=== PATIENT | male | born 1955 | race Caucasian/White ===

== ENCOUNTER 2017-03-19 20:01 | Emergency (ER) | payer OTHER, MEDICARE ==
[2017-03-19] MEDS ORDERED: Phenergan 25 MG INJ IV ONE ×2 (20:09→21:11)
[2017-03-19] MEDS ORDERED: Sodium Chloride 0.9% 1000 ML 1,000 ML IV STA (20:09)
--- NOTE | 2017-03-19 20:09 | ERPHSYRPT ---
- History of Present Illness Time Seen by Provider: 03/19/17 20:11 Historian: patient, family () Exam Limitations: no limitations Physician History: FOR THE PAST 3 DAYS PT HAS HAD A DECREASED APPETITE; FOR THE PAST 12 HOURS VOMITING X10 WITHOUT BLOOD. LAST BM WAS YESTERDAY AND NOT DIARRHEAL. PT HAS A HX OF CHRONIC BACK PAIN AND HEADACHES. PT DENIES CHEST PAIN, FEVER, SHORTNESS OF AIR; ADMITS TO SORE THROAT SINCE HE STARTED VOMITING THIS AM. PT STATES HE IS THIRSTY. Allergies/Adverse Reactions: ketorolac tromethamine [From Toradol] Allergy (Mild, Verified 05/18/16 23:15) Swelling lorazepam [From Ativan] Allergy (Mild, Verified 05/18/16 23:15) nalbuphine HCl [From Nubain] Allergy (Mild, Verified 05/18/16 23:15) Swelling gabapentin Allergy (Verified 05/18/16 23:15) Home Medications: Albuterol Common Canister [Proventil Common Canister] 2 puff IH BID [History] Amlodipine Besylate 5 mg PO DAILY 03/16/16 [History] Aspirin 81 mg PO DAILY 03/16/16 [History] Cyclobenzaprine HCl 10 mg [Cyclobenzaprine 10 MG] 10 mg PO TID 03/16/16 [ History] Docusate Sodium [Stool Softener] 50 mg PO DAILY 03/16/16 [History] Hydrocodone Bit/Acetaminophen [Hydrocodon-Acetaminophn 10-325] 1 each PO Q4- 6HPRN PRN 03/16/16 [History] Levothyroxine Sodium [Synthroid] 25 mcg PO DAILY 03/16/16 [History] Lisinopril 10 mg [Zestril 10 MG] 10 mg PO DAILY 03/16/16 [History] Morphine Sulfate [Morphine Sulfate ER] 60 mg PO BID 03/16/16 [History] Omeprazole 20 MG [Prilosec 20 mg] 20 mg PO DAILY 03/16/16 [History] Venlafaxine HCl [Effexor] 0 mg PO DAILY 03/16/16 [History] Hx Tetanus, Diphtheria Vaccination/Date Given: Yes (UP TO DATE) Hx Influenza Vaccination/Date Given: Yes Hx Pneumococcal Vaccination/Date Given: Yes - Review of Systems Constitutional: No Fever Respiratory: No Dyspnea Cardiac: No Chest Pain Abdominal/Gastrointestinal: Vomiting, Appetite Changes (DECREASED X 3 DAYS), No Diarrhea Musculoskeletal: Back Pain Neurological: Headache Endocrine: Other (THIRST), No Excessive Sweating All Other Systems: Reviewed and Negative - Past Medical History Pertinent Past Medical History: Yes Neurological History: Migraines ENT History: No Pertinent History Cardiac History: Hypertension, Myocardial Infarction ([place]) Respiratory History: Asthma, COPD Endocrine Medical History: No Pertinent History Musculoskeletal History: Arthritis, Other GI Medical History: Other History: Other Psycho-Social History: No Pertinent History Male Reproductive Disorders: No Pertinent History Other Medical History: HEART BURN. ACUTE RENAL FAILURE - Past Surgical History Past Surgical History: Yes Neuro Surgical History: No Pertinent History Cardiac: Cardiac Catheterization Respiratory: No Pertinent History Gastrointestinal: No Pertinent History Genitourinary: No Pertinent History Musculoskeletal: Orthopedic Surgery Male Surgical History: No Pertinent History Other Surgical History: neck, back lucía shoulders, lower back - Social History Smoking Status: Current every day smoker How long have you smoked: 40 Exposure to second hand smoke: Yes Drug Use: none Patient Lives Alone: No - Nursing Vital Signs Nursing Vital Signs: Initial Vital Signs Temperature 99.8 F Temperature Source Rectal Pulse Rate 52 Respiratory Rate 22 Blood Pressure [Right Arm] 133/77 Pain Intensity 9 - Physical Exam General Appearance: alert Eye Exam: PERRL/EOMI Ears, Nose, Throat Exam: TMs normal, pharyngeal erythema (MILD) Neck Exam: normal inspection Respiratory Exam: lungs clear Cardiovascular Exam: normal heart sounds Gastrointestinal/Abdomen Exam: soft, other (B.S. MILDLY HYPERACTIVE AND NORMOTONIC), No tenderness Back Exam: normal inspection Extremity Exam: normal inspection, No pedal edema Neurologic Exam: alert, cooperative Skin Exam: warm, dry - Course Nursing assessment & vital signs reviewed: Yes Ordered Tests: Active Orders 24 hr Category Date Time Status Cath for Specimen-Straight STAT Care 03/19/17 20:42 Active IV Insertion STAT Care 03/19/17 20:09 Active AMYLASE Stat Lab 03/19/17 20:30 Completed BMP Stat Lab 03/19/17 23:45 Completed CBC W DIFF Stat Lab 03/19/17 20:30 Completed CMP Stat Lab 03/19/17 20:30 Completed CULTURE, THROAT Stat Lab 03/19/17 21:20 Received CULTURE,URINE Stat Lab 03/19/17 20:38 Received LIPASE Stat Lab 03/19/17 20:30 Completed MAG [MAGNESIUM] Stat Lab 03/19/17 20:30 Completed [place] Screen Stat Lab 03/19/17 20:30 Completed STREP SCREEN-BETA A Stat Lab 03/19/17 21:20 Completed UA W/ MICROSCOPIC Stat Lab 03/19/17 20:38 Completed Urine Triage Profile Stat Lab 03/19/17 20:38 Completed Medication Summary Generic Name Dose Route Start Last Admin Trade Name Freq PRN Reason Stop Dose Admin Potassium Chloride/Sodium Chloride 1,000 mls @ 500 mls/hr 03/19/17 21:15 06/27 21:24 Sodium Chloride 0.9% W/ 20 Meq Kcl/Liter IV 04/18/17 21:14 500 mls/hr .Q2H NII Administration Potassium Chloride 20 meq 03/20/17 00:41 Klor Con 10 Meq PO 03/20/17 00:42 STAT ONE Discontinued Medications Generic Name Dose Route Start Last Admin Trade Name Abdullahiq PRN Reason Stop Dose Admin Hydromorphone HCl 2 mg 03/19/17 20:18 03/19/17 20:25 Hydromorphone 1 Mg/Ml Ampule IV 03/19/17 20:19 2 mg STAT ONE Administration Hydromorphone HCl Confirm 03/19/17 20:21 Hydromorphone 1 Mg/Ml Ampule Administered 03/19/17 20:22 Dose 1 mg .ROUTE .STK-MED ONE Hydromorphone HCl Confirm 03/19/17 20:26 Hydromorphone 1 Mg/Ml Ampule Administered 03/19/17 20:27 Dose 1 mg .ROUTE .STK-MED ONE Hydromorphone HCl 1 mg 03/19/17 21:11 03/19/17 21:26 Hydromorphone 1 Mg/Ml Ampule IV 03/19/17 21:12 1 mg STAT ONE Administration Hydromorphone HCl Confirm 03/19/17 21:20 Hydromorphone 1 Mg/Ml Ampule Administered 03/19/17 21:21 Dose 1 mg .ROUTE .STK-MED ONE Sodium Chloride 1,000 mls @ 999 mls/hr 03/19/17 20:09 03/19/17 20:40 Sodium Chloride 0.9% 1000 Ml IV 03/19/17 21:09 999 mls/hr .Q1H1M STA Administration Sodium Chloride Confirm 03/19/17 20:20 Sodium Chloride 0.9% 1000 Ml Administered 03/19/17 20:21 Dose 1,000 mls @ ud .ROUTE .STK-MED ONE Promethazine HCl 12.5 mg 03/19/17 20:09 03/19/17 20:24 Phenergan 25 Mg Inj IV 03/19/17 20:10 12.5 mg STAT ONE Administration Promethazine HCl Confirm 03/19/17 20:20 Phenergan 25 Mg Inj Administered 03/19/17 20:21 Dose 25 mg .ROUTE .STK-MED ONE Promethazine HCl Confirm 03/19/17 20:33 Phenergan 25 Mg Inj Administered 03/19/17 20:34 Dose 25 mg .ROUTE .STK-MED ONE Promethazine HCl 12.5 mg 03/19/17 21:11 03/19/17 21:26 Phenergan 25 Mg Inj IV 03/19/17 21:12 12.5 mg STAT ONE Administration Promethazine HCl Confirm 03/19/17 21:13 Phenergan 25 Mg Supp Administered 03/19/17 21:14 Dose 25 mg .ROUTE .STK-MED ONE Promethazine HCl Confirm 03/19/17 21:20 Phenergan 25 Mg Inj Administered 03/19/17 21:21 Dose 25 mg .ROUTE .STK-MED ONE Lab/Rad Data: Laboratory Result Diagrams 03/19/17 20:30 03/19/17 23:45 Laboratory Results 03/19/17 03/19/17 03/19/17 Range/Units 23:45 21:20 20:38 WBC (4.0-10.5) K/mm3 RBC (4.1-5.6) M/mm3 Hgb (12.5-18.0) gm/dl Hct (42-50) % MCV (78-100) fl MCH (26-32) pg MCHC (32-36) g/dl RDW (11.5-14.0) % Plt Count (150-450) K/mm3 MPV (6-9.5) fl Gran % (36.0-66.0) % Lymphocytes % (24.0-44.0) % Monocytes % (0.0-12.0) % Eosinophils % (0.00-5.0) % Basophils % (0.0-0.4) % Basophils # (0-0.4) Sodium 141 (136-145) mEq/L Potassium 3.4 L (3.5-5.1) mEq/L Chloride 108 H (98-107) mEq/L Carbon Dioxide 28.4 (21-32) mEq/L Anion Gap 8.3 (5-15) MEQ/L BUN 9 (9-20) mg/dL Creatinine 0.89 (0.55-1.30) mg/dl Estimated GFR > 60 ML/MIN Glucose 96 (70-110) MG/DL Calcium 8.0 L (8.5-10.1) mg/dL Magnesium (1.8-2.4) mg/dL Total Bilirubin (0.2-1.0) mg/dL AST (15-37) U/L ALT (12-78) U/L Alkaline Phosphatase (46-116) U/L Serum Total Protein (6.4-8.2) gm/dL Albumin (3.4-5.0) g/dL Amylase (25-115) U/L Lipase (73-393) U/L Ur Collection Type Urine Color (YELLOW) Urine Appearance (CLEAR) Urine pH (5-6) Ur Specific [place] (1.005-1.025) Urine Protein (Negative) Urine Glucose (UA) (NEGATIVE) mg/dL Urine Ketones (NEGATIVE) Urine Nitrite (NEGATIVE) Urine Bilirubin (NEGATIVE) Urine Urobilinogen (0-1) mg/dL Urine WBC (Auto) (NEGATIVE) Urine RBC (Auto) (0-5) Jourdan/ul Urine Microscopic RBC (0-2) /HPF Ur Epithelial Cells (FEW) /HPF Urine Bacteria (NEGATIVE) /HPF Urine Mucus (NEGATIVE) /HPF Urine Opiates Level POS. (NEGATIVE) Ur Methadone NEG. (NEGATIVE) Urine Barbiturates NEG. (NEGATIVE) Ur Phencyclidine (PCP) NEG. (NEGATIVE) Urine Amphetamine NEG. (NEGATIVE) U Benzodiazepine Level NEG. (NEGATIVE) Urine Cocaine NEG. (NEGATIVE) Urine Marijuana (THC) NEG. (NEGATIVE) Monoscreen (Negative) Streptococcus Screen NEGATIVE (Negative) Specimen Received 03/19/17 03/19/17 03/19/17 Range/Units 20:38 20:30 20:30 WBC (4.0-10.5) K/mm3 RBC (4.1-5.6) M/mm3 Hgb (12.5-18.0) gm/dl Hct (42-50) % MCV (78-100) fl MCH (26-32) pg MCHC (32-36) g/dl RDW (11.5-14.0) % Plt Count (150-450) K/mm3 MPV (6-9.5) fl Gran % (36.0-66.0) % Lymphocytes % (24.0-44.0) % Monocytes % (0.0-12.0) % Eosinophils % (0.00-5.0) % Basophils % (0.0-0.4) % Basophils # (0-0.4) Sodium (136-145) mEq/L Potassium (3.5-5.1) mEq/L Chloride (98-107) mEq/L Carbon Dioxide (21-32) mEq/L Anion Gap (5-15) MEQ/L BUN (9-20) mg/dL Creatinine (0.55-1.30) mg/dl Estimated GFR ML/MIN Glucose (70-110) MG/DL Calcium (8.5-10.1) mg/dL Magnesium 1.9 (1.8-2.4) mg/dL Total Bilirubin (0.2-1.0) mg/dL AST (15-37) U/L ALT (12-78) U/L Alkaline Phosphatase (46-116) U/L Serum Total Protein (6.4-8.2) gm/dL Albumin (3.4-5.0) g/dL Amylase (25-115) U/L Lipase (73-393) U/L Ur Collection Type CATH Urine Color ONUR (YELLOW) Urine Appearance SLIGHTLY CLOUDY (CLEAR) Urine pH 6.0 (5-6) Ur Specific [place] >=1.030 (1.005-1.025) Urine Protein 100 (Negative) Urine Glucose (UA) NEGATIVE (NEGATIVE) mg/dL Urine Ketones SMALL-15 (NEGATIVE) Urine Nitrite NEGATIVE (NEGATIVE) Urine Bilirubin SMALL (NEGATIVE) Urine Urobilinogen >=8.0 (0-1) mg/dL Urine WBC (Auto) NEGATIVE (NEGATIVE) Urine RBC (Auto) TRACE HEMOLYZED (0-5) Jourdan/ul Urine Microscopic RBC 0-2 (0-2) /HPF Ur Epithelial Cells RARE (FEW) /HPF Urine Bacteria FEW (NEGATIVE) /HPF Urine Mucus SLIGHT (NEGATIVE) /HPF Urine Opiates Level (NEGATIVE) Ur Methadone (NEGATIVE) Urine Barbiturates (NEGATIVE) Ur Phencyclidine (PCP) (NEGATIVE) Urine Amphetamine (NEGATIVE) U Benzodiazepine Level (NEGATIVE) Urine Cocaine (NEGATIVE) Urine Marijuana (THC) (NEGATIVE) Monoscreen POSITIVE (Negative) Streptococcus Screen (Negative) Specimen Received 03/19/17:203703/19/17 03/19/17 Range/Units 20:30 20:30 WBC 10.2 (4.0-10.5) K/mm3 RBC 5.33 (4.1-5.6) M/mm3 Hgb 15.7 (12.5-18.0) gm/dl Hct 45.3 (42-50) % MCV 85.0 (78-100) fl MCH 29.5 (26-32) pg MCHC 34.7 (32-36) g/dl RDW 13.9 (11.5-14.0) % Plt Count 313 (150-450) K/mm3 MPV 11.2 H (6-9.5) fl Gran % 71.1 H (36.0-66.0) % Lymphocytes % 21.6 L (24.0-44.0) % Monocytes % 6.2 (0.0-12.0) % Eosinophils % 0.7 (0.00-5.0) % Basophils % 0.4 (0.0-0.4) % Basophils # 0.04 (0-0.4) Sodium 140 (136-145) mEq/L Potassium 3.4 L (3.5-5.1) mEq/L Chloride 102 (98-107) mEq/L Carbon Dioxide 29.5 (21-32) mEq/L Anion Gap 12.2 (5-15) MEQ/L BUN 9 (9-20) mg/dL Creatinine 1.19 (0.55-1.30) mg/dl Estimated GFR > 60 ML/MIN Glucose 141 H (70-110) MG/DL Calcium 9.8 (8.5-10.1) mg/dL Magnesium (1.8-2.4) mg/dL Total Bilirubin 0.60 (0.2-1.0) mg/dL AST 42 H (15-37) U/L ALT 23 (12-78) U/L Alkaline Phosphatase 106 (46-116) U/L Serum Total Protein 8.5 H (6.4-8.2) gm/dL Albumin 3.8 (3.4-5.0) g/dL Amylase 67 (25-115) U/L Lipase 73 (73-393) U/L Ur Collection Type Urine Color (YELLOW) Urine Appearance (CLEAR) Urine pH (5-6) Ur Specific [place] (1.005-1.025) Urine Protein (Negative) Urine Glucose (UA) (NEGATIVE) mg/dL Urine Ketones (NEGATIVE) Urine Nitrite (NEGATIVE) Urine Bilirubin (NEGATIVE) Urine Urobilinogen (0-1) mg/dL Urine WBC (Auto) (NEGATIVE) Urine RBC (Auto) (0-5) Jourdan/ul Urine Microscopic RBC (0-2) /HPF Ur Epithelial Cells (FEW) /HPF Urine Bacteria (NEGATIVE) /HPF Urine Mucus (NEGATIVE) /HPF Urine Opiates Level (NEGATIVE) Ur Methadone (NEGATIVE) Urine Barbiturates (NEGATIVE) Ur Phencyclidine (PCP) (NEGATIVE) Urine Amphetamine (NEGATIVE) U Benzodiazepine Level (NEGATIVE) Urine Cocaine (NEGATIVE) Urine Marijuana (THC) (NEGATIVE) Monoscreen (Negative) Streptococcus Screen (Negative) Specimen Received - Departure Time of Disposition: 00:42 Departure Disposition: Home Clinical Impression: INFECTIOUS MONONUCLEOSIS, VOMITING, HYPOKALEMIA Condition: Stable Critical Care Time: No Referrals: MYNOR SCHULTE [Primary Care Provider] - Instructions: Vomiting -- Adult, Mononucleosis Additional Instructions: FOLLOW UP WITH PRIVATE DOCTOR TOMORROW. Prescriptions: Promethazine HCl 25 mg [Phenergan 25 mg] 25 mg PO Q4H PRN PRN #14 tablet PRN Reason: Nausea/Vomiting
[2017-03-19] MEDS ORDERED: Hydromorphone 1 mg/ml Ampule IV ONE ×2 (20:18→21:11)
[2017-03-19] MEDS ORDERED: Sodium Chloride 0.9% 1000 ML 1,000 ML ONE (20:20)
[2017-03-19] MEDS ORDERED: Phenergan 25 MG INJ ONE ×3 (20:20→21:20)
[2017-03-19] MEDS ORDERED: Hydromorphone 1 mg/ml Ampule ONE ×3 (20:21→21:20)
[2017-03-19 20:40] LABS: BASOPHIL % 0.4 % (0.0-0.4); Eosinophil % 0.7 % (0.00-5.0); Granulocytes % 71.1 % (36.0-66.0); Lymphocytes % 21.6 % (24.0-44.0); Mean Corpuscular Hemoglobin 29.5 pg (26-32); Mean Platelet Volume 11.2 fl (6-9.5); Monocytes % 6.2 % (0.0-12.0); Platelet Count 313 K/mm3 (150-450); Red Blood Count 5.33 M/mm3 (4.1-5.6); Red Cell Distribution Width 13.9 % (11.5-14.0); White Blood Count 10.2 K/mm3 (4.0-10.5)
[2017-03-19 20:51] LABS: ADD URINE CULTURE? YES (NO); Bacteria FEW /HPF (NEGATIVE); COMPLETE URINE MICROSCOPIC? YES; Collection Type CATH; Epithelial Cells RARE /HPF (FEW); Mucus SLIGHT /HPF (NEGATIVE)
[2017-03-19 21:00] LABS: ALBUMIN 3.8 g/dL (3.4-5.0); ALKALINE PHOSPHATASE 106 U/L (46-116); ANION GAP 12.2 MEQ/L (5-15); BLOOD UREA NITROGEN 9 mg/dL (9-20); CHLORIDE 102 mEq/L (98-107); Carbon Dioxide 29.5 mEq/L (21-32); Glucose 141 MG/DL (70-110); LIPASE 73 U/L (73-393); Potassium 3.4 mEq/L (3.5-5.1); SGOT/AST 42 U/L (15-37); SGPT/ALT 23 U/L (12-78); SODIUM 140 mEq/L (136-145); Total Protein 8.5 gm/dL (6.4-8.2)
[2017-03-19] MEDS ORDERED: PHENERGAN 25 MG ONE (21:13)
[2017-03-19] MEDS ORDERED: Sodium Chloride 0.9% W/ 20 mEq KCl/LITER 1,000 ML IV ONE (21:14)
[2017-03-19] MEDS ORDERED: Sodium Chloride 0.9% W/ 20 mEq KCl/LITER 1,000 ML IV SCH (21:15)
[2017-03-20 00:17] LABS: ANION GAP 8.3 MEQ/L (5-15); BLOOD UREA NITROGEN 9 mg/dL (9-20); CHLORIDE 108 mEq/L (98-107); Carbon Dioxide 28.4 mEq/L (21-32); Glucose 96 MG/DL (70-110); Potassium 3.4 mEq/L (3.5-5.1); SODIUM 141 mEq/L (136-145)
[2017-03-20] MEDS ORDERED: Klor Con 10 MEQ PO ONE ×2 (00:41→00:44)
[2017-03-20 00:53] VITALS: BP 136/78; PULSE 62; O2SAT 97
== END 2017-03-20 00:53 | disposition home or self-care (01) ==
LOC: ED 20:01
DX: B27.90 Infectious mononucleosis, unspecified without complication (principal); R11.10 Vomiting, unspecified; E87.6 Hypokalemia; R63.1 Polydipsia; I10 Essential (primary) hypertension; I25.2 Old myocardial infarction; J44.9 Chronic obstructive pulmonary disease, unspecified; Z79.899 Other long term (current) drug therapy
CPT/HCPCS: 36000; 36415; 80048; 80053; 80307; 81000; 82150; 83690; 83735; 85025; 86308; 87070; 87086; 87430; 96360; 96361; 96374; 96375; 96376; 99284; J1170; J2550; P9612; A9270-GY

== ENCOUNTER 2017-06-12 23:02 | Emergency (ER) | payer OTHER, MEDICARE ==
[2017-06-12] MEDS ORDERED: Zofran 4 MG/2 ML VIAL IV ONE (23:34)
[2017-06-12] MEDS ORDERED: Sodium Chloride 0.9% 1000 ML 1,000 ML IV STA (23:34)
[2017-06-12] MEDS ORDERED: BENADRYL 50 MG/ML IV ONE (23:34)
[2017-06-12] MEDS ORDERED: Hydromorphone 1 mg/ml Ampule IV ONE (23:34)
--- NOTE | 2017-06-12 23:34 | ERPHSYRPT ---
- History of Present Illness Time Seen by Provider: 06/12/17 23:31 Historian: patient, family Exam Limitations: no limitations Patient Subjective Stated Complaint: pt is co lower back pain all day no relief with his morphine and vicodin -he has a history of back apin and [facility] states the pain goes down both legs and he is having to walk with a pain denies new injury Triage Nursing Assessment: pt is awake and alert and able to answer questions - moaning with pain Physician History: pt states that this is not his usual back pain, no trauma , no new neuro symptoms, tender abd , no n/V; no neuro deficits; Timing/Duration: today Activities at Onset: none Quality: sharpness, stabbing, throbbing Abdominal Pain Onset Location: generalized abdomen Pain Radiation: flank, back Severity of Pain-Max: moderate Severity of Pain-Current: moderate Modifying Factors: Improves With: nothing Associated Symptoms: back Previous symptoms: different symptoms, recently seen, recently treated Allergies/Adverse Reactions: ketorolac tromethamine [From Toradol] Allergy (Mild, Verified 06/12/17 23:28) Swelling lorazepam [From Ativan] Allergy (Mild, Verified 06/12/17 23:28) nalbuphine HCl [From Nubain] Allergy (Mild, Verified 06/12/17 23:28) Swelling gabapentin Allergy (Verified 06/12/17 23:28) Home Medications: Albuterol Common Canister [Proventil Common Canister] 2 puff IH BID [History] Amlodipine Besylate 5 mg PO DAILY 03/16/16 [History] Aspirin 81 mg PO DAILY 03/16/16 [History] Cyclobenzaprine HCl 10 mg [Cyclobenzaprine 10 MG] 10 mg PO TID 03/16/16 [ History] Docusate Sodium [Stool Softener] 50 mg PO DAILY 03/16/16 [History] Hydrocodone Bit/Acetaminophen [Hydrocodon-Acetaminophn 10-325] 1 each PO Q4- 6HPRN PRN 03/16/16 [History] Levothyroxine Sodium [Synthroid] 25 mcg PO DAILY 03/16/16 [History] Lisinopril 10 mg [Zestril 10 MG] 10 mg PO DAILY 03/16/16 [History] Morphine Sulfate [Morphine Sulfate ER] 60 mg PO BID 03/16/16 [History] Omeprazole 20 MG [Prilosec 20 mg] 20 mg PO DAILY 03/16/16 [History] Venlafaxine HCl [Effexor] 0 mg PO DAILY 03/16/16 [History] Hx Tetanus, Diphtheria Vaccination/Date Given: Yes (UP TO DATE) Hx Influenza Vaccination/Date Given: Yes Hx Pneumococcal Vaccination/Date Given: Yes - Review of Systems Constitutional: No Fever, No Chills Eyes: No Symptoms Ears, Nose, & Throat: No Symptoms Respiratory: No Cough, No Dyspnea Cardiac: No Chest Pain, No Edema, No Syncope Abdominal/Gastrointestinal: Abdominal Pain, No Nausea, No Vomiting, No Diarrhea Genitourinary Symptoms: No Dysuria Musculoskeletal: Back Pain, No Neck Pain Skin: No Rash Neurological: No Dizziness, No Focal Weakness, No Sensory Changes Psychological: No Symptoms Endocrine: No Symptoms Hematologic/Lymphatic: No Symptoms Immunological/Allergic: No Symptoms All Other Systems: Reviewed and Negative - Past Medical History Pertinent Past Medical History: Yes Neurological History: Migraines ENT History: No Pertinent History Cardiac History: Hypertension, Myocardial Infarction ([place]) Respiratory History: Asthma, COPD Endocrine Medical History: No Pertinent History Musculoskeletal History: Arthritis, Other GI Medical History: Other History: Other Psycho-Social History: No Pertinent History Male Reproductive Disorders: No Pertinent History Other Medical History: HEART BURN. ACUTE RENAL FAILURE - Past Surgical History Past Surgical History: Yes Neuro Surgical History: No Pertinent History Cardiac: Cardiac Catheterization Respiratory: No Pertinent History Gastrointestinal: No Pertinent History Genitourinary: No Pertinent History Musculoskeletal: Orthopedic Surgery Male Surgical History: No Pertinent History Other Surgical History: neck, back lucía shoulders, lower back - Social History Smoking Status: Current every day smoker How long have you smoked: 40 Exposure to second hand smoke: Yes Drug Use: none Patient Lives Alone: No - Nursing Vital Signs Nursing Vital Signs: Initial Vital Signs Temperature 98 F 06/12/17 23:20 Pulse Rate 68 06/12/17 23:20 Respiratory Rate 16 06/12/17 23:20 Blood Pressure 96/50 06/12/17 23:20 O2 Sat by Pulse Oximetry 96 06/12/17 23:20 Pain Scale Pain Intensity [Back] 10 Pain Intensity 8 - Physical Exam General Appearance: mild distress, alert Eye Exam: PERRL/EOMI, eyes nml inspection Ears, Nose, Throat Exam: normal ENT inspection, pharynx normal, moist mucous membranes Neck Exam: normal inspection, non-tender, supple, full range of motion Respiratory Exam: normal breath sounds, lungs clear, No respiratory distress Cardiovascular Exam: regular rate/rhythm, normal heart sounds Gastrointestinal/Abdomen Exam: soft, tenderness, No mass, No pulsatile mass, No rebound Rectal Exam: deferred Back Exam: normal inspection, normal range of motion, No CVA tenderness, No vertebral tenderness Extremity Exam: normal inspection, normal range of motion, pelvis stable Neurologic Exam: alert, oriented x 3, cooperative, normal mood/affect, nml cerebellar function, sensation nml, No motor deficits Skin Exam: normal color, warm, dry SpO2: 96 Oxygen Delivery: Room Air - Course Nursing assessment & vital signs reviewed: Yes EKG Interpreted by Me: Sinus Rhythm, NORMAL AXIS, Non-specific ST Changes - CT Exams Abdomen/Pelvis CT Interpretation: Tele-radiologist Report, Normal Appendix, Other ( diverticulosis, pleural calc) Ordered Tests: Active Orders 24 hr Category Date Time Status Clean Catch Urine Specimen STAT Care 06/12/17 23:34 Active EKG-ER Only STAT Care 06/12/17 23:34 Active IV Insertion STAT Care 06/12/17 23:34 Active NPO (ED) STAT Care 06/12/17 23:34 Active ABDOMEN AND PELVIS W/0 CONTRAS [CT] Stat Exams 06/12/17 23:34 Taken AMYLASE Stat Lab 06/12/17 23:34 Completed CBC W DIFF Stat Lab 06/12/17 23:34 Completed CMP Stat Lab 06/12/17 23:34 Completed LIPASE Stat Lab 06/12/17 23:34 Completed Occult Blood,Stool Other Stat Lab 06/12/17 23:34 Uncollected TROPONIN Q3H Lab 06/12/17 23:45 Completed TROPONIN Q3H Lab 06/13/17 02:45 Ordered TROPONIN Q3H Lab 06/13/17 05:45 Ordered TROPONIN Q3H Lab 06/13/17 08:45 Ordered TROPONIN Q3H Lab 06/13/17 11:45 Ordered UA W/ MICROSCOPIC Stat Lab 06/13/17 00:30 Completed Medication Summary Discontinued Medications Generic Name Dose Route Start Last Admin Trade Name Freq PRN Reason Stop Dose Admin Diphenhydramine HCl 25 mg 06/12/17 23:34 06/13/17 00:46 Benadryl 50 Mg/Ml IV 06/12/17 23:35 25 mg STAT ONE Administration Diphenhydramine HCl Confirm 06/13/17 00:44 Benadryl 50 Mg/Ml Administered 06/13/17 00:45 Dose 50 mg .ROUTE .STK-MED ONE Hydromorphone HCl 1 mg 06/12/17 23:34 06/13/17 00:47 Hydromorphone 1 Mg/Ml Ampule IV 06/12/17 23:35 1 mg STAT ONE Administration Hydromorphone HCl Confirm 06/13/17 00:44 Hydromorphone 1 Mg/Ml Ampule Administered 06/13/17 00:45 Dose 1 mg .ROUTE .STK-MED ONE Sodium Chloride 1,000 mls @ 999 mls/hr 06/12/17 23:34 06/13/17 00:47 Sodium Chloride 0.9% 1000 Ml IV 06/13/17 00:34 999 mls/hr .Q1H1M STA Administration Sodium Chloride Confirm 06/13/17 00:45 Sodium Chloride 0.9% 1000 Ml Administered 06/13/17 00:46 Dose 1,000 mls @ ud .ROUTE .STK-MED ONE Ondansetron HCl 4 mg 06/12/17 23:34 06/13/17 00:47 Zofran 4 Mg/2 Ml Vial IV 06/12/17 23:35 4 mg STAT ONE Administration Ondansetron HCl Confirm 06/13/17 00:45 Zofran 4 Mg/2 Ml Vial Administered 06/13/17 00:46 Dose 4 mg .ROUTE .STK-MED ONE Lab/Rad Data: Laboratory Result Diagrams 06/13/17 00:35 06/13/17 00:35 Laboratory Results 06/13/17 06/13/17 06/13/17 Range/Units 00:45 00:35 00:35 WBC (4.0-10.5) K/mm3 RBC (4.1-5.6) M/mm3 Hgb (12.5-18.0) gm/dl Hct (42-50) % MCV (78-100) fl MCH (26-32) pg MCHC (32-36) g/dl RDW (11.5-14.0) % Plt Count (150-450) K/mm3 MPV (6-9.5) fl Gran % (36.0-66.0) % Lymphocytes % (24.0-44.0) % Monocytes % (0.0-12.0) % Eosinophils % (0.00-5.0) % Basophils % (0.0-0.4) % Basophils # (0-0.4) Sodium 138 (136-145) mEq/L Potassium 3.3 L (3.5-5.1) mEq/L Chloride 101 (98-107) mEq/L Carbon Dioxide 26.9 (21-32) mEq/L Anion Gap 13.6 (5-15) MEQ/L BUN 7 L (9-20) mg/dL Creatinine 1.02 (0.55-1.30) mg/dl Estimated GFR > 60 ML/MIN Glucose 114 H (70-110) MG/DL Lactic Acid 1.5 (0.4-2.0) Calcium 9.1 (8.5-10.1) mg/dL Total Bilirubin 0.10 L (0.2-1.0) mg/dL AST 18 (15-37) U/L ALT 16 (12-78) U/L Alkaline Phosphatase 92 (46-116) U/L Troponin I < 0.017 (0.000-0.056) ng/ml Serum Total Protein 6.8 (6.4-8.2) gm/dL Albumin 3.4 (3.4-5.0) g/dL Amylase 77 (25-115) U/L Lipase 88 (73-393) U/L Ur Collection Type Urine Color (YELLOW) Urine Appearance (CLEAR) Urine pH (5-6) Ur Specific [place] (1.005-1.025) Urine Protein (Negative) Urine Ketones (NEGATIVE) Urine Blood (0-5) Jourdan/ul Urine Nitrite (NEGATIVE) Urine Bilirubin (NEGATIVE) Urine Urobilinogen (0-1) mg/dL Ur Leukocyte Esterase (NEGATIVE) Urine Microscopic RBC (0-2) /HPF Ur Epithelial Cells (FEW) /HPF Urine Glucose (NEGATIVE) mg/dL Specimen Received 06/13/17 06/13/17 Range/Units 00:35 00:30 WBC 6.8 (4.0-10.5) K/mm3 RBC 4.66 (4.1-5.6) M/mm3 Hgb 13.9 (12.5-18.0) gm/dl Hct 40.5 L (42-50) % MCV 86.9 (78-100) fl MCH 29.8 (26-32) pg MCHC 34.3 (32-36) g/dl RDW 13.3 (11.5-14.0) % Plt Count 301 (150-450) K/mm3 MPV 10.6 H (6-9.5) fl Gran % 44.1 (36.0-66.0) % Lymphocytes % 43.2 (24.0-44.0) % Monocytes % 8.4 (0.0-12.0) % Eosinophils % 3.4 (0.00-5.0) % Basophils % 0.9 (0.0-0.4) % Basophils # 0.06 (0-0.4) Sodium (136-145) mEq/L Potassium (3.5-5.1) mEq/L Chloride (98-107) mEq/L Carbon Dioxide (21-32) mEq/L Anion Gap (5-15) MEQ/L BUN (9-20) mg/dL Creatinine (0.55-1.30) mg/dl Estimated GFR ML/MIN Glucose (70-110) MG/DL Lactic Acid (0.4-2.0) Calcium (8.5-10.1) mg/dL Total Bilirubin (0.2-1.0) mg/dL AST (15-37) U/L ALT (12-78) U/L Alkaline Phosphatase (46-116) U/L Troponin I (0.000-0.056) ng/ml Serum Total Protein (6.4-8.2) gm/dL Albumin (3.4-5.0) g/dL Amylase (25-115) U/L Lipase (73-393) U/L Ur Collection Type CLEAN CATCH Urine Color YELLOW (YELLOW) Urine Appearance CLEAR (CLEAR) Urine pH 5.5 (5-6) Ur Specific [place] 1.005 (1.005-1.025) Urine Protein NEGATIVE (Negative) Urine Ketones NEGATIVE (NEGATIVE) Urine Blood 250 (0-5) Jourdan/ul Urine Nitrite NEGATIVE (NEGATIVE) Urine Bilirubin NEGATIVE (NEGATIVE) Urine Urobilinogen NORMAL (0-1) mg/dL Ur Leukocyte Esterase NEGATIVE (NEGATIVE) Urine Microscopic RBC 5-10 (0-2) /HPF Ur Epithelial Cells FEW (FEW) /HPF Urine Glucose NEGATIVE (NEGATIVE) mg/dL Specimen Received 06/13/17:0035 - Progress Progress: improved, re-examined Progress Note: 06/13/17 02:25 explained to pt that we di dnot find the cause for his pain and that undetected pathology could be evolving , and needs further w/u bita for hematuria ; and for calc lung lesions; Counseled pt/family regarding: lab results, diagnosis, need for follow-up, rad results - Departure Time of Disposition: 02:26 Departure Disposition: Home Clinical Impression: Abdominal pain of unknown cause, Diverticulosis, Hematuria Condition: Good Critical Care Time: No Referrals: MYNOR SCHULTE [Primary Care Provider] - Instructions: Back Pain With Sciatica, Abdominal Pain-Adult, Hematuria Additional Instructions: although we found diverticulosis, and blood in urine , these are not likely the cause of your pain, and further workup is advised with your Drs. as additional conditions may be developing undetected. also calcified nodes in the lungs indicate an old unrelated infection of lung condition - return meantime if not improving or any concenrs.
[2017-06-13] MEDS ORDERED: BENADRYL 50 MG/ML ONE (00:44)
[2017-06-13] MEDS ORDERED: Hydromorphone 1 mg/ml Ampule ONE ×2 (00:44→02:34)
[2017-06-13] MEDS ORDERED: Sodium Chloride 0.9% 1000 ML 1,000 ML ONE (00:45)
[2017-06-13] MEDS ORDERED: Zofran 4 MG/2 ML VIAL ONE (00:45)
[2017-06-13 00:55] LABS: BASOPHIL % 0.9 % (0.0-0.4); Eosinophil % 3.4 % (0.00-5.0); Granulocytes % 44.1 % (36.0-66.0); Lymphocytes % 43.2 % (24.0-44.0); Mean Cell Volume 86.9 fl (78-100); Mean Corpuscular Hemoglobin 29.8 pg (26-32); Mean Platelet Volume 10.6 fl (6-9.5); Monocytes % 8.4 % (0.0-12.0); Platelet Count 301 K/mm3 (150-450); Red Blood Count 4.66 M/mm3 (4.1-5.6); Red Cell Distribution Width 13.3 % (11.5-14.0); White Blood Count 6.8 K/mm3 (4.0-10.5)
[2017-06-13 01:08] LABS: ALBUMIN 3.4 g/dL (3.4-5.0); ALKALINE PHOSPHATASE 92 U/L (46-116); ANION GAP 13.6 MEQ/L (5-15); BLOOD UREA NITROGEN 7 mg/dL (9-20); CHLORIDE 101 mEq/L (98-107); Carbon Dioxide 26.9 mEq/L (21-32); Glucose 114 MG/DL (70-110); LIPASE 88 U/L (73-393); Potassium 3.3 mEq/L (3.5-5.1); SGOT/AST 18 U/L (15-37); SGPT/ALT 16 U/L (12-78); SODIUM 138 mEq/L (136-145); Total Protein 6.8 gm/dL (6.4-8.2)
[2017-06-13 01:14] LABS: ADD URINE CULTURE? NO (NO); Bilirubin NEGATIVE (NEGATIVE); Blood 250 Ery/ul (0-5); COMPLETE URINE MICROSCOPIC? YES; Collection Type CLEAN CATCH; Epithelial Cells FEW /HPF (FEW); Glucose NEGATIVE (NEGATIVE); Leukocyte Esterase NEGATIVE (NEGATIVE)
[2017-06-13 01:51] VITALS: PULSE 79
[2017-06-13] MEDS ORDERED: Hydromorphone 1 mg/ml Ampule IV ONE (02:31)
[2017-06-13 02:53] VITALS: BP 137/70; O2SAT 100
--- NOTE | 2017-06-13 08:01 | XRAY ---
Indication: Abdomen and low back pain. Multiple contiguous axial images obtained through the abdomen and pelvis without contrast as ordered. Comparison: October 28, 2014. Lung bases demonstrates stable left lung base calcified plaquing. No infiltrate or effusion. Heart is not enlarged. Noncontrasted stomach and bowel loops appear nonobstructed. Moderate fecal debris in the ascending and transverse colon. Normal appendix. No free fluid/air. Remaining liver, gallbladder, pancreas, spleen, adrenal glands, kidneys, ureters, and bladder appear unremarkable for noncontrast exam. There remains minimal aortoiliac calcifications without AAA. Osseous structures intact again with lower lumbar spine degenerative changes and right L5 laminectomy. Impression: 1. Fecal stasis without obstruction. 2. No new or acute intra-abdominal/pelvic abnormalities on this noncontrast exam. 3. Stable left lung base calcified pleural plaquing. Comment: Preliminary interpretation was made by C. No discrepancy. CTDI 17.52
== END 2017-06-13 02:53 | disposition home or self-care (01) ==
LOC: ED 23:02
DX: R10.9 Unspecified abdominal pain (principal); K57.90 Diverticulosis of intestine, part unspecified, without perforation or abscess without bleeding; R31.9 Hematuria, unspecified; M54.9 Dorsalgia, unspecified
CPT/HCPCS: 36000; 36415; 74176; 80053; 81000; 82150; 83605; 83690; 84484; 85025; 93005; 96360; 96361; 96372; 96374; 96375; 99284; J1170; J1200; J2405

== ENCOUNTER 2017-08-10 01:12 | Observation (INO) | payer MEDICARE, OTHER ==
[2017-08-10] MEDS ORDERED: MORPHINE SULFATE 4 MG INJ IV ONE (01:17)
[2017-08-10] MEDS ORDERED: Vistaril 50 MG/ML IM ONE ×2 (01:18→01:26)
[2017-08-10] MEDS ORDERED: MORPHINE SULFATE 4 MG INJ ONE (01:26)
[2017-08-10] MEDS ORDERED: Sodium Chloride 0.9% 1000 ML 1,000 ML ONE (01:26)
[2017-08-10] MEDS ORDERED: Sodium Chloride 0.9% 1000 ML 1,000 ML IV SCH (01:30)
[2017-08-10 01:35] LABS: BASOPHIL % 0.4 % (0.0-0.4); Eosinophil % 0.6 % (0.00-5.0); Granulocytes % 81.1 % (36.0-66.0); Lymphocytes % 13.5 % (24.0-44.0); Mean Cell Volume 86.7 fl (78-100); Mean Corpuscular Hemoglobin 29.4 pg (26-32); Mean Platelet Volume 10.5 fl (6-9.5); Monocytes % 4.4 % (0.0-12.0); Platelet Count 272 K/mm3 (150-450); Red Blood Count 4.66 M/mm3 (4.1-5.6); Red Cell Distribution Width 13.6 % (11.5-14.0); White Blood Count 12.3 K/mm3 (4.0-10.5)
--- NOTE | 2017-08-10 01:44 | ERPHSYRPT ---
- History of Present Illness Time Seen by Provider: 08/10/17 01:17 Source: patient, family (), EMS Physician History: CC: chest pain HX: 61 y/o patient of Dr Bloom and PARMINDER. He has chronic pain syndrome. Slight [place] in past without intervention. [facility] 60mg BID to 15 BID and then he ran out and was out for a few days. He then got morphine and norco again. Tonite went to bed and he was eating in bed. She awoke and he had vomiting and diarrhea and severe chest pain. Anxious. EMS was called. EMS noted vomiting. Gave ASA. Gave zofran. He had ventricular trigeminy. On arrival he was improving. Timing/Duration: today Severity: severe Allergies/Adverse Reactions: ketorolac tromethamine [From Toradol] Allergy (Mild, Verified 08/10/17 01:47) Swelling lorazepam [From Ativan] Allergy (Mild, Verified 08/10/17 01:47) nalbuphine HCl [From Nubain] Allergy (Mild, Verified 08/10/17 01:47) Swelling gabapentin Allergy (Verified 08/10/17 01:47) Home Medications: Amlodipine Besylate 5 mg PO DAILY 03/16/16 [History] Aspirin 81 mg PO DAILY 03/16/16 [History] Cyclobenzaprine HCl 10 mg [Cyclobenzaprine 10 MG] 10 mg PO TID 03/16/16 [ History] Hydrocodone Bit/Acetaminophen [Hydrocodon-Acetaminophn 10-325] 1 each PO DAILY PRN PRN 03/16/16 [History] Levothyroxine Sodium [Synthroid] 25 mcg PO DAILY 03/16/16 [History] Lisinopril 10 mg [Zestril 10 MG] 10 mg PO DAILY 03/16/16 [History] Morphine Sulfate [Morphine Sulfate ER] 15 mg PO BID 03/16/16 [History] Omeprazole 20 MG [Prilosec 20 mg] 20 mg PO DAILY 03/16/16 [History] Venlafaxine HCl [Effexor] 0 mg PO DAILY 03/16/16 [History] Metoprolol Tartrate 25 mg [Lopressor 25MG Tab] 50 mg PO BID 08/10/17 [ History] Hx Tetanus, Diphtheria Vaccination/Date Given: Yes (UP TO DATE) Hx Influenza Vaccination/Date Given: Yes Hx Pneumococcal Vaccination/Date Given: Yes - Review of Systems Constitutional: Malaise, No Fever, No Chills Eyes: No Symptoms Ears, Nose, & Throat: No Symptoms Respiratory: No Cough, No Dyspnea Cardiac: Chest Pain, No Edema, No Palpitations, No Syncope Abdominal/Gastrointestinal: Nausea, Vomiting, Diarrhea, No Abdominal Pain Genitourinary Symptoms: No Dysuria Musculoskeletal: No Back Pain, No Neck Pain Skin: No Rash Neurological: No Headache All Other Systems: Reviewed and Negative - Past Medical History Pertinent Past Medical History: Yes Neurological History: Migraines ENT History: No Pertinent History Cardiac History: Hypertension, Myocardial Infarction ([place]) Respiratory History: Asthma, COPD Endocrine Medical History: No Pertinent History Musculoskeletal History: Arthritis, Other GI Medical History: Other History: Other Psycho-Social History: No Pertinent History Male Reproductive Disorders: No Pertinent History Other Medical History: HEART BURN. Hx: ACUTE RENAL FAILURE. Chronic pain syndrome- back disks - Past Surgical History Past Surgical History: Yes Neuro Surgical History: No Pertinent History Cardiac: Cardiac Catheterization Respiratory: No Pertinent History Gastrointestinal: No Pertinent History Genitourinary: No Pertinent History Musculoskeletal: Orthopedic Surgery Male Surgical History: No Pertinent History Other Surgical History: neck, back lucía shoulders, lower back - Social History Smoking Status: Current every day smoker How long have you smoked: 40 Exposure to second hand smoke: Yes Drug Use: none Patient Lives Alone: No (lives with and 2 daughters who are nurses) - Nursing Vital Signs Nursing Vital Signs: Initial Vital Signs Temperature 98.2 F 08/10/17 01:36 Pulse Rate 56 L 08/10/17 01:36 Respiratory Rate 18 08/10/17 01:36 Blood Pressure 127/82 08/10/17 01:36 O2 Sat by Pulse Oximetry 96 08/10/17 01:36 Pain Scale Pain Intensity 3 - Physical Exam General Appearance: alert Eye Exam: PERRL/EOMI, pale conjunctivae Ears, Nose, Throat Exam: moist mucous membranes Neck Exam: normal inspection, non-tender, supple Respiratory Exam: normal breath sounds Cardiovascular Exam: regular rate/rhythm Gastrointestinal/Abdomen Exam: soft, No tenderness, No distention, No mass, No guarding Male Genitalia Exam: normal genitalia Back Exam: normal inspection Extremity Exam: normal inspection, normal range of motion, pedal edema (trace bilateral) Neurologic Exam: alert, oriented x 3, cooperative, group underwriter II-XII nml as tested, sensation nml, No motor deficits Skin Exam: dry, pale, other (gooseflesh on torso), No rash - Course Nursing assessment & vital signs reviewed: Yes EKG Interpreted by Me: RATE (60), Sinus Rhythm, NORMAL AXIS, NORMAL INTERVALS ( QTc 444), Non-specific ST Changes (anterior) - Radiology Exams cxr X-ray Interpretation: Reviewed by me, Negative Ordered Tests: Active Orders 24 hr Category Date Time Status Clean Catch Urine Specimen STAT Care 08/10/17 01:17 Active EKG-ER Only STAT Care 08/10/17 01:17 Active IV Insertion STAT Care 08/10/17 01:17 Active NPO (ED) STAT Care 08/10/17 01:17 Active CHEST 1 VIEW (PORTABLE) Stat Exams 08/10/17 01:17 Taken CBC W DIFF Stat Lab 08/10/17 01:31 Completed CMP Stat Lab 08/10/17 01:31 Completed LIPASE Stat Lab 08/10/17 01:31 Completed Lactic Acid Stat Lab 08/10/17 01:27 Results MAGNESIUM Stat Lab 08/10/17 01:31 Completed PROTIME WITH INR Stat Lab 08/10/17 01:31 Completed PTT Stat Lab 08/10/17 01:31 Completed TROPONIN Q3H Lab 08/10/17 01:31 Completed TROPONIN Q3H Lab 08/10/17 04:30 Ordered TROPONIN Q3H Lab 08/10/17 07:30 Ordered TROPONIN Q3H Lab 08/10/17 10:30 Ordered TROPONIN Q3H Lab 08/10/17 13:30 Ordered UA W/RFX UR CULTURE Stat Lab 08/10/17 02:04 Received Urine Triage Profile Stat Lab 08/10/17 02:04 Received Medication Summary Generic Name Dose Route Start Last Admin Trade Name Freq PRN Reason Stop Dose Admin Sodium Chloride 1,000 mls @ 100 mls/hr 08/10/17 01:30 08/10/17 01:33 Sodium Chloride 0.9% 1000 Ml IV 09/09/17 01:29 100 mls/hr .Q10H NII Administration Discontinued Medications Generic Name Dose Route Start Last Admin Trade Name Freq PRN Reason Stop Dose Admin Hydroxyzine HCl 50 mg 08/10/17 01:18 08/10/17 01:32 Vistaril 50 Mg/Ml IM 08/10/17 01:19 50 mg STAT ONE Administration Hydroxyzine HCl Confirm 08/10/17 01:26 Vistaril 50 Mg/Ml Administered 08/10/17 01:27 Dose 50 mg IM .STK-MED ONE Morphine Sulfate 4 mg 08/10/17 01:17 08/10/17 01:32 Morphine Sulfate 4 Mg Inj IV 08/10/17 01:18 4 mg STAT ONE Administration Morphine Sulfate Confirm 08/10/17 01:26 Morphine Sulfate 4 Mg Inj Administered 08/10/17 01:27 Dose 4 mg .ROUTE .STK-MED ONE Lab/Rad Data: Laboratory Result Diagrams 08/10/17 01:31 08/10/17 01:31 Laboratory Results 08/10/17 08/10/17 08/10/17 Range/Units 01:31 01:31 01:31 WBC (4.0-10.5) K/mm3 RBC (4.1-5.6) M/mm3 Hgb (12.5-18.0) gm/dl Hct (42-50) % MCV (78-100) fl MCH (26-32) pg MCHC (32-36) g/dl RDW (11.5-14.0) % Plt Count (150-450) K/mm3 MPV (6-9.5) fl Gran % (36.0-66.0) % Lymphocytes % (24.0-44.0) % Monocytes % (0.0-12.0) % Eosinophils % (0.00-5.0) % Basophils % (0.0-0.4) % Basophils # (0-0.4) INR 0.99 (0.8-3.0) APTT 24.6 (24.1-36.1) SECONDS Sodium (136-145) mEq/L Potassium (3.5-5.1) mEq/L Chloride (98-107) mEq/L Carbon Dioxide (21-32) mEq/L Anion Gap (5-15) MEQ/L BUN (9-20) mg/dL Creatinine (0.55-1.30) mg/dl Estimated GFR ML/MIN Glucose (70-110) MG/DL Lactic Acid (0.4-2.0) Calcium (8.5-10.1) mg/dL Magnesium (1.8-2.4) mg/dL Total Bilirubin (0.2-1.0) mg/dL AST (15-37) U/L ALT (12-78) U/L Alkaline Phosphatase (46-116) U/L Troponin I < 0.017 (0.000-0.056) ng/ml Serum Total Protein (6.4-8.2) gm/dL Albumin (3.4-5.0) g/dL Lipase (73-393) U/L 08/10/17 08/10/17 08/10/17 Range/Units 01:31 :31 01:31 WBC 12.3 H (4.0-10.5) K/mm3 RBC 4.66 (4.1-5.6) M/mm3 Hgb 13.7 (12.5-18.0) gm/dl Hct 40.4 L (42-50) % MCV 86.7 (78-100) fl MCH 29.4 (26-32) pg MCHC 33.9 (32-36) g/dl RDW 13.6 (11.5-14.0) % Plt Count 272 (150-450) K/mm3 MPV 10.5 H (6-9.5) fl Gran % 81.1 H (36.0-66.0) % Lymphocytes % 13.5 L (24.0-44.0) % Monocytes % 4.4 (0.0-12.0) % Eosinophils % 0.6 (0.00-5.0) % Basophils % 0.4 (0.0-0.4) % Basophils # 0.05 (0-0.4) INR (0.8-3.0) APTT (24.1-36.1) SECONDS Sodium 137 (136-145) mEq/L Potassium 3.8 (3.5-5.1) mEq/L Chloride 101 (98-107) mEq/L Carbon Dioxide 23.8 (21-32) mEq/L Anion Gap 16.2 H (5-15) MEQ/L BUN 12 (9-20) mg/dL Creatinine 1.22 (0.55-1.30) mg/dl Estimated GFR > 60 ML/MIN Glucose 144 H (70-110) MG/DL Lactic Acid (0.4-2.0) Calcium 8.6 (8.5-10.1) mg/dL Magnesium 1.8 (1.8-2.4) mg/dL Total Bilirubin 0.30 (0.2-1.0) mg/dL AST 23 (15-37) U/L ALT 22 (12-78) U/L Alkaline Phosphatase 86 (46-116) U/L Troponin I (0.000-0.056) ng/ml Serum Total Protein 7.0 (6.4-8.2) gm/dL Albumin 3.7 (3.4-5.0) g/dL Lipase 64 L (73-393) U/L 08/10/17 Range/Units 01:27 WBC (4.0-10.5) K/mm3 RBC (4.1-5.6) M/mm3 Hgb (12.5-18.0) gm/dl Hct (42-50) % MCV (78-100) fl MCH (26-32) pg MCHC (32-36) g/dl RDW (11.5-14.0) % Plt Count (150-450) K/mm3 MPV (6-9.5) fl Gran % (36.0-66.0) % Lymphocytes % (24.0-44.0) % Monocytes % (0.0-12.0) % Eosinophils % (0.00-5.0) % Basophils % (0.0-0.4) % Basophils # (0-0.4) INR (0.8-3.0) APTT (24.1-36.1) SECONDS Sodium (136-145) mEq/L Potassium (3.5-5.1) mEq/L Chloride (98-107) mEq/L Carbon Dioxide (21-32) mEq/L Anion Gap (5-15) MEQ/L BUN (9-20) mg/dL Creatinine (0.55-1.30) mg/dl Estimated GFR ML/MIN Glucose (70-110) MG/DL Lactic Acid 2.0 (0.4-2.0) Calcium (8.5-10.1) mg/dL Magnesium (1.8-2.4) mg/dL Total Bilirubin (0.2-1.0) mg/dL AST (15-37) U/L ALT (12-78) U/L Alkaline Phosphatase (46-116) U/L Troponin I (0.000-0.056) ng/ml Serum Total Protein (6.4-8.2) gm/dL Albumin (3.4-5.0) g/dL Lipase (73-393) U/L - Progress Progress Note: 08/10/17 01:44 IV morphine and IM vistaril given on arrival. He has settled down, no vomiting, no pain at present. at bedside. She feels he has some degree of withdrawal. 08/10/17 02:10 Ptient now pain free and feels better. Vitals stable. Labs reassuring. He [facility] not want [facility] and prefers observation here. CAlled Dr Bloom who will place in tele obs for serial troponins. Discussed with : Wolf Will see patient in: hospital (observation) Counseled pt/family regarding: lab results, diagnosis, need for follow-up, rad results - Departure Time of Disposition: 02:11 Departure Disposition: Observation (Tele) Clinical Impression: Chest pain, rule out acute myocardial infarction, Vomiting and diarrhea, Opioid withdrawal Condition: Fair Critical Care Time: No Referrals: MYNOR BLOOM [Primary Care Provider] -
[2017-08-10 01:45] LABS: INR 0.99 (0.8-3.0)
[2017-08-10 01:54] LABS: ALBUMIN 3.7 g/dL (3.4-5.0); ALKALINE PHOSPHATASE 86 U/L (46-116); ANION GAP 16.2 MEQ/L (5-15); BLOOD UREA NITROGEN 12 mg/dL (9-20); CHLORIDE 101 mEq/L (98-107); Carbon Dioxide 23.8 mEq/L (21-32); Glucose 144 MG/DL (70-110); LIPASE 64 U/L (73-393); Potassium 3.8 mEq/L (3.5-5.1); SGOT/AST 23 U/L (15-37); SGPT/ALT 22 U/L (12-78); SODIUM 137 mEq/L (136-145)
[2017-08-10 02:18] LABS: Collection Type CLEAN CATCH; Glucose NEGATIVE (NEGATIVE); Leukocyte Esterase NEGATIVE (NEGATIVE)
[2017-08-10 02:19] LABS: Bacteria RARE /HPF (NEGATIVE); Bilirubin NEGATIVE (NEGATIVE); Blood 50 Ery/ul (0-5); COMPLETE URINE MICROSCOPIC? YES; Epithelial Cells RARE /HPF (FEW); Mucus SLIGHT /HPF (NEGATIVE)
[2017-08-10 02:20] LABS: ADD URINE CULTURE? NO (NO)
[2017-08-10] MEDS ORDERED: MAALOX ES 30 ML UNIT DOSE PO PRN (03:54)
[2017-08-10] MEDS ORDERED: ATARAX 25 MG PO SCH ×2 (03:54→12:00)
[2017-08-10] MEDS ORDERED: TYLENOL 325 MG PO PRN (03:54)
[2017-08-10] MEDS ORDERED: Sodium Chloride 0.9% 500 ML 500 ML IV SCH (03:54)
[2017-08-10] MEDS ORDERED: MORPHINE SULFATE 4 MG INJ IV PRN (03:54)
[2017-08-10] MEDS ORDERED: MILK OF MAGNESIA 30 ML PO PRN (03:54)
[2017-08-10] MEDS ORDERED: Senokot-S Tablet PO PRN (03:54)
[2017-08-10 06:46] VITALS: BP 134/65; PULSE 58; O2SAT 98
--- NOTE | 2017-08-10 08:10 | PCM.DCORD ---
- Discharge Discharge Date: 08/10/17 Condition: Stable Prescriptions: Continue Venlafaxine HCl [Effexor] 75 mg PO DAILY Levothyroxine Sodium [Synthroid] 25 mcg PO DAILY Omeprazole 20 MG [Prilosec 20 mg] 20 mg PO DAILY Hydrocodone Bit/Acetaminophen [Hydrocodon-Acetaminophn 10-325] 1 each PO DAILY PRN PRN PRN Reason: Moderate Pain Morphine Sulfate [Morphine Sulfate ER] 15 mg PO BID Cyclobenzaprine HCl 10 mg [Cyclobenzaprine 10 MG] 10 mg PO TID Lisinopril 10 mg [Zestril 10 MG] 10 mg PO DAILY Aspirin 81 mg PO DAILY Amlodipine Besylate 5 mg PO DAILY Metoprolol Tartrate 25 mg [Lopressor 25MG Tab] 50 mg PO BID Diphenhydramine HCl 25 mg [Benadryl 25 mg Capsule] 100 mg PO HS PRN PRN PRN Reason: insomnia/itching Additional Instructions: [facility] Follow up with: MYNOR SCHULTE [Primary Care Provider] -
[2017-08-10] MEDS ORDERED: Norco 10/325 MG Tablet PO PRN (08:30)
[2017-08-10] MEDS ORDERED: BENADRYL 25 MG CAPSULE PO PRN (08:30)
--- NOTE | 2017-08-10 09:02 | XRAY ---
Indication: Chest pain. Comparison: May 18, 2016. Portable chest remains clear. Heart is not enlarged. Bony thorax intact. No new/acute findings.
[2017-08-10] MEDS ORDERED: NON-FORMULARY ITEM (Aspirin [Aspirin] 81 MG) PO SCH (10:00)
[2017-08-10] MEDS ORDERED: Cyclobenzaprine 10 MG PO SCH (10:00)
[2017-08-10] MEDS ORDERED: Ecotrin 325 MG PO SCH (10:00)
[2017-08-10] MEDS ORDERED: Protonix 40MG Tablet PO SCH (10:00)
[2017-08-10] MEDS ORDERED: ECOTRIN 81 MG PO SCH (10:00)
[2017-08-10] MEDS ORDERED: Zestril 10 MG PO SCH (10:00)
[2017-08-10] MEDS ORDERED: Ms Contin 15 MG PO SCH (10:00)
[2017-08-10] MEDS ORDERED: NON-FORMULARY ITEM (Omeprazole 20 Mg [Prilosec 20 Mg] 20 MG) PO SCH (10:00)
[2017-08-10] MEDS ORDERED: NORVASC 5 MG PO SCH (10:00)
[2017-08-10] MEDS ORDERED: EFFEXOR 37.5 MG PO SCH (10:00)
[2017-08-10] MEDS ORDERED: NON-FORMULARY ITEM (Venlafaxine Hcl [Effexor] 75 MG) PO SCH (10:00)
[2017-08-10] MEDS ORDERED: SYNTHROID 25 MCG PO SCH (10:00)
[2017-08-10] MEDS ORDERED: MORPHINE SULFATE 15 MG PO SCH (10:00)
[2017-08-10] MEDS ORDERED: Lopressor 25MG Tab PO SCH ×2 (10:00)
--- NOTE | 2017-08-10 14:06 | SSS ---
DISCHARGE DIAGNOSES: 1) CHEST PAIN. 2) VOMITING. 3) NARCOTICS WITHDRAWAL. HISTORY: The patient is a 61 year-old white male patient with a long history of back pain. He has been treated with morphine for quite some time and has been stable on this medication. However, he has been seen recently at the [facility] in [place] and they have decided they are going to wean him down off of his medication. He has been at 60 mg twice a day. They took him down to 15 mg twice a day and also decreased his Vicodin. The patient began having withdrawal symptoms with nausea and vomiting. He began also having chest pain and that is what brought him to the emergency room. The patient was subsequently admitted to the hospital to rule out myocardial infarction. PAST MEDICAL HISTORY: Again significant for the chronic back derangement. He also has history of myocardial infarction. He previously had acute renal failure. He has hypertension, gastroesophageal reflux disease. HOME MEDICATIONS: Currently include amlodipine 5 mg a day, aspirin 81 mg a day, cyclobenzaprine 10 mg t.i.d., Vicodin 10/325 mg every four hours PRN, Synthroid 25 mcg daily, lisinopril 10 mg daily, morphine currently at 15 mg b.i.d. but had been 60. Prilosec 20 mg a day, Effexor 75 mg a day, metoprolol 25 mg b.i.d. ALLERGIES: TORADOL, ATIVAN, NUBAIN, GABAPENTIN. PHYSICAL EXAMINATION: Revealed a well-nourished, well-developed 61 year-old white male patient who reports he feels much better. He is sitting up in bed eating his breakfast. His vital signs most recently showed a temperature of 98.0F, pulse 48 at rest, respiratory rate 12, blood pressure 127/66. Saturation 94% on room air. HEENT: Normocephalic, atraumatic. Pupils equal round reactive to light. Extraocular movements intact. Oropharynx is pink and moist. NECK: Supple without lymphadenopathy, thyromegaly or JVD. CHEST: Clear to auscultation with good air movement bilaterally. HEART: Regular rate and rhythm without murmurs, rubs or gallops. Somewhat bradycardic. ABDOMEN: Soft, nontender, nondistended without hepatosplenomegaly or masses. EXTREMITIES: Without clubbing, cyanosis or edema. NEUROLOGIC: The patient is alert and oriented x3. LAB DATA AND TESTS: Revealed troponins all less than 0.017. Lipid panel showed a total cholesterol of 192 and LDL 125 and HDL 33. Lactic acid 1.4. Urine drug screen was positive for opiates but otherwise negative. UA was essentially normal. His white blood cell count 12,300, hemoglobin 13.7, PLT 272,000. Nonfasting sugar 144, BUN 12, creatinine 1.22. Electrolytes and liver enzymes were normal. Lipase 64, magnesium 1.8. International normalized ratio 0.99. EKG showed essentially nonspecific ST-T wave changes in the lateral lead. No acute changes otherwise were noted. ASSESSMENT: A patient with nausea, vomiting and diarrhea due to withdrawal from narcotic medication. He reports that he does have medicine at home presently. He is feeling much better. He did also have chest pain. He did also have chest pain with history of previous myocardial infarction. He has now ruled out for myocardial infarction and is feeling much better and essentially felt to be ready for discharge home at this time. He will follow up at the [facility] for his usual care.
== END 2017-08-10 10:50 | disposition home or self-care (01) ==
LOC: ED 01:12 → MED SURG 03:21
PROVIDERS: ADMIT Family Medicine; ATTEND Family Medicine
DX: R07.9 Chest pain, unspecified (principal); F15.93 Other stimulant use, unspecified with withdrawal; I10 Essential (primary) hypertension; I25.2 Old myocardial infarction; K21.9 Gastro-esophageal reflux disease without esophagitis; Z79.899 Other long term (current) drug therapy
CPT/HCPCS: 36000; 36415; 71010; 80053; 80061; 80307; 81000; 83605; 83690; 83721; 83735; 84484; 85025; 85610; 85730; 93005; 93268; 99285; G0378; J2270; J3410; A9270-GY

== ENCOUNTER 2017-09-30 19:19 | Emergency (ER) | payer MEDICARE ==
[2017-09-30] MEDS ORDERED: DUONEB 0.5-3 MG/3 ml Neb IH ONE ×2 (19:52→20:12)
[2017-09-30] MEDS ORDERED: Sodium Chloride 0.9% 1000 ML 1,000 ML IV STA (19:52)
--- NOTE | 2017-09-30 19:52 | ERPHSYRPT ---
- History of Present Illness Time Seen by Provider: 09/30/17 19:40 Source: patient Exam Limitations: no limitations Patient Subjective Stated Complaint: pt c/o cough and headache off and on for 3 weeks, reports relative living with him has tested positive for influenza A Triage Nursing Assessment: pt is aox3, pupils perrl, pt is afebrile, resps easy and non labored slight inspiratory and expiratory wheezes heard to the left posterior lung, pain with inspiration, dry productive cough, radial pulses strong and equal, skin is pink warm dry Physician History: 61 y/o male with history of COPD comes to the ER with complaints of fever, shortness of breath, productive cough, wheezing and weakness for the past week. His grandchild just tested positive for Influenza A on Wednesday. has been giving him neb treatments with minimal relief. Pt has also been using nyquil with no relief. Pt denies any chest pain, dizziness or palpitations. Timing/Duration: day(s) Cough Quality/Degree: moderate Possible Cause: occasional episodes Modifying Factors: Improves With: nothing Associated Symptoms: fever, cough, headache Allergies/Adverse Reactions: ketorolac tromethamine [From Toradol] Allergy (Mild, Verified 09/30/17 19:35) Swelling lorazepam [From Ativan] Allergy (Mild, Verified 09/30/17 19:35) nalbuphine HCl [From Nubain] Allergy (Mild, Verified 09/30/17 19:35) Swelling gabapentin Allergy (Verified 09/30/17 19:35) Home Medications: Amlodipine Besylate 5 mg PO DAILY 03/16/16 [History] Aspirin 81 mg PO DAILY 03/16/16 [History] Cyclobenzaprine HCl 10 mg [Cyclobenzaprine 10 MG] 10 mg PO TID 03/16/16 [ History] Levothyroxine Sodium [Synthroid] 25 mcg PO DAILY 03/16/16 [History] Lisinopril 10 mg [Zestril 10 MG] 10 mg PO DAILY 03/16/16 [History] Omeprazole 20 MG [Prilosec 20 mg] 20 mg PO DAILY 03/16/16 [History] Venlafaxine HCl [Effexor] 75 mg PO DAILY 03/16/16 [History] Diphenhydramine HCl 25 mg [Benadryl 25 mg Capsule] 100 mg PO HS PRN PRN [History] Metoprolol Tartrate 25 mg [Lopressor 25MG Tab] 50 mg PO BID 08/10/17 [ History] Hx Tetanus, Diphtheria Vaccination/Date Given: Yes Hx Influenza Vaccination/Date Given: Yes Hx Pneumococcal Vaccination/Date Given: No Immunizations Up to Date: Yes - Review of Systems Constitutional: Fever, Chills, Weakness Eyes: No Symptoms Ears, Nose, & Throat: No Symptoms Respiratory: Cough, Dyspnea on Exertion (RANGEL), No Dyspnea Cardiac: No Chest Pain, No Edema, No Syncope Abdominal/Gastrointestinal: No Abdominal Pain, No Nausea, No Vomiting, No Diarrhea Genitourinary Symptoms: No Dysuria Musculoskeletal: Myalgias, No Back Pain, No Neck Pain Skin: No Rash Neurological: No Dizziness, No Focal Weakness, No Sensory Changes Psychological: No Symptoms Endocrine: No Symptoms All Other Systems: Reviewed and Negative - Past Medical History Pertinent Past Medical History: Yes Neurological History: Migraines ENT History: No Pertinent History Cardiac History: Hypertension, Myocardial Infarction ([place]) Respiratory History: Asthma, COPD Endocrine Medical History: No Pertinent History Musculoskeletal History: Arthritis, Other GI Medical History: GERD, Other History: Other Psycho-Social History: No Pertinent History Male Reproductive Disorders: No Pertinent History Other Medical History: HEART BURN. Hx: ACUTE RENAL FAILURE. Chronic pain syndrome- back disks. Skin cancer on nose - Past Surgical History Past Surgical History: Yes Neuro Surgical History: No Pertinent History Cardiac: Cardiac Catheterization Respiratory: No Pertinent History Gastrointestinal: No Pertinent History Genitourinary: No Pertinent History Musculoskeletal: Orthopedic Surgery Male Surgical History: No Pertinent History Other Surgical History: neck, back lucía shoulders, lower back - Social History Smoking Status: Current every day smoker How long have you smoked: 40 Exposure to second hand smoke: Yes Drug Use: none Patient Lives Alone: No - Nursing Vital Signs Nursing Vital Signs: Initial Vital Signs Temperature 97.6 F 09/30/17 19:27 Pulse Rate 65 09/30/17 19:27 Respiratory Rate 20 09/30/17 19:27 Blood Pressure 144/82 09/30/17 19:27 O2 Sat by Pulse Oximetry 92 L 09/30/17 19:27 Pain Scale Pain Intensity 4 - Physical Exam General Appearance: mild distress, alert Eye Exam: PERRL/EOMI, eyes nml inspection Ears, Nose, Throat Exam: normal ENT inspection, TMs normal, pharynx normal, moist mucous membranes Neck Exam: normal inspection, non-tender, supple, full range of motion Respiratory Exam: wheezing, No respiratory distress Cardiovascular Exam: regular rate/rhythm, normal heart sounds Gastrointestinal/Abdomen Exam: soft, No tenderness Back Exam: normal inspection, No CVA tenderness, No vertebral tenderness Extremity Exam: normal inspection, normal range of motion Neurologic Exam: alert, oriented x 3, cooperative, normal mood/affect, sensation nml, No motor deficits Skin Exam: normal color, warm, dry, No rash Lymphatic Exam: No adenopathy SpO2: 92 Oxygen Delivery: Room Air - Course Nursing assessment & vital signs reviewed: Yes Ordered Tests: Active Orders 24 hr Category Date Time Status Windows Laptop Technician STAT Care 09/30/17 19:53 Active IV Insertion STAT Care 09/30/17 19:38 Active CHEST 2 VIEWS (PA AND LAT) Stat Exams 09/30/17 19:53 Taken BLOOD CULTURE Stat Lab 09/30/17 20:25 Received CBC W DIFF Stat Lab 09/30/17 20:15 Completed CMP Stat Lab 09/30/17 20:15 Completed Respiratory Nebulizer STAT RT 09/30/17 19:53 Completed Medication Summary Discontinued Medications Generic Name Dose Route Start Last Admin Trade Name Freq PRN Reason Stop Dose Admin Albuterol/Ipratropium 3 ml 09/30/17 19:52 09/30/17 20:17 Duoneb 0.5-3 Mg/3 Ml Neb IH 09/30/17 19:53 3 ml STAT ONE Administration Albuterol/Ipratropium Confirm 09/30/17 20:12 Duoneb 0.5-3 Mg/3 Ml Neb Administered 09/30/17 20:13 Dose 3 ml IH .STK-MED ONE Sodium Chloride 1,000 mls @ 999 mls/hr 09/30/17 19:52 09/30/17 20:10 Sodium Chloride 0.9% 1000 Ml IV 09/30/17 20:52 999 mls/hr .Q1H1M STA Administration Sodium Chloride Confirm 09/30/17 20:04 Sodium Chloride 0.9% 1000 Ml Administered 09/30/17 20:05 Dose 1,000 mls @ ud .ROUTE .STK-MED ONE Morphine Sulfate 4 mg 09/30/17 20:40 09/30/17 20:46 Morphine Sulfate 4 Mg Inj IV 09/30/17 20:41 4 mg STAT ONE Administration Morphine Sulfate Confirm 09/30/17 20:45 Morphine Sulfate 4 Mg Inj Administered 09/30/17 20:46 Dose 4 mg .ROUTE .STK-MED ONE Oseltamivir Phosphate 75 mg 09/30/17 22:19 09/30/17 22:28 Tamiflu 75mg Capsule PO 09/30/17 22:20 75 mg STAT ONE Administration Oseltamivir Phosphate Confirm 09/30/17 22:26 Tamiflu 75mg Capsule Administered 09/30/17 22:27 Dose 75 mg PO .STK-MED ONE Lab/Rad Data: Laboratory Result Diagrams 09/30/17 20:15 09/30/17 20:15 Laboratory Results 09/30/17 09/30/17 09/30/17 Range/Units 20:55 20:15 20:15 WBC 13.9 H (4.0-10.5) K/mm3 RBC 5.40 (4.1-5.6) M/mm3 Hgb 16.0 (12.5-18.0) gm/dl Hct 48.2 (42-50) % MCV 89.3 (78-100) fl MCH 29.6 (26-32) pg MCHC 33.2 (32-36) g/dl RDW 14.7 H (11.5-14.0) % Plt Count 292 (150-450) K/mm3 MPV 10.8 H (6-9.5) fl Gran % 75.1 H (36.0-66.0) % Lymphocytes % 15.2 L (24.0-44.0) % Monocytes % 9.3 (0.0-12.0) % Eosinophils % 0.1 (0.00-5.0) % Basophils % 0.3 (0.0-0.4) % Basophils # 0.04 (0-0.4) Sodium 133 L (136-145) mEq/L Potassium 4.4 (3.5-5.1) mEq/L Chloride 97 L (98-107) mEq/L Carbon Dioxide 26.4 (21-32) mEq/L Anion Gap 13.7 (5-15) MEQ/L BUN 13 (9-20) mg/dL Creatinine 1.35 H (0.55-1.30) mg/dl Estimated GFR 57 ML/MIN Glucose 110 (70-110) MG/DL Calcium 9.5 (8.5-10.1) mg/dL Total Bilirubin 0.40 (0.2-1.0) mg/dL AST 32 (15-37) U/L ALT 26 (12-78) U/L Alkaline Phosphatase 109 (46-116) U/L Serum Total Protein 8.3 H (6.4-8.2) gm/dL Albumin 3.7 (3.4-5.0) g/dL Influenza Type A Ag POSITIVE (NEGATIVE) Influenza Type B Ag NEGATIVE (NEGATIVE) RSV (PCR) NEGATIVE (Negative) - Progress Progress: improved Progress Note: 09/30/17 22:35 Pt feels better after receiving NS fluids and a dose of morphine 4mg IV X 1 dose. Pt has a white count of 13,000. The CXR does not show an infiltrate but the Influenza A is positive. Pt will be treated with 5 days of tamiflu. - Departure Time of Disposition: 22:36 Departure Disposition: Home Clinical Impression: Influenza A Condition: Stable Critical Care Time: No Referrals: MYNOR SCHULTE [Primary Care Provider] - Instructions: Influenza -- Adult Additional Instructions: Follow up with your primary care doctor in the next few days. Prescriptions: Oseltamivir 75 mg [Tamiflu 75MG Capsule] 75 mg PO BID #9 cap
[2017-09-30] MEDS ORDERED: Sodium Chloride 0.9% 1000 ML 1,000 ML ONE (20:04)
[2017-09-30] MEDS ORDERED: MORPHINE SULFATE 4 MG INJ IV ONE (20:40)
[2017-09-30] MEDS ORDERED: MORPHINE SULFATE 4 MG INJ ONE (20:45)
[2017-09-30 20:57] LABS: BASOPHIL % 0.3 % (0.0-0.4); Eosinophil % 0.1 % (0.00-5.0); Granulocytes % 75.1 % (36.0-66.0); Lymphocytes % 15.2 % (24.0-44.0); Mean Cell Volume 89.3 fl (78-100); Mean Corpuscular Hemoglobin 29.6 pg (26-32); Mean Platelet Volume 10.8 fl (6-9.5); Monocytes % 9.3 % (0.0-12.0); Platelet Count 292 K/mm3 (150-450); Red Cell Distribution Width 14.7 % (11.5-14.0); White Blood Count 13.9 K/mm3 (4.0-10.5)
[2017-09-30 21:26] LABS: ALBUMIN 3.7 g/dL (3.4-5.0); ANION GAP 13.7 MEQ/L (5-15); BILIRUBIN,TOTAL 0.4 mg/dL (0.2-1.0); Carbon Dioxide 26.4 mEq/L (21-32); Potassium 4.4 mEq/L (3.5-5.1); Total Protein 8.3 gm/dL (6.4-8.2)
[2017-09-30] MEDS ORDERED: Tamiflu 75MG Capsule PO ONE ×2 (22:19→22:26)
[2017-09-30 22:42] VITALS: BP 141/75; PULSE 62; O2SAT 95
--- NOTE | 2017-10-01 08:41 | XRAY ---
Indication: Cough. Comparison: August 10, 2017. PA/lateral chest hyperinflated and clear. Heart is not enlarged. Bony thorax intact with minimal degenerative changes and lower cervical fusion surgery. Impression: Nonacute hyperinflated chest with chronic features.
== END 2017-09-30 22:45 | disposition home or self-care (01) ==
LOC: ED 19:19
DX: J11.1 Influenza due to unidentified influenza virus with other respiratory manifestations (principal); R05 Cough; R51 Headache; J44.9 Chronic obstructive pulmonary disease, unspecified; R50.9 Fever, unspecified; Z79.899 Other long term (current) drug therapy; I10 Essential (primary) hypertension; I25.2 Old myocardial infarction
CPT/HCPCS: 36000; 36415; 71020; 80053; 85025; 87040; 87631; 93041; 94640; 96360; 96374; 99284; J2270; A9270-GY

== ENCOUNTER 2018-03-10 14:15 | Emergency (ER) | payer MEDICARE, SELFPAY ==
[2018-03-10] MEDS ORDERED: Zofran 4 MG/2 ML VIAL IV ONE (14:41)
[2018-03-10] MEDS ORDERED: MORPHINE SULFATE 10 MG/ML IV ONE (14:41)
[2018-03-10] MEDS ORDERED: BENADRYL 50 MG/ML IV ONE (14:41)
[2018-03-10] MEDS ORDERED: Sodium Chloride 0.9% 1000 ML 1,000 ML IV SCH (14:45)
--- NOTE | 2018-03-10 14:48 | ERPHSYRPT ---
- History of Present Illness Time Seen by Provider: 03/10/18 14:30 Historian: patient Exam Limitations: clinical condition Patient Subjective Stated Complaint: pt here for flank and lower abd pain for 3 days with nausea Triage Nursing Assessment: pt alert, resp easy, skin w/d/p. walked in [facility] back and moaning.denies any difficulty voiding, Physician History: PATIENT WITH A HISTORY OF CHRONIC LOW BACK PAIN, COMPLAINS OF ACUTE ONSET OF RIGHT FLANK PAIN FOR 3 DAYS, PROGRESSIVELY WORSE, RADIATES INTO LOWER ABDOMEN. DENIES URINARY SYMPTOMS, FEVER, NAUSEA, EMESIS OR URINARY SYMPTOMS. Timing/Duration: day(s) Activities at Onset: none Quality: stabbing, throbbing Abdominal Pain Onset Location: flank Pain Radiation: RLQ Severity of Pain-Max: severe Severity of Pain-Current: severe Modifying Factors: Improves With: movement Associated Symptoms: denies symptoms Previous symptoms: same symptoms as today Allergies/Adverse Reactions: ketorolac tromethamine [From Toradol] Allergy (Mild, Verified 03/10/18 14:26) Swelling lorazepam [From Ativan] Allergy (Mild, Verified 03/10/18 14:26) nalbuphine HCl [From Nubain] Allergy (Mild, Verified 03/10/18 14:26) Swelling Home Medications: Amlodipine Besylate 5 mg PO DAILY 03/16/16 [History] Aspirin 81 mg PO DAILY 03/16/16 [History] Cyclobenzaprine HCl 10 mg [Cyclobenzaprine 10 MG] 10 mg PO TID 03/16/16 [ History] Levothyroxine Sodium [Synthroid] 25 mcg PO DAILY 03/16/16 [History] Lisinopril 10 mg [Zestril 10 MG] 20 mg PO DAILY 03/16/16 [History] Omeprazole 20 MG [Prilosec 20 mg] 20 mg PO DAILY 03/16/16 [History] Metoprolol Tartrate 25 mg [Lopressor 25MG Tab] 50 mg PO BID 08/10/17 [ History] Morphine Sulfate Ir 15 mg [Msir 15 mg] 15 mg DAILY 03/10/18 [History] Hx Tetanus, Diphtheria Vaccination/Date Given: Yes Hx Influenza Vaccination/Date Given: Yes Hx Pneumococcal Vaccination/Date Given: No Immunizations Up to Date: Yes - Review of Systems Constitutional: No Fever, No Chills Eyes: No Symptoms Ears, Nose, & Throat: No Symptoms Respiratory: No Cough, No Dyspnea Cardiac: No Chest Pain, No Edema, No Syncope Abdominal/Gastrointestinal: Abdominal Pain, No Nausea, No Vomiting, No Diarrhea Genitourinary Symptoms: Flank Pain, No Dysuria Musculoskeletal: No Symptoms, No Back Pain, No Neck Pain Skin: No Rash Neurological: No Dizziness, No Focal Weakness, No Sensory Changes Psychological: No Symptoms Endocrine: No Symptoms All Other Systems: Reviewed and Negative - Past Medical History Pertinent Past Medical History: Yes Neurological History: Migraines ENT History: No Pertinent History Cardiac History: Hypertension, Myocardial Infarction ([place]) Respiratory History: Asthma, COPD Endocrine Medical History: No Pertinent History Musculoskeletal History: Arthritis, Other GI Medical History: GERD, Other History: Other Psycho-Social History: No Pertinent History Male Reproductive Disorders: No Pertinent History Other Medical History: HEART BURN. Hx: ACUTE RENAL FAILURE. Chronic pain syndrome- back disks. Skin cancer on nose - Past Surgical History Past Surgical History: Yes Neuro Surgical History: No Pertinent History Cardiac: Cardiac Catheterization Respiratory: No Pertinent History Gastrointestinal: No Pertinent History Genitourinary: No Pertinent History Musculoskeletal: Orthopedic Surgery Male Surgical History: No Pertinent History Other Surgical History: neck, back lucía shoulders, lower back - Social History Smoking Status: Current every day smoker How long have you smoked: 40 Exposure to second hand smoke: Yes Drug Use: none Patient Lives Alone: No - Nursing Vital Signs Nursing Vital Signs: Initial Vital Signs O2 Sat by Pulse Oximetry 98 03/10/18 15:32 Pain Scale Pain Intensity 9 - Physical Exam General Appearance: no apparent distress, alert Eye Exam: PERRL/EOMI, eyes nml inspection Ears, Nose, Throat Exam: normal ENT inspection, pharynx normal, moist mucous membranes Neck Exam: normal inspection, non-tender, supple, full range of motion Respiratory Exam: normal breath sounds, lungs clear, No respiratory distress Cardiovascular Exam: regular rate/rhythm, normal heart sounds Gastrointestinal/Abdomen Exam: soft, No tenderness, No mass Back Exam: normal inspection, normal range of motion, CVA tenderness, No vertebral tenderness Extremity Exam: normal inspection, normal range of motion, pelvis stable Neurologic Exam: alert, oriented x 3, cooperative, normal mood/affect, nml cerebellar function, sensation nml, No motor deficits Skin Exam: normal color, warm, dry SpO2 Interpretation: normal SpO2: 98 Oxygen Delivery: Room Air - CT Exams Abdomen/Pelvis CT Interpretation: Discussed w/radiologist (APPENDIX APEARS NORMAL, THERE IS NO EVIDENCE OF RENAL/URETERAL CALCULI, HYDRONEPHROSIS OR OTHER EVIDENCE OF OBSTRUCTIVE UROPATHY) Ordered Tests: Active Orders 24 hr Category Date Time Status Clean Catch Urine Specimen STAT Care 03/10/18 14:41 Active IV Insertion STAT Care 03/10/18 14:41 Active ABDOMEN AND PELVIS W/0 CONTRAS [CT] Stat Exams 03/10/18 14:42 Completed BMP Stat Lab 03/10/18 15:00 Completed CBC W DIFF Stat Lab 03/10/18 15:00 Completed UA W/RFX UR CULTURE Stat Lab 03/10/18 14:42 Uncollected Urine Triage Profile Stat Lab 03/10/18 14:42 Uncollected Medication Summary Generic Name Dose Route Start Last Admin Trade Name Freq PRN Reason Stop Dose Admin Sodium Chloride 1,000 mls @ 500 mls/hr 03/10/18 14:45 03/10/18 14:55 Sodium Chloride 0.9% 1000 Ml IV 04/09/18 14:44 500 mls/hr .Q2H NII Administration Discontinued Medications Generic Name Dose Route Start Last Admin Trade Name Freq PRN Reason Stop Dose Admin Diphenhydramine HCl 25 mg 03/10/18 14:41 03/10/18 14:54 Benadryl 50 Mg/Ml IV 03/10/18 14:42 25 mg STAT ONE Administration Diphenhydramine HCl Confirm 03/10/18 14:52 Benadryl 50 Mg/Ml Administered 03/10/18 14:53 Dose 50 mg .ROUTE .STK-MED ONE Morphine Sulfate 8 mg 03/10/18 14:41 03/10/18 14:55 Morphine Sulfate 10 Mg/Ml IV 03/10/18 14:42 8 mg STAT ONE Administration Morphine Sulfate Confirm 03/10/18 14:53 Morphine Sulfate 10 Mg/Ml Administered 03/10/18 14:54 Dose 10 mg .ROUTE .STK-MED ONE Ondansetron HCl 4 mg 03/10/18 14:41 03/10/18 14:54 Zofran 4 Mg/2 Ml Vial IV 03/10/18 14:42 4 mg STAT ONE Administration Ondansetron HCl Confirm 03/10/18 14:52 Zofran 4 Mg/2 Ml Vial Administered 03/10/18 14:53 Dose 4 mg .ROUTE .STK-MED ONE Lab/Rad Data: Laboratory Result Diagrams 03/10/18 15:00 03/10/18 15:00 Laboratory Results 03/10/18 03/10/18 Range/Units 15:00 15:00 WBC 10.6 H (4.0-10.5) K/mm3 RBC 4.42 (4.1-5.6) M/mm3 Hgb 13.6 (12.5-18.0) gm/dl Hct 39.6 L (42-50) % MCV 89.6 (78-100) fl MCH 30.8 (26-32) pg MCHC 34.3 (32-36) g/dl RDW 13.1 (11.5-14.0) % Plt Count 264 (150-450) K/mm3 MPV 10.5 H (6-9.5) fl Gran % 69.5 H (36.0-66.0) % Eos # (Auto) 0.22 (0-0.5) Absolute Lymphs (auto) 2.05 (1.0-4.6) Absolute Monos (auto) 0.91 (0.0-1.3) Lymphocytes % 19.3 L (24.0-44.0) % Monocytes % 8.6 (0.0-12.0) % Eosinophils % 2.1 (0.00-5.0) % Basophils % 0.5 (0.0-0.4) % Absolute Granulocytes 7.41 H (1.4-6.9) Basophils # 0.05 (0-0.4) Sodium 137 (137-145) mmol/L Potassium 3.7 (3.5-5.1) mmol/L Chloride 102 (98-107) mmol/L Carbon Dioxide 23 (22-30) mmol/L Anion Gap 16.7 H (5-15) MEQ/L BUN 11 (9-20) mg/dL Creatinine 1.99 H (0.66-1.25) mg/dL Estimated GFR 36.4 ML/MIN Glucose 120 H (74-106) mg/dL Calcium 9.6 (8.4-10.2) mg/dL - Progress Progress Note: 03/10/18 14:47 IV NORMAL SALINE 500ML/HR, ZOFRAN 4MG, BENADRYL 25MG, MORPHINE 8MG IV Counseled pt/family regarding: lab results, diagnosis, need for follow-up, rad results - Departure Time of Disposition: 17:10 Departure Disposition: Home Clinical Impression: CHRONIC BACK PAIN Condition: Stable Critical Care Time: No Referrals: MYNOR SCHULTE [Primary Care Provider] - Instructions: Acute Abdomen (Belly Pain), Adult (DC) Additional Instructions: CONTINUE ALL CURRENT MEDICATIONS DIRECTED. FLOMAX 0.4MG AT BEDTIME FOR 7 DAYS. FOLLOWUP WITH YOUR PRIMARY CARE PROVIDER FOR EVALUATION AND TREATMENT. Prescriptions: Tamsulosin HCl 0.4 mg [Flomax 0.4 MG] 0.4 mg PO QHS #7 cap
[2018-03-10] MEDS ORDERED: Zofran 4 MG/2 ML VIAL ONE (14:52)
[2018-03-10] MEDS ORDERED: BENADRYL 50 MG/ML ONE (14:52)
[2018-03-10] MEDS ORDERED: Sodium Chloride 0.9% 1000 ML 1,000 ML ONE (14:53)
[2018-03-10] MEDS ORDERED: MORPHINE SULFATE 10 MG/ML ONE (14:53)
[2018-03-10 15:30] LABS: ANION GAP 16.7 MEQ/L (5-15); Calcium 9.6 mg/dL (8.4-10.2); Creatinine 1 1.99 mg/dL (0.66-1.25); Potassium 3.7 mmol/L (3.5-5.1)
[2018-03-10 15:47] LABS: BASOPHIL % 0.5 % (0.0-0.4); Basophil (Absolute #) 0.05 (0-0.4); Eosinophil % 2.1 % (0.00-5.0); Eosinophil (Absolute #) 0.22 (0-0.5); Granulocyte Absolute (ANC) 7.41 (1.4-6.9); Granulocytes % 69.5 % (36.0-66.0); Hematocrit 39.6 % (42-50); Hemoglobin 13.6 gm/dl (12.5-18.0); Lymphocyte (Absolute #) 2.05 (1.0-4.6); Lymphocytes % 19.3 % (24.0-44.0); Mean Cell Volume 89.6 fl (78-100); Mean Corpuscular Hemoglobin 30.8 pg (26-32); Mean Corpuscular Hgb Concent. 34.3 g/dl (32-36); Mean Platelet Volume 10.5 fl (6-9.5); Monocyte (Absolute #) 0.91 (0.0-1.3); Monocytes % 8.6 % (0.0-12.0); Platelet Count 264 K/mm3 (150-450); Red Blood Count 4.42 M/mm3 (4.1-5.6); Red Cell Distribution Width 13.1 % (11.5-14.0); White Blood Count 10.6 K/mm3 (4.0-10.5)
--- NOTE | 2018-03-10 16:20 | XRAY ---
Exam: CT of the abdomen and pelvis without IV contrast. CTDI: 22.31 Comparison: CT of the abdomen and pelvis without IV contrast from 06/13/2017. Indication: History of chronic back pain/bilateral flank pain, right lower quadrant abdominal pain, history of kidney failure. Technique: Non-IV contrast axial images were obtained through the abdomen and pelvis. Reconstructed coronal and sagittal images were created and reviewed. Findings: The lung bases reveal small granulomatous calcifications within the left infrahilar projection. A calcified pleural plaque is again noted at the posterior medial aspect of the left hemidiaphragm representing no change. Minimal compression atelectatic changes are seen adjacent to the posterior right pleural surface. Otherwise, the visualized lung bases appear essentially clear. There appears to be some fluid within the distal thoracic esophagus. Consider gird. Assessment of the solid organs is limited without the use of IV contrast. The liver appears unremarkable. No biliary duct distention is seen. The gallbladder is distended and reveals no dense calcifications within it. The spleen appears small and is remarkable for a punctate calcified granuloma. Abundant fluid/secretions are seen within the stomach lumen. The pancreas and adrenal glands appear unremarkable. There is abundant intraperitoneal fat. The kidneys appear of unremarkable shape, but are somewhat small. The right kidney measures 8.9 cm in length and the left kidney measures 9.0 cm in length on coronal image #83. No renal calculi, definite renal mass, or hydronephrosis is seen. The ureters are of normal diameter bilaterally and reveal no ureterolith. Mild atherosclerotic vascular calcification is seen within the abdominal aorta and iliac arteries. No abdominal aortic aneurysm or abnormal retroperitoneal lymphadenopathy is seen. There is no free intraperitoneal air. Minimal protrusion of intra-abdominal fat into the umbilicus is seen on axial image #107. Otherwise, the anterior abdominal wall appears intact. The appendix appears unremarkable within the right lower quadrant. Some stool is seen within the ascending colon and cecum. No bowel obstruction or definite bowel wall thickening is seen. Abundant intraperitoneal fat is seen. The pelvis reveals no enlarged lymph nodes. There is no free intraperitoneal fluid. The urinary bladder appears unremarkable. Some calcified phleboliths are seen within the lower pelvis bilaterally. The seminal vesicles appear small. The prostate gland appears unremarkable. Small bilateral fat-containing inguinal hernias are seen, a bit larger on the left than right. This is unchanged. The skeleton reveals no acute fracture or aggressive bone lesion. I again see evidence of right L5 hemilaminectomy. Mild degenerative disc disease is seen at L5-S1, and to a lesser extent,, at L4-L5. Impression: 1. The appendix appears normal within the right lower quadrant representing no change. 2. The kidneys appear borderline decreased in size with the right kidney measuring 8.9 cm in length and the left kidney measured 9.0 cm in length. No renal/ureteral calculi, hydronephrosis, or other evidence of obstructive uropathy is seen. 3. Abundant fluid/secretions are seen within the stomach lumen. I also note fluid within the distal thoracic esophageal lumen. Consider gird. 4. No other acute process is seen within the abdomen or pelvis. Some other incidental findings are seen, as discussed above.
[2018-03-10 17:16] VITALS: BP 122/74; PULSE 74; O2SAT 96
== END 2018-03-10 17:17 | disposition home or self-care (01) ==
LOC: ED 14:15
DX: M54.9 Dorsalgia, unspecified (principal); G89.4 Chronic pain syndrome; J44.9 Chronic obstructive pulmonary disease, unspecified; J45.909 Unspecified asthma, uncomplicated; M19.90 Unspecified osteoarthritis, unspecified site; K21.9 Gastro-esophageal reflux disease without esophagitis; I10 Essential (primary) hypertension; Z79.899 Other long term (current) drug therapy
CPT/HCPCS: 36000; 36415; 74176; 80048; 85025; 96360; 96374; 96375; 99284; J1200; J2270; J2405

== ENCOUNTER 2018-03-12 07:47 | Emergency (ER) | payer MEDICARE ==
[2018-03-12] MEDS ORDERED: Sodium Chloride 0.9% 1000 ML 1,000 ML ONE ×3 (08:01→10:59)
[2018-03-12] MEDS ORDERED: BABY ASPIRIN 81 MG CHEW PO ONE (08:10)
--- NOTE | 2018-03-12 08:20 | ERPHSYRPT ---
- History of Present Illness Time Seen by Provider: 03/12/18 08:02 Historian: patient Exam Limitations: clinical condition Patient Subjective Stated Complaint: Pt states "My chest has been hurting for the past 2 to 3 days. This morning it really got to hurting bad." Triage Nursing Assessment: Pt alert and oriented X 3, skin pwd Pt ambulates with an upright steady gait, able to speak in clear full sentences. PT grunting and groaning. unable to sit still. pt will occasionlly grab his chest. Physician History: PATIENT WITH A HISTORY OF COPD, RENAL INSUFFICIENCY, HYPERTENSION, CORONARY ARTERY DISEASE, HISTORY OF MYOCARDIAL INFARCTION COMPLAINS OF SUBSTERNAL CHEST PAINS X 2 DAYS. TOOK NITROGLYCERIN SUBLINGUAL X 2 WITH MODERATE RELIEF. DENIES RADIATION OF PAIN, DYSPNEA, DIAPHORESIS OR PALPITATIONS. PATIENT ALSO COMPLAINS OF SEVERE RIGHT UPPER ABDOMINAL PAIN WITH ABDOMINAL DISTENTION, PAIN RADIATES TO BACK. Timing/Duration: day(s) Activities at Onset: none Quality: pressure, tightness Location: substernal Chest Pain Radiation: no radiation Severity of Pain-Max: moderate Severity of Pain-Current: moderate Modifying Factors: Improves With: nitroglycerin Associated Symptoms: denies symptoms Prior Chest Pain/Cardiac Workup: cardiac cath Nitro Today/Relief: 0.4 mg x 2, provided at home Aspirin Treatment Today: 81 mg x 4, provided by ED Allergies/Adverse Reactions: ketorolac tromethamine [From Toradol] Allergy (Mild, Verified 03/10/18 14:26) Swelling lorazepam [From Ativan] Allergy (Mild, Verified 03/10/18 14:26) nalbuphine HCl [From Nubain] Allergy (Mild, Verified 03/10/18 14:26) Swelling Home Medications: Amlodipine Besylate 5 mg PO DAILY 03/16/16 [History] Aspirin 81 mg PO DAILY 03/16/16 [History] Cyclobenzaprine HCl 10 mg [Cyclobenzaprine 10 MG] 10 mg PO TID 03/16/16 [ History] Levothyroxine Sodium [Synthroid] 25 mcg PO DAILY 03/16/16 [History] Lisinopril 10 mg [Zestril 10 MG] 20 mg PO DAILY 03/16/16 [History] Omeprazole 20 MG [Prilosec 20 mg] 20 mg PO DAILY 03/16/16 [History] Metoprolol Tartrate 25 mg [Lopressor 25MG Tab] 50 mg PO BID 08/10/17 [ History] Morphine Sulfate Ir 15 mg [Msir 15 mg] 15 mg DAILY 03/10/18 [History] Hx Tetanus, Diphtheria Vaccination/Date Given: No Hx Influenza Vaccination/Date Given: Yes Hx Pneumococcal Vaccination/Date Given: Yes Immunizations Up to Date: Yes - Review of Systems Constitutional: No Fever, No Chills Eyes: No Symptoms Ears, Nose, & Throat: No Symptoms Respiratory: No Symptoms, No Cough, No Dyspnea Cardiac: Chest Pain, No Edema, No Syncope Abdominal/Gastrointestinal: Abdominal Pain, Other (DISTENTION), No Nausea, No Vomiting, No Diarrhea Genitourinary Symptoms: No Symptoms, No Dysuria Musculoskeletal: No Symptoms, No Back Pain, No Neck Pain Skin: No Rash Neurological: No Dizziness, No Focal Weakness, No Sensory Changes Psychological: No Symptoms Endocrine: No Symptoms All Other Systems: Reviewed and Negative - Past Medical History Pertinent Past Medical History: Yes Neurological History: Migraines ENT History: No Pertinent History Cardiac History: Hypertension, Myocardial Infarction ([place]) Respiratory History: Asthma, COPD Endocrine Medical History: No Pertinent History Musculoskeletal History: Arthritis, Other GI Medical History: GERD, Other History: Other Psycho-Social History: No Pertinent History Male Reproductive Disorders: No Pertinent History Other Medical History: HEART BURN. Hx: ACUTE RENAL FAILURE. Chronic pain syndrome- back disks. Skin cancer on nose - Past Surgical History Past Surgical History: Yes Neuro Surgical History: No Pertinent History Cardiac: Cardiac Catheterization Respiratory: No Pertinent History Gastrointestinal: No Pertinent History Genitourinary: No Pertinent History Musculoskeletal: Orthopedic Surgery Male Surgical History: No Pertinent History Other Surgical History: neck, back lucía shoulders, lower back - Social History Smoking Status: Current every day smoker How long have you smoked: years Exposure to second hand smoke: Yes Drug Use: none Patient Lives Alone: No - Nursing Vital Signs Nursing Vital Signs: Initial Vital Signs Temperature 99.3 F 03/12/18 07:53 Pulse Rate 100 H 03/12/18 07:53 Respiratory Rate 20 03/12/18 07:53 Blood Pressure 84/57 03/12/18 07:53 O2 Sat by Pulse Oximetry 92 L 03/12/18 07:53 Pain Scale Pain Intensity 0 - Physical Exam General Appearance: no apparent distress, alert Eye Exam: PERRL/EOMI, eyes nml inspection Ears, Nose, Throat Exam: normal ENT inspection, moist mucous membranes Neck Exam: normal inspection, non-tender, supple, full range of motion Respiratory Exam: normal breath sounds, lungs clear, No respiratory distress Cardiovascular Exam: regular rate/rhythm, normal heart sounds, tachycardia Gastrointestinal/Abdomen Exam: normal bowel sounds, tenderness (MARKED RIGHT UPPER QUAD, EPIASTRIC TENDERNESS WITH GUARDING, REBOUND TENDERNESS), rebound ( FIRM UPON PALPATION), other (MODERATE SUPRAPUBIC DISTENTION), No mass Back Exam: normal inspection, No CVA tenderness, No vertebral tenderness Extremity Exam: normal inspection, normal range of motion Neurologic Exam: alert, oriented x 3, cooperative, normal mood/affect, sensation nml, No motor deficits Skin Exam: normal color, warm, dry SpO2 Interpretation: borderline oxygenation SpO2: 92 Oxygen Delivery: Room Air - Course EKG Interpreted by Me: RATE, Sinus Rhythm, NORMAL AXIS - Radiology Exams Chest X-ray Interpretation: Interpreted by me, Negative, No Infiltrates (ELEVATION OF RIGHT HEMIDIAPHRAM) Ordered Tests: Active Orders 24 hr Category Date Time Status Engineering Aid STAT Care 03/12/18 08:11 Active Catheter-Cheshire Heller STAT Care 03/12/18 08:40 Active EKG-ER Only STAT Care 03/12/18 08:10 Active IV Insertion STAT Care 03/12/18 08:10 Active Oxygen-ED Only NASAL CANNULA 2 lpm Care 03/12/18 08:10 Active ABDOMEN AND PELVIS W/0 CONTRAS [CT] Stat Exams 03/12/18 08:50 Completed CHEST 1 VIEW (PORTABLE) Stat Exams 03/12/18 08:11 Completed AMYLASE Stat Lab 03/12/18 08:40 Completed BMP Stat Lab 03/12/18 13:30 Completed CBC W DIFF Stat Lab 03/12/18 08:10 Completed CMP Stat Lab 03/12/18 08:10 Completed CULTURE,URINE Stat Lab 03/12/18 08:55 Received D-DIMER QUANTITATION Stat Lab 03/12/18 08:10 Completed LIPASE Stat Lab 03/12/18 08:40 Completed NT PRO BNP Stat Lab 03/12/18 08:10 Completed PROTIME WITH INR Stat Lab 03/12/18 08:10 Completed TROPONIN Q3H Lab 03/12/18 08:10 Completed TROPONIN Q3H Lab 03/12/18 11:15 Completed TROPONIN Q3H Lab 03/12/18 13:30 Completed UA W/ MICROSCOPIC Stat Lab 03/12/18 08:55 Completed Respiratory Nebulizer STAT RT 03/12/18 10:55 Completed Medication Summary Discontinued Medications Generic Name Dose Route Start Last Admin Trade Name Abdullahiq PRN Reason Stop Dose Admin Albuterol/Ipratropium 3 ml 03/12/18 10:55 03/12/18 11:02 Duoneb 0.5-3 Mg/3 Ml Neb IH 03/12/18 10:56 3 ml STAT ONE Administration Albuterol/Ipratropium Confirm 03/12/18 11:00 Duoneb 0.5-3 Mg/3 Ml Neb Administered 03/12/18 11:01 Dose 3 ml IH .STK-MED ONE Aspirin 324 mg 03/12/18 08:10 03/12/18 08:32 Baby Aspirin 81 Mg Chew PO 03/12/18 08:11 Not Given STAT ONE Aspirin 243 mg 03/12/18 08:26 03/12/18 08:28 Ecotrin 81 Mg PO 03/12/18 08:27 243 mg STAT ONE Administration Diphenhydramine HCl 25 mg 03/12/18 08:39 03/12/18 08:44 Benadryl 50 Mg/Ml IV 03/12/18 08:40 25 mg STAT ONE Administration Diphenhydramine HCl Confirm 03/12/18 08:42 Benadryl 50 Mg/Ml Administered 03/12/18 08:43 Dose 50 mg .ROUTE .STK-MED ONE Enoxaparin Sodium 80 mg 03/12/18 11:31 03/12/18 12:00 Enoxaparin Sodium SQ 03/12/18 11:32 80 mg STAT ONE Administration Enoxaparin Sodium Confirm 03/12/18 12:00 Enoxaparin Sodium Administered 03/12/18 12:01 Dose 80 mg SQ .STK-MED ONE Sodium Chloride Confirm 03/12/18 08:01 Sodium Chloride 0.9% 1000 Ml Administered 03/12/18 08:02 Dose 1,000 mls @ ud .ROUTE .STK-MED ONE Sodium Chloride 1,000 mls @ 500 mls/hr 03/12/18 08:15 03/12/18 11:02 Sodium Chloride 0.9% 1000 Ml IV 04/11/18 08:14 999 mls/hr .Q2H NII Administration Sodium Chloride 1,000 mls @ 999 mls/hr 03/12/18 09:27 03/12/18 09:32 Sodium Chloride 0.9% 1000 Ml IV 03/12/18 10:27 999 mls/hr .Q1H1M STA Administration Sodium Chloride Confirm 03/12/18 09:27 Sodium Chloride 0.9% 1000 Ml Administered 03/12/18 09:28 Dose 1,000 mls @ ud .ROUTE .STK-MED ONE Sodium Chloride Confirm 03/12/18 10:59 Sodium Chloride 0.9% 1000 Ml Administered 03/12/18 11:00 Dose 1,000 mls @ ud .ROUTE .STK-MED ONE Morphine Sulfate 10 mg 03/12/18 08:39 03/12/18 08:45 Morphine Sulfate 10 Mg/Ml IV 03/12/18 08:40 10 mg STAT ONE Administration Morphine Sulfate Confirm 03/12/18 08:42 Morphine Sulfate 10 Mg/Ml Administered 03/12/18 08:43 Dose 10 mg .ROUTE .STK-MED ONE Naloxone HCl 0.4 mg 03/12/18 10:31 03/12/18 10:32 Narcan 0.4 Mg/Ml IV 03/12/18 10:32 0.4 mg STAT ONE Administration Naloxone HCl Confirm 03/12/18 10:31 Narcan 0.4 Mg/Ml Administered 03/12/18 10:32 Dose 0.4 mg .ROUTE .STK-MED ONE Ondansetron HCl 4 mg 03/12/18 08:39 03/12/18 08:45 Zofran 4 Mg/2 Ml Vial IV 03/12/18 08:40 4 mg STAT ONE Administration Ondansetron HCl Confirm 03/12/18 08:42 Zofran 4 Mg/2 Ml Vial Administered 03/12/18 08:43 Dose 4 mg .ROUTE .STK-MED ONE Lab/Rad Data: Laboratory Result Diagrams 03/12/18 08:10 03/12/18 13:30 Laboratory Results 06/02/18 06/02/18 06/02/18 Range/Units 13:30 13:30 11:15 WBC (4.0-10.5) K/mm3 RBC (4.1-5.6) M/mm3 Hgb (12.5-18.0) gm/dl Hct (42-50) % MCV (78-100) fl MCH (26-32) pg MCHC (32-36) g/dl RDW (11.5-14.0) % Plt Count (150-450) K/mm3 MPV (6-9.5) fl Gran % (36.0-66.0) % Eos # (Auto) (0-0.5) Absolute Lymphs (auto) (1.0-4.6) Absolute Monos (auto) (0.0-1.3) Lymphocytes % (24.0-44.0) % Monocytes % (0.0-12.0) % Eosinophils % (0.00-5.0) % Basophils % (0.0-0.4) % Absolute Granulocytes (1.4-6.9) Basophils # (0-0.4) PT (8.83-12.87) SECONDS INR (0.8-3.0) D-Dimer (215-500) ng/mL Sodium 134 L (137-145) mmol/L Potassium 4.4 (3.5-5.1) mmol/L Chloride 107 (98-107) mmol/L Carbon Dioxide 22 (22-30) mmol/L Anion Gap 9.8 (5-15) MEQ/L BUN 16 (9-20) mg/dL Creatinine 2.02 H (0.66-1.25) mg/dL Estimated GFR 35.8 ML/MIN Glucose 110 H (74-106) mg/dL Calcium 7.9 L (8.4-10.2) mg/dL Total Bilirubin (0.2-1.3) mg/dL AST (17-59) U/L ALT (0-50) U/L Alkaline Phosphatase (38-126) U/L Troponin I < 0.012 < 0.012 (0.000-0.034) ng/mL NT-Pro-B Natriuret Pep (0-900) pg/mL Serum Total Protein (6.3-8.2) g/dL Albumin (3.5-5.0) g/dL Amylase (30-110) U/L Lipase (23-300) U/L Ur Collection Type Urine Color (YELLOW) Urine Appearance (CLEAR) Urine pH (5-6) Ur Specific Stoddard (1.005-1.025) Urine Protein (Negative) Urine Ketones (NEGATIVE) Urine Blood (0-5) Jourdan/ul Urine Nitrite (NEGATIVE) Urine Bilirubin (NEGATIVE) Urine Urobilinogen (0-1) mg/dL Ur Leukocyte Esterase (NEGATIVE) Urine Microscopic RBC (0-2) /HPF Urine Microscopic WBC (0-5) /HPF Ur Epithelial Cells (FEW) /HPF Urine Bacteria (NEGATIVE) /HPF Hyaline Casts (0-2) /LPF Urine Culture Reflexed (NO) Urine Glucose (NEGATIVE) mg/dL Specimen Received 03/12/18 03/12/18 03/12/18 Range/Units 08:55 08:40 08:10 WBC (4.0-10.5) K/mm3 RBC (4.1-5.6) M/mm3 Hgb (12.5-18.0) gm/dl Hct (42-50) % MCV (78-100) fl MCH (26-32) pg MCHC (32-36) g/dl RDW (11.5-14.0) % Plt Count (150-450) K/mm3 MPV (6-9.5) fl Gran % (36.0-66.0) % Eos # (Auto) (0-0.5) Absolute Lymphs (auto) (1.0-4.6) Absolute Monos (auto) (0.0-1.3) Lymphocytes % (24.0-44.0) % Monocytes % (0.0-12.0) % Eosinophils % (0.00-5.0) % Basophils % (0.0-0.4) % Absolute Granulocytes (1.4-6.9) Basophils # (0-0.4) PT (8.83-12.87) SECONDS INR (0.8-3.0) D-Dimer (215-500) ng/mL Sodium (137-145) mmol/L Potassium (3.5-5.1) mmol/L Chloride (98-107) mmol/L Carbon Dioxide (22-30) mmol/L Anion Gap (5-15) MEQ/L BUN (9-20) mg/dL Creatinine (0.66-1.25) mg/dL Estimated GFR ML/MIN Glucose (74-106) mg/dL Calcium (8.4-10.2) mg/dL Total Bilirubin (0.2-1.3) mg/dL AST (17-59) U/L ALT (0-50) U/L Alkaline Phosphatase (38-126) U/L Troponin I < 0.012 (0.000-0.034) ng/mL NT-Pro-B Natriuret Pep (0-900) pg/mL Serum Total Protein (6.3-8.2) g/dL Albumin (3.5-5.0) g/dL Amylase 72 (30-110) U/L Lipase 25 (23-300) U/L Ur Collection Type CCMS Urine Color YELLOW (YELLOW) Urine Appearance CLEAR (CLEAR) Urine pH 5.0 (5-6) Ur Specific Stoddard 1.020 (1.005-1.025) Urine Protein NEGATIVE (Negative) Urine Ketones NEGATIVE (NEGATIVE) Urine Blood 5-10 (0-5) Jourdan/ul Urine Nitrite NEGATIVE (NEGATIVE) Urine Bilirubin NEGATIVE (NEGATIVE) Urine Urobilinogen NORMAL (0-1) mg/dL Ur Leukocyte Esterase NEGATIVE (NEGATIVE) Urine Microscopic RBC 2-5 (0-2) /HPF Urine Microscopic WBC 0-2 (0-5) /HPF Ur Epithelial Cells FEW (FEW) /HPF Urine Bacteria RARE (NEGATIVE) /HPF Hyaline Casts 10-25 (0-2) /LPF Urine Culture Reflexed YES (NO) Urine Glucose NEGATIVE (NEGATIVE) mg/dL Specimen Received 0855 03/12/18 03/12/18 03/12/18 03/12/18 Range/Units 08:10 08:10 08:10 WBC 9.7 (4.0-10.5) K/mm3 RBC 4.10 (4.1-5.6) M/mm3 Hgb 12.6 (12.5-18.0) gm/dl Hct 36.6 L (42-50) % MCV 89.3 (78-100) fl MCH 30.7 (26-32) pg MCHC 34.4 (32-36) g/dl RDW 13.2 (11.5-14.0) % Plt Count 258 (150-450) K/mm3 MPV 11.1 H (6-9.5) fl Gran % 56.6 (36.0-66.0) % Eos # (Auto) 0.30 (0-0.5) Absolute Lymphs (auto) 2.95 (1.0-4.6) Absolute Monos (auto) 0.94 (0.0-1.3) Lymphocytes % 30.3 (24.0-44.0) % Monocytes % 9.7 (0.0-12.0) % Eosinophils % 3.1 (0.00-5.0) % Basophils % 0.3 (0.0-0.4) % Absolute Granulocytes 5.50 (1.4-6.9) Basophils # 0.03 (0-0.4) PT 11.8 (8.83-12.87) SECONDS INR 1.01 (0.8-3.0) D-Dimer 804 H* (215-500) ng/mL Sodium 132 L (137-145) mmol/L Potassium 3.4 L (3.5-5.1) mmol/L Chloride 103 (98-107) mmol/L Carbon Dioxide 23 (22-30) mmol/L Anion Gap 10.2 (5-15) MEQ/L BUN 17 (9-20) mg/dL Creatinine 2.40 H (0.66-1.25) mg/dL Estimated GFR 29.3 ML/MIN Glucose 137 H (74-106) mg/dL Calcium 8.7 (8.4-10.2) mg/dL Total Bilirubin 0.50 (0.2-1.3) mg/dL AST 26 (17-59) U/L ALT 16 (0-50) U/L Alkaline Phosphatase 73 (38-126) U/L Troponin I (0.000-0.034) ng/mL NT-Pro-B Natriuret Pep 122 (0-900) pg/mL Serum Total Protein 6.7 (6.3-8.2) g/dL Albumin 3.7 (3.5-5.0) g/dL Amylase (30-110) U/L Lipase (23-300) U/L Ur Collection Type Urine Color (YELLOW) Urine Appearance (CLEAR) Urine pH (5-6) Ur Specific Stoddard (1.005-1.025) Urine Protein (Negative) Urine Ketones (NEGATIVE) Urine Blood (0-5) Jourdan/ul Urine Nitrite (NEGATIVE) Urine Bilirubin (NEGATIVE) Urine Urobilinogen (0-1) mg/dL Ur Leukocyte Esterase (NEGATIVE) Urine Microscopic RBC (0-2) /HPF Urine Microscopic WBC (0-5) /HPF Ur Epithelial Cells (FEW) /HPF Urine Bacteria (NEGATIVE) /HPF Hyaline Casts (0-2) /LPF Urine Culture Reflexed (NO) Urine Glucose (NEGATIVE) mg/dL Specimen Received - Progress Progress: improved Progress Note: 03/12/18 08:28 ADMINISTERED IV NORMAL SALINE BOLUS 500ML FOR BP 84/57 03/12/18 08:28, HELLER CATHETER 800ML URINE OUTPUT, BP 109/74, MORPHINE 10MG, BENADRYL 25MG, 03/12/18 09:01 03/12/18 10:49, NARCAN 0.2MG IV Discussed with .: Other (DISCUSSED WITH [facility] AT 1300 ACCEPTS TRANSFER VIA [facility]) - Departure Time of Disposition: 15:26 Departure Disposition: Transfer Clinical Impression: ACUTE CHEST PAIN, ACUTE URINARY RETENTION Condition: Stable Critical Care Time: No Referrals: MYNOR SCHULTE [Primary Care Provider] -
[2018-03-12 08:24] LABS: BASOPHIL % 0.3 % (0.0-0.4); Basophil (Absolute #) 0.03 (0-0.4); Eosinophil % 3.1 % (0.00-5.0); Granulocytes % 56.6 % (36.0-66.0); Hematocrit 36.6 % (42-50); Hemoglobin 12.6 gm/dl (12.5-18.0); Lymphocyte (Absolute #) 2.95 (1.0-4.6); Lymphocytes % 30.3 % (24.0-44.0); Mean Cell Volume 89.3 fl (78-100); Mean Corpuscular Hemoglobin 30.7 pg (26-32); Mean Corpuscular Hgb Concent. 34.4 g/dl (32-36); Mean Platelet Volume 11.1 fl (6-9.5); Monocyte (Absolute #) 0.94 (0.0-1.3); Monocytes % 9.7 % (0.0-12.0); Platelet Count 258 K/mm3 (150-450); Red Cell Distribution Width 13.2 % (11.5-14.0); White Blood Count 9.7 K/mm3 (4.0-10.5)
[2018-03-12] MEDS ORDERED: ECOTRIN 81 MG PO ONE (08:26)
[2018-03-12] MEDS: Sodium Chloride 0.9% 1000 ML 1,000 ML IV SCH ×2 (08:28→11:02)
[2018-03-12] MEDS ORDERED: Zofran 4 MG/2 ML VIAL IV ONE (08:39)
[2018-03-12] MEDS ORDERED: MORPHINE SULFATE 10 MG/ML IV ONE (08:39)
[2018-03-12] MEDS ORDERED: BENADRYL 50 MG/ML IV ONE (08:39)
[2018-03-12 08:41] LABS: INR 1.01 (0.8-3.0)
[2018-03-12] MEDS ORDERED: MORPHINE SULFATE 10 MG/ML ONE (08:42)
[2018-03-12] MEDS ORDERED: BENADRYL 50 MG/ML ONE (08:42)
[2018-03-12] MEDS ORDERED: Zofran 4 MG/2 ML VIAL ONE (08:42)
[2018-03-12 08:44] LABS: ALBUMIN 3.7 g/dL (3.5-5.0); ANION GAP 10.2 MEQ/L (5-15); BILIRUBIN,TOTAL 0.5 mg/dL (0.2-1.3); Calcium 8.7 mg/dL (8.4-10.2); Creatinine 1 2.4 mg/dL (0.66-1.25); Potassium 3.4 mmol/L (3.5-5.1); Total Protein 6.7 g/dL (6.3-8.2)
[2018-03-12 09:20] LABS: AMYLASE 72 U/L (30-110); LIPASE 25 U/L (23-300)
[2018-03-12] MEDS ORDERED: Sodium Chloride 0.9% 1000 ML 1,000 ML IV STA (09:27)
[2018-03-12 09:33] LABS: Appearance CLEAR (CLEAR); Bilirubin NEGATIVE (NEGATIVE); Glucose NEGATIVE (NEGATIVE); Ketones NEGATIVE (NEGATIVE); Leukocyte Esterase NEGATIVE (NEGATIVE); Nitrite NEGATIVE (NEGATIVE); Protein,Urine Dip NEGATIVE (Negative); Urobilinogen NORMAL mg/dL (0-1)
--- NOTE | 2018-03-12 09:51 | XRAY ---
Indication: Abdomen pain and distention. Multiple contiguous axial images obtained through the abdomen and pelvis without contrast as ordered. Comparison: March 10, 2018. Lung bases again demonstrates bibasilar dependent atelectasis and left base calcified pleural plaquing. No infiltrate or effusion. Heart is not enlarged. Noncontrasted stomach and bowel loops appear again nonobstructed. Normal appendix. No free fluid/air. New Jett catheter empties the bladder. Remaining liver, gallbladder, pancreas, spleen, adrenal glands, kidneys, and ureters appear unremarkable for noncontrast exam. Stable mild aortoiliac calcifications without AAA. Osseous structures intact again with mild degenerative changes throughout the spine and right L5 hemilaminectomy. Stable small fatty left intimal hernia. Impression: 1. New Jett catheter in situ and stable small fatty left inguinal hernia. 2. Again no new or acute intra-abdominal/pelvic abnormalities on this noncontrasted exam compared to CT 2 days ago. CTDI 22.61
--- NOTE | 2018-03-12 09:53 | XRAY ---
Indication: Chest pain. Comparison: September 30, 2017. Portable apical lordotic chest remains clear. Heart and mediastinal structures within normal limits. Bony thorax intact again with minimal degenerative changes and lower cervical fusion. No new/acute findings. Impression: Stable nonacute chest.
[2018-03-12 09:59] LABS: Bacteria RARE /HPF (NEGATIVE); Epithelial Cells FEW /HPF (FEW); WBC 0-2 /HPF (0-5)
[2018-03-12] MEDS ORDERED: Narcan 0.4 MG/ML ONE (10:31)
[2018-03-12] MEDS ORDERED: Narcan 0.4 MG/ML IV ONE (10:31)
[2018-03-12] MEDS ORDERED: DUONEB 0.5-3 MG/3 ml Neb IH ONE ×2 (10:55→11:00)
[2018-03-12] MEDS ORDERED: ENOXAPARIN SODIUM SQ ONE ×2 (11:31→12:00)
[2018-03-12 13:46] LABS: ANION GAP 9.8 MEQ/L (5-15); Calcium 7.9 mg/dL (8.4-10.2); Creatinine 1 2.02 mg/dL (0.66-1.25); Potassium 4.4 mmol/L (3.5-5.1)
[2018-03-12 15:21] VITALS: BP 88/70; PULSE 60
[2018-03-12 15:34] VITALS: O2SAT 92
== END 2018-03-12 15:21 | disposition short-term general hospital (02) ==
LOC: ED 07:47
DX: R07.9 Chest pain, unspecified (principal); R33.9 Retention of urine, unspecified; I25.2 Old myocardial infarction; Z79.82 Long term (current) use of aspirin; Z79.899 Other long term (current) drug therapy
CPT/HCPCS: 36000; 36415; 51702; 71045; 74176; 80048; 80053; 81000; 82150; 83690; 83880; 84484; 85025; 85379; 85610; 87086; 93005; 93041; 94150; 94640; 96360; 96374; 96375; 99285; J1200; J1650; J2270; J2310; J2405; A9270-GY

== ENCOUNTER 2018-04-09 10:25 | Emergency (ER) | payer MEDICARE ==
--- NOTE | 2018-04-09 11:10 | ERPHSYRPT ---
- History of Present Illness Time Seen by Provider: 04/09/18 10:57 Source: patient Exam Limitations: no limitations Patient Subjective Stated Complaint: states increasing swelling in abd and urinary retention for two days. hx urinary retention one month ago. Triage Nursing Assessment: ambulated to room per self. skin w/d, color normal, resp easy. abd very distended, firm. tender mid abd. states pain radiates into lower back. hx chronic lower back pain. Physician History: 62-year-old white male with history of COPD, renal insufficiency, high blood pressure, coronary artery disease, asthma, GERD, chronic pain syndrome. He arrives with complaint of inability to urinate since 2:00 this morning he states he's been having increasing abdominal distention. Patient has had suprapubic pain which is markedly improved after having a catheter placed on arrival. Patient was seen on him March 12 2018, for urinary retention he was transferred to the [facility] at that time he states that he had gone home with a Jett from there and is due to see a urologist later this month., Patient is not vomiting he states he is taking medications for constipation and had a good bowel movement several days ago (a large amount) Past medical history includes COPD, renal insufficiency, high blood pressure, coronary artery disease, myocardial infarction, asthma, GERD, migraines, renal failure, chronic pain syndrome, degenerative disc disease, skin cancer of his nose Past surgical history includes surgery on his neck active and bilateral shoulders. Patient takes morphine sulfate IR on a chronic basis Timing/Duration: other (abdominal distention for several days, unable to urinate since 2:00 this morning) Severity: moderate Modifying Factors: Improves With: nothing Associated Symptoms: abdominal pain, other (Unable to urinate since 2:00 this morning), No nausea, No vomiting, No shortness of breath, No heartburn, No diaphoresis, No cough, No chills, No chest pain, No fever, No headaches, No loss of appetite, No malaise, No rash, No syncope, No seizure, No weakness Allergies/Adverse Reactions: ketorolac tromethamine [From Toradol] Allergy (Mild, Verified 04/09/18 10:41) Swelling lorazepam [From Ativan] Allergy (Mild, Verified 04/09/18 10:41) nalbuphine HCl [From Nubain] Allergy (Mild, Verified 04/09/18 10:41) Swelling cetirizine [From Zyrtec] Adverse Reaction (Verified 04/09/18 10:41) diphenhydramine [From Benadryl] Adverse Reaction (Verified 04/09/18 10:41) Home Medications: Amlodipine Besylate 5 mg PO DAILY 03/16/16 [History] Aspirin 81 mg PO DAILY 03/16/16 [History] Cyclobenzaprine HCl 10 mg [Cyclobenzaprine 10 MG] 10 mg PO TID 03/16/16 [ History] Levothyroxine Sodium [Synthroid] 25 mcg PO DAILY 03/16/16 [History] Omeprazole 20 MG [Prilosec 20 mg] 20 mg PO DAILY 03/16/16 [History] Metoprolol Tartrate 25 mg [Lopressor 25MG Tab] 50 mg PO BID 08/10/17 [ History] Morphine Sulfate Ir 15 mg [Msir 15 mg] 15 mg DAILY 03/10/18 [History] Hx Tetanus, Diphtheria Vaccination/Date Given: No Hx Influenza Vaccination/Date Given: Yes Hx Pneumococcal Vaccination/Date Given: Yes - Review of Systems Constitutional: No Fever, No Chills Eyes: No No Symptoms Ears, Nose, & Throat: No Symptoms Respiratory: No Cough, No Dyspnea Cardiac: No Chest Pain, No Edema, No Syncope Abdominal/Gastrointestinal: Abdominal Pain, Other (abdominal distention) Genitourinary Symptoms: Urinary Retention Musculoskeletal: No Back Pain, No Neck Pain Skin: No Rash Neurological: No Dizziness, No Focal Weakness, No Sensory Changes Psychological: No Symptoms Endocrine: No Symptoms All Other Systems: Reviewed and Negative - Past Medical History Pertinent Past Medical History: Yes Neurological History: Migraines ENT History: No Pertinent History Cardiac History: Hypertension, Myocardial Infarction ([place]) Respiratory History: Asthma, COPD Endocrine Medical History: No Pertinent History Musculoskeletal History: Arthritis, Other GI Medical History: GERD, Other History: Other Psycho-Social History: No Pertinent History Male Reproductive Disorders: No Pertinent History Other Medical History: HEART BURN. Hx: ACUTE RENAL FAILURE. Chronic pain syndrome- back disks. Skin cancer on nose - Past Surgical History Past Surgical History: Yes Neuro Surgical History: No Pertinent History Cardiac: Cardiac Catheterization Respiratory: No Pertinent History Gastrointestinal: No Pertinent History Genitourinary: No Pertinent History Musculoskeletal: Orthopedic Surgery Male Surgical History: No Pertinent History Other Surgical History: neck, back lucía shoulders, lower back - Social History Smoking Status: Current every day smoker How long have you smoked: years Exposure to second hand smoke: Yes Drug Use: none Patient Lives Alone: No - Nursing Vital Signs Nursing Vital Signs: Initial Vital Signs Temperature 98 F 04/09/18 10:34 Pulse Rate 68 04/09/18 10:34 Respiratory Rate 16 04/09/18 10:34 Blood Pressure 132/81 04/09/18 10:34 O2 Sat by Pulse Oximetry 95 04/09/18 10:34 Pain Scale Pain Intensity 4 - Physical Exam General Appearance: moderate distress Eye Exam: PERRL/EOMI, eyes nml inspection Ears, Nose, Throat Exam: normal ENT inspection, TMs normal, pharynx normal, moist mucous membranes Neck Exam: normal inspection, non-tender, supple, full range of motion Respiratory Exam: normal breath sounds, lungs clear, No respiratory distress Cardiovascular Exam: regular rate/rhythm, normal heart sounds, normal peripheral pulses Gastrointestinal/Abdomen Exam: other (abdomen mildly firm, mild diffuse tenderness with palpation, positive bowel sounds) Back Exam: normal inspection, normal range of motion, No CVA tenderness, No vertebral tenderness Extremity Exam: normal inspection, normal range of motion, pelvis stable Neurologic Exam: alert, oriented x 3, cooperative, conservation policy analyst II-XII nml as tested, normal mood/affect, nml cerebellar function, nml station & gait, sensation nml, No motor deficits Skin Exam: normal color, warm, dry, No rash SpO2 Interpretation: normal (95%) SpO2: 95 Oxygen Delivery: Room Air - Course Nursing assessment & vital signs reviewed: Yes - Radiology Exams Abdomen X-ray Interpretation: Interpreted by me (three-view abdomen: Markedly distended bowel loops, no free air seen) - CT Exams Abdomen/Pelvis CT Interpretation: Tele-radiologist Report (CT abdomen and pelvis: 1 mild mesenteric panniculitis 2. New Jett catheter) Ordered Tests: Active Orders 24 hr Category Date Time Status Jett [Catheter-Raymond Jett] STAT Care 04/09/18 10:55 Active IV Insertion STAT Care 04/09/18 11:03 Active ABDOMEN AND PELVIS W/0 CONTRAS [CT] Stat Exams 04/09/18 12:02 Taken OBSTR/ACUTE ABDOMEN SERIES Stat Exams 04/09/18 11:22 Taken AMYLASE Stat Lab 04/09/18 11:10 Completed CBC W DIFF Stat Lab 04/09/18 11:10 Completed CMP Stat Lab 04/09/18 11:10 Completed LIPASE Stat Lab 04/09/18 11:10 Completed UA W/RFX UR CULTURE Stat Lab 04/09/18 11:10 Completed Medication Summary Discontinued Medications Generic Name Dose Route Start Last Admin Trade Name Teodoro PRN Reason Stop Dose Admin Morphine Sulfate 4 mg 04/09/18 12:02 04/09/18 12:39 Morphine Sulfate 4 Mg Inj IV 04/09/18 12:03 4 mg STAT ONE Administration Morphine Sulfate Confirm 04/09/18 12:36 Morphine Sulfate 4 Mg Inj Administered 04/09/18 12:37 Dose 4 mg .ROUTE .STK-MED ONE Lab/Rad Data: Laboratory Result Diagrams 04/09/18 11:10 04/09/18 11:10 Laboratory Results 04/09/18 04/09/18 04/09/18 Range/Units 11:10 11:10 11:10 WBC 8.1 (4.0-10.5) K/mm3 RBC 4.00 L (4.1-5.6) M/mm3 Hgb 12.2 L (12.5-18.0) gm/dl Hct 35.3 L (42-50) % MCV 88.3 (78-100) fl MCH 30.5 (26-32) pg MCHC 34.6 (32-36) g/dl RDW 13.0 (11.5-14.0) % Plt Count 246 (150-450) K/mm3 MPV 10.8 H (6-9.5) fl Gran % 51.4 (36.0-66.0) % Eos # (Auto) 0.77 H (0-0.5) Absolute Lymphs (auto) 2.32 (1.0-4.6) Absolute Monos (auto) 0.80 (0.0-1.3) Lymphocytes % 28.6 (24.0-44.0) % Monocytes % 9.9 (0.0-12.0) % Eosinophils % 9.5 H (0.00-5.0) % Basophils % 0.6 (0.0-0.4) % Absolute Granulocytes 4.17 (1.4-6.9) Basophils # 0.05 (0-0.4) Sodium 133 L (137-145) mmol/L Potassium 3.7 (3.5-5.1) mmol/L Chloride 99 (98-107) mmol/L Carbon Dioxide 26 (22-30) mmol/L Anion Gap 12.3 (5-15) MEQ/L BUN 9 (9-20) mg/dL Creatinine 1.44 H (0.66-1.25) mg/dL Estimated GFR 52.8 ML/MIN Glucose 116 H (74-106) mg/dL Calcium 8.6 (8.4-10.2) mg/dL Total Bilirubin 0.40 (0.2-1.3) mg/dL AST 31 (17-59) U/L ALT 24 (0-50) U/L Alkaline Phosphatase 81 (38-126) U/L Serum Total Protein 7.0 (6.3-8.2) g/dL Albumin 4.0 (3.5-5.0) g/dL Amylase 303 H (30-110) U/L Lipase 13 L (23-300) U/L Ur Collection Type VOID Urine Color YELLOW (YELLOW) Urine Appearance CLEAR (CLEAR) Urine pH 5.0 (5-6) Ur Specific [place] 1.020 (1.005-1.025) Urine Protein NEGATIVE (Negative) Urine Ketones NEGATIVE (NEGATIVE) Urine Blood NEGATIVE (0-5) Jourdan/ul Urine Nitrite NEGATIVE (NEGATIVE) Urine Bilirubin NEGATIVE (NEGATIVE) Urine Urobilinogen NORMAL (0-1) mg/dL Ur Leukocyte Esterase NEGATIVE (NEGATIVE) Urine Culture Reflexed NO (NO) Urine Glucose NEGATIVE (NEGATIVE) mg/dL Specimen Received 04/09/18 1102 - Progress Progress: improved Progress Note: 04/09/18 11:12 62-year-old white male with history of multiple medical complaints, chronic pain syndrome. Who was seen here March 12, 2018 secondary to urinary retention who went to the [facility] after a Jett was placed he states they monitored his your urine output and discharge him at that time with Jett which was subsequently removed. He states that he has been having increasing abdominal distention for the past several days. He also states he's been unable to urinate since 2:00 this morning. He was in moderate distress on arrival for a was placed immediately by patient' s nurse patient is now feeling markedly better. With over 1100 mL out of Jett On physical examination patient has moderate distention of his abdomen which is moderately firm mild diffuse tenderness positive bowel sounds. Patient had similar examination on 03/12/[address] of the abdomen and pelvis which was essentially negative. Will go ahead and anticipate leaving Jett in place providing leg bag. Will obtain CBC CMP amylase lipase and urine. It is noted patient is a chronically on morphine sulfate IR. He states that he has been taking medications to help him have bowel movements and feels like he had a rather large bowel movement couple days ago. 04/09/18 12:03 Patient's abdominal x-ray 3 view shows marketed distention of bowel loops. I do not see free air. Patient does have a moderate distention he states he is diffusely tender. Will go ahead and obtain CT abdomen without contrast. Will give patient morphine 4 mg IV. 04/09/18 13:29 CT of the abdomen and pelvis remarkable for mild mesenteric panniculitis and a new Jett catheter there is no signs of obstruction. I've discussed the mesenteric panniculitis with the patient and his they state that he's had this before(and virtual radiology notes previous mesenteric panniculitis on previous CT) Patient is feeling markedly better after 4 mg of morphine. He is wanting to go home. He has morphine IR at home. Will send patient home. Clear fluids only 24-48 hours. Will have nurse leave the Jett in and give patient a leg bag. Patient is to follow-up with [facility] on Wednesday sooner if problems. He is return for acute distress or for severe symptoms. - Departure Time of Disposition: 13:31 Departure Disposition: Home Clinical Impression: Urinary obstruction, Mesenteric panniculitis Abdominal pain Qualifiers: Abdominal location: generalized Qualified Code(s): R10.84 - Generalized abdominal pain Condition: Fair Critical Care Time: No Referrals: MYNOR SCHULTE [Primary Care Provider] - Additional Instructions: Return home. Plenty of fluids. Clear fluids only 24-48 hours if abdominal pain. Pain medication as prescribed by your family doctor. Jett to remain in. Follow-up with your family doctor call Wednesday for an appointment. Return for acute distress severe symptoms or for any problems.
[2018-04-09 11:14] LABS: BASOPHIL % 0.6 % (0.0-0.4); Basophil (Absolute #) 0.05 (0-0.4); Eosinophil % 9.5 % (0.00-5.0); Eosinophil (Absolute #) 0.77 (0-0.5); Granulocyte Absolute (ANC) 4.17 (1.4-6.9); Granulocytes % 51.4 % (36.0-66.0); Hematocrit 35.3 % (42-50); Hemoglobin 12.2 gm/dl (12.5-18.0); Lymphocyte (Absolute #) 2.32 (1.0-4.6); Lymphocytes % 28.6 % (24.0-44.0); Mean Cell Volume 88.3 fl (78-100); Mean Corpuscular Hemoglobin 30.5 pg (26-32); Mean Corpuscular Hgb Concent. 34.6 g/dl (32-36); Mean Platelet Volume 10.8 fl (6-9.5); Monocytes % 9.9 % (0.0-12.0); Platelet Count 246 K/mm3 (150-450); White Blood Count 8.1 K/mm3 (4.0-10.5)
[2018-04-09 11:15] LABS: Appearance CLEAR (CLEAR); Bilirubin NEGATIVE (NEGATIVE); Blood NEGATIVE Ery/ul (0-5); Glucose NEGATIVE (NEGATIVE); Ketones NEGATIVE (NEGATIVE); Leukocyte Esterase NEGATIVE (NEGATIVE); Nitrite NEGATIVE (NEGATIVE); Protein,Urine Dip NEGATIVE (Negative); Urobilinogen NORMAL mg/dL (0-1)
[2018-04-09 11:36] LABS: ANION GAP 12.3 MEQ/L (5-15); BILIRUBIN,TOTAL 0.4 mg/dL (0.2-1.3); Calcium 8.6 mg/dL (8.4-10.2); Creatinine 1 1.44 mg/dL (0.66-1.25); Potassium 3.7 mmol/L (3.5-5.1)
[2018-04-09] MEDS ORDERED: MORPHINE SULFATE 4 MG INJ IV ONE (12:02)
[2018-04-09] MEDS ORDERED: MORPHINE SULFATE 4 MG INJ ONE (12:36)
[2018-04-09 13:13] VITALS: PULSE 62
[2018-04-09 13:48] VITALS: BP 137/78; O2SAT 94
--- NOTE | 2018-04-09 16:17 | XRAY ---
Indication: Abdomen pain and distention one month. Unable to urinate. Multiple contiguous axial images obtained through the abdomen and pelvis without contrast as ordered. Comparison: March 10 and March 12, 2018. Lung bases again demonstrates left base calcified pleural plaquing and left infrahilar calcified nodes. No infiltrate or effusion. Heart is not enlarged. Stomach is distended with food. Noncontrasted stomach and bowel loops appear again nonobstructed. Normal appendix. No free fluid/air. Stable Jett catheter. Remaining liver, gallbladder, pancreas, spleen, adrenal glands, kidneys, and ureters appear unremarkable for noncontrast exam. Stable mild aortoiliac calcifications without AAA. Osseous structures intact again with mild degenerative changes throughout the spine and right L5 hemilaminectomy. Stable small fatty left intimal hernia. Impression: 1. Stable small fatty left inguinal hernia and Jett catheter in situ. 2. Again no new or acute intra-abdominal/pelvic abnormalities on this noncontrasted exam. Comment: Preliminary interpretation was made by C. No critical discrepancy. CTDI 22.51
--- NOTE | 2018-04-09 16:21 | XRAY ---
Indication: Abdominal pain and distention. Comparison: Portable chest March 12, 2018. 2 views of the abdomen nonacute and nonobstructed with a few bilateral pelvic phleboliths. Previous right L5 hemilaminectomy. Remaining solid organs and osseous structures unremarkable. Single PA chest demonstrates stable left lung base calcified pleural plaquing and lower cervical fusion surgery. Remaining heart and lungs normal. Bony thorax intact again with minimal degenerative changes. Impression: Negative abdomen and stable nonacute one view chest with chronic features.
== END 2018-04-09 13:49 | disposition home or self-care (01) ==
LOC: ED 10:25
DX: N13.9 Obstructive and reflux uropathy, unspecified (principal); K65.4 Sclerosing mesenteritis; R10.84 Generalized abdominal pain; Z79.899 Other long term (current) drug therapy
CPT/HCPCS: 36000; 36415; 51702; 74022; 74176; 80053; 81002; 82150; 83690; 85025; 96374; 99284; J2270

== ENCOUNTER 2018-04-13 21:40 | Emergency (ER) | payer MEDICARE, OTHER, SELFPAY ==
--- NOTE | 2018-04-13 21:55 | ERPHSYRPT ---
- History of Present Illness Time Seen by Provider: 04/13/18 21:46 Source: patient Exam Limitations: no limitations Physician History: Pt has been treated here with urinary retention, wears Jett catheter. He is scheduled to see Urologist on 04/25. His catheter was last changed here 4 days ago, tonight he noticed no more drainage, and slough material has been draining in it. He denies severe pain, vomiting, fever or other complaints. He denies taking antibiotics. Timing/Duration: today Activites at Onset: none Quality: pressure Onset Location: suprapubic Pain Radiation: none Severity of Pain-Max: mild Severity of Pain-Current: mild Modifying Factors: Improves With: nothing Associated Symptoms: denies symptoms Prior abdominal problems: similar symptoms Allergies/Adverse Reactions: ketorolac tromethamine [From Toradol] Allergy (Mild, Verified 04/13/18 21:59) Swelling lorazepam [From Ativan] Allergy (Mild, Verified 04/13/18 21:59) nalbuphine HCl [From Nubain] Allergy (Mild, Verified 04/13/18 21:59) Swelling cetirizine [From Zyrtec] Adverse Reaction (Verified 04/13/18 21:59) diphenhydramine [From Benadryl] Adverse Reaction (Verified 04/13/18 21:59) Home Medications: Amlodipine Besylate 5 mg PO DAILY 03/16/16 [History] Aspirin 81 mg PO DAILY 03/16/16 [History] Cyclobenzaprine HCl 10 mg [Cyclobenzaprine 10 MG] 10 mg PO TID 03/16/16 [ History] Levothyroxine Sodium [Synthroid] 25 mcg PO DAILY 03/16/16 [History] Omeprazole 20 MG [Prilosec 20 mg] 20 mg PO DAILY 03/16/16 [History] Metoprolol Tartrate 25 mg [Lopressor 25MG Tab] 50 mg PO BID 08/10/17 [ History] Morphine Sulfate Ir 15 mg [Msir 15 mg] 15 mg DAILY 03/10/18 [History] Hx Tetanus, Diphtheria Vaccination/Date Given: No Hx Influenza Vaccination/Date Given: Yes Hx Pneumococcal Vaccination/Date Given: Yes - Past Medical History Pertinent Past Medical History: Yes Neurological History: Migraines ENT History: No Pertinent History Cardiac History: Hypertension, Myocardial Infarction ([place]) Respiratory History: Asthma, COPD Endocrine Medical History: No Pertinent History Musculoskeletal History: Arthritis, Other GI Medical History: GERD, Other History: Other Psycho-Social History: No Pertinent History Male Reproductive Disorders: No Pertinent History Other Medical History: HEART BURN. Hx: ACUTE RENAL FAILURE. Chronic pain syndrome- back disks. Skin cancer on nose - Past Surgical History Past Surgical History: Yes Neuro Surgical History: No Pertinent History Cardiac: Cardiac Catheterization Respiratory: No Pertinent History Gastrointestinal: No Pertinent History Genitourinary: No Pertinent History Musculoskeletal: Orthopedic Surgery Male Surgical History: No Pertinent History Other Surgical History: neck, back lucía shoulders, lower back - Social History Smoking Status: Current every day smoker How long have you smoked: years Exposure to second hand smoke: Yes Drug Use: none Patient Lives Alone: No - Review of Systems Constitutional: No Symptoms Genitourinary Symptoms: Urinary Retention All Other Systems: Reviewed and Negative - Nursing Vital Signs Nursing Vital Signs: Initial Vital Signs Temperature 99 F 04/13/18 21:51 Pulse Rate 99 H 04/13/18 21:51 Respiratory Rate 18 04/13/18 21:51 Blood Pressure 165/110 04/13/18 21:51 O2 Sat by Pulse Oximetry 97 04/13/18 21:51 Pain Scale Pain Intensity 8 - Physical Exam General Appearance: no apparent distress Eye Exam: eyes nml inspection Ears, Nose, Throat Exam: normal ENT inspection, moist mucous membranes Neck Exam: normal inspection, non-tender Respiratory Exam: normal breath sounds, lungs clear Cardiovascular Exam: regular rate/rhythm, normal heart sounds Gastrointestinal/Abdomen Exam: soft, normal bowel sounds, tenderness (suprapubic , mild) Rectal Exam: deferred Male Genital Exam: normal genitalia (Jett catheter in place with dark urine in bag, dark, brown slough material is hanging in the catheter outlet, no bleeding. ) Back Exam: normal inspection, No CVA tenderness Extremity Exam: normal inspection Neurologic Exam: alert, oriented x 3, normal mood/affect Skin Exam: normal color, warm, dry Lymphatic Exam: No adenopathy SpO2 Interpretation: normal Oxygen Delivery: Room Air - Course Nursing assessment & vital signs reviewed: Yes Ordered Tests: Active Orders 24 hr Category Date Time Status CULTURE,URINE Stat Lab 04/13/18 22:35 Received UA W/ MICROSCOPIC Stat Lab 04/13/18 22:35 Completed Lab/Rad Data: Laboratory Results 04/13/18 Range/Units 22:35 Ur Collection Type CCMS Urine Color ONUR (YELLOW) Urine Appearance CLOUDY (CLEAR) Urine pH 6.0 (5-6) Ur Specific [place] 1.015 (1.005-1.025) Urine Protein 500 (Negative) Urine Ketones NEGATIVE (NEGATIVE) Urine Blood 250 (0-5) Jourdan/ul Urine Nitrite POSITIVE (NEGATIVE) Urine Bilirubin NEGATIVE (NEGATIVE) Urine Urobilinogen 1 (0-1) mg/dL Ur Leukocyte Esterase 2+ (NEGATIVE) Urine Microscopic RBC >100 (0-2) /HPF Urine Microscopic WBC >100 (0-5) /HPF Urine Bacteria MODERATE (NEGATIVE) /HPF Urine Culture Reflexed YES (NO) Urine Glucose NEGATIVE (NEGATIVE) mg/dL Specimen Received 04-13-18 5655 - Progress Progress: improved Progress Note: 04/13/18 23:00 Jett catheter was attempted to flush, unsuccesful, no good drained back, replaced with size 16 Jett cath successfully, drains properly, urine reveals infection, given Bactrim DS x1 PO, improved, afebrile, no severe pain or distress. He is being discharged instructed to follow up with Urologist as scheduled, return if severe pain, bleeding, vomiting, or fever> 102 F! Counseled pt/family regarding: lab results, diagnosis, need for follow-up - Departure Time of Disposition: 23:03 Departure Disposition: Home Clinical Impression: Urinary obstruction UTI (urinary tract infection) Qualifiers: Urinary tract infection type: site unspecified Hematuria presence: without hematuria Qualified Code(s): N39.0 - Urinary tract infection, site not specified Condition: Stable Critical Care Time: No Referrals: MYNOR SCHULTE [Primary Care Provider] - Instructions: Urinary Retention (DC), Urinary Tract Infection, Adult (DC) Additional Instructions: Drink plenty of fluids, follow up with Urologist as scheduled, return if severe pain, bleeding, vomiting, fever> 102 F! Prescriptions: Sulfamethoxazole/Trimethoprim [Bactrim Ds Tablet] 1 each PO BID 10 Days #20 tablet
[2018-04-13 22:47] LABS: Appearance CLOUDY (CLEAR); Leukocyte Esterase 2+ (NEGATIVE); Specific Gravity 1.015 (1.005-1.025)
[2018-04-13 22:48] LABS: Bilirubin NEGATIVE (NEGATIVE); Blood 250 Ery/ul (0-5); Glucose NEGATIVE (NEGATIVE); Ketones NEGATIVE (NEGATIVE); Nitrite POSITIVE (NEGATIVE); Protein,Urine Dip 500 (Negative); Urobilinogen 1 mg/dL (0-1)
[2018-04-13 22:49] LABS: Bacteria MODERATE /HPF (NEGATIVE); RBC >100 /HPF (0-2); WBC >100 /HPF (0-5)
[2018-04-13] MEDS ORDERED: BACTRIM DS TABLET PO ONE (23:03)
[2018-04-13] MEDS: BACTRIM DS TABLET PO STA (23:03)
[2018-04-13 23:13] VITALS: PULSE 76; O2SAT 96
[2018-04-13 23:16] VITALS: BP 182/99
== END 2018-04-13 23:15 | disposition home or self-care (01) ==
LOC: ED 21:40
DX: N13.9 Obstructive and reflux uropathy, unspecified (principal); I10 Essential (primary) hypertension; J44.9 Chronic obstructive pulmonary disease, unspecified; N39.0 Urinary tract infection, site not specified; J45.909 Unspecified asthma, uncomplicated; K21.9 Gastro-esophageal reflux disease without esophagitis; Z79.899 Other long term (current) drug therapy; Z72.0 Tobacco use; I25.2 Old myocardial infarction; G89.4 Chronic pain syndrome; Z85.828 Personal history of other malignant neoplasm of skin
CPT/HCPCS: 51702; 81000; 87077; 87086; 87186; 99284; A9270-GY

== ENCOUNTER 2018-04-18 14:10 | Emergency (ER) | payer MEDICARE ==
--- NOTE | 2018-04-18 14:44 | ERPHSYRPT ---
- History of Present Illness Time Seen by Provider: 04/18/18 14:39 Source: patient, family Exam Limitations: no limitations Patient Subjective Stated Complaint: Pt states "My blood pressure has dropped down the last hour from 104/68 to 72/52." Triage Nursing Assessment: Pt alert and oriented X 3, skin pwd PT ambulates with a limp. Pt arrives with a urinary catheter in place. PT able to speak in clear full sentences. 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 Allergies/Adverse Reactions: ketorolac tromethamine [From Toradol] Allergy (Mild, Verified 04/13/18 21:59) Swelling lorazepam [From Ativan] Allergy (Mild, Verified 04/13/18 21:59) nalbuphine HCl [From Nubain] Allergy (Mild, Verified 04/13/18 21:59) Swelling cetirizine [From Zyrtec] Adverse Reaction (Verified 04/13/18 21:59) diphenhydramine [From Benadryl] Adverse Reaction (Verified 04/13/18 21:59) Home Medications: Amlodipine Besylate 5 mg PO DAILY 03/16/16 [History] Aspirin 81 mg PO DAILY 03/16/16 [History] Cyclobenzaprine HCl 10 mg [Cyclobenzaprine 10 MG] 10 mg PO TID 03/16/16 [ History] Levothyroxine Sodium [Synthroid] 25 mcg PO DAILY 03/16/16 [History] Omeprazole 20 MG [Prilosec 20 mg] 20 mg PO DAILY 03/16/16 [History] Metoprolol Tartrate 25 mg [Lopressor 25MG Tab] 50 mg PO BID 08/10/17 [ History] Morphine Sulfate Ir 15 mg [Msir 15 mg] 15 mg DAILY 03/10/18 [History] Sulfamethoxazole/Trimethoprim [Sulfamethoxazole-Tmp Ds Tablet] 2 tab PO DAILY [History] Hx Tetanus, Diphtheria Vaccination/Date Given: Yes Hx Influenza Vaccination/Date Given: Yes Hx Pneumococcal Vaccination/Date Given: No Immunizations Up to Date: Yes - Review of Systems Constitutional: No Fever, No Lethargy Eyes: No Vision Changes Ears, Nose, & Throat: No Symptoms Respiratory: No Symptoms Cardiac: No Symptoms Abdominal/Gastrointestinal: No Symptoms Musculoskeletal: No Symptoms Skin: No Symptoms Neurological: No Focal Weakness, No Headache, No Lethargy, No Sensory Changes, No Speech Changes - Past Medical History Pertinent Past Medical History: Yes Neurological History: Migraines ENT History: No Pertinent History Cardiac History: Hypertension, Myocardial Infarction ([place]) Respiratory History: Asthma, COPD Endocrine Medical History: No Pertinent History Musculoskeletal History: Arthritis, Other GI Medical History: GERD, Other History: Other Psycho-Social History: No Pertinent History Male Reproductive Disorders: No Pertinent History Other Medical History: HEART BURN. Hx: ACUTE RENAL FAILURE. Chronic pain syndrome- back disks. Skin cancer on nose - Past Surgical History Past Surgical History: Yes Neuro Surgical History: No Pertinent History Cardiac: Cardiac Catheterization Respiratory: No Pertinent History Gastrointestinal: No Pertinent History Genitourinary: No Pertinent History Musculoskeletal: Orthopedic Surgery Male Surgical History: No Pertinent History Other Surgical History: neck, back luíca shoulders, lower back - Social History Smoking Status: Current every day smoker How long have you smoked: years Exposure to second hand smoke: Yes Drug Use: none Patient Lives Alone: No - Nursing Vital Signs Nursing Vital Signs: Initial Vital Signs Temperature 98.0 F 04/18/18 14:13 Pulse Rate 56 L 04/18/18 14:13 Respiratory Rate 18 04/18/18 14:13 Blood Pressure 143/77 04/18/18 14:13 O2 Sat by Pulse Oximetry 98 04/18/18 14:13 Pain Scale Pain Intensity 4 - Physical Exam General Appearance: no apparent distress Eye Exam: PERRL/EOMI Ears, Nose, Throat Exam: moist mucous membranes Neck Exam: No meningismus Respiratory Exam: normal breath sounds, lungs clear, No respiratory distress Cardiovascular Exam: regular rate/rhythm, normal heart sounds Gastrointestinal/Abdomen Exam: soft, No tenderness Extremity Exam: normal inspection Neurologic Exam: alert, oriented x 3, cooperative, normal mood/affect, other ( survey statistician equal, cn 3 to 10 grossly intact) SpO2 Interpretation: normal SpO2: 98 Oxygen Delivery: Room Air - Course Nursing assessment & vital signs reviewed: Yes EKG Interpreted by Me: Other (nsr 46, no stemi) - CT Exams Head CT Interpretation: Negative, Discussed w/radiologist Ordered Tests: Active Orders 24 hr Category Date Time Status Shank Rander STAT Care 04/18/18 15:56 Active EKG-ER Only STAT Care 04/18/18 15:55 Active IV Insertion STAT Care 04/18/18 15:55 Active Orthostatic Vital Signs STAT Care 04/18/18 14:44 Active HEAD WITHOUT CONTRAST [CT] Stat Exams 04/18/18 16:25 Completed CBC W DIFF Stat Lab 04/18/18 14:20 Completed CMP Stat Lab 04/18/18 14:20 Completed Lactic Acid Stat Lab 04/18/18 16:10 Completed TROPONIN Q3H Lab 04/18/18 14:20 Completed TROPONIN Q3H Lab 04/18/18 19:00 Ordered TROPONIN Q3H Lab 04/18/18 22:00 Ordered TROPONIN Q3H Lab 04/19/18 01:00 Ordered TROPONIN Q3H Lab 04/19/18 04:00 Ordered Medication Summary Discontinued Medications Generic Name Dose Route Start Last Admin Trade Name Freq PRN Reason Stop Dose Admin Sodium Chloride 1,000 mls @ 999 mls/hr 04/18/18 15:55 04/18/18 18:16 Sodium Chloride 0.9% 1000 Ml IV 04/18/18 16:55 Infused .Q1H1M STA Infusion Sodium Chloride Confirm 04/18/18 16:00 Sodium Chloride 0.9% 1000 Ml Administered 04/18/18 16:01 Dose 1,000 mls @ ud .ROUTE .[facility] Lab/Rad Data: Laboratory Result Diagrams 04/18/18 14:20 04/18/18 14:20 Laboratory Results 04/18/18 04/18/18 04/18/18 Range/Units 16:10 14:20 14:20 WBC (4.0-10.5) K/mm3 RBC (4.1-5.6) M/mm3 Hgb (12.5-18.0) gm/dl Hct (42-50) % MCV (78-100) fl MCH (26-32) pg MCHC (32-36) g/dl RDW (11.5-14.0) % Plt Count (150-450) K/mm3 MPV (6-9.5) fl Gran % (36.0-66.0) % Eos # (Auto) (0-0.5) Absolute Lymphs (auto) (1.0-4.6) Absolute Monos (auto) (0.0-1.3) Lymphocytes % (24.0-44.0) % Monocytes % (0.0-12.0) % Eosinophils % (0.00-5.0) % Basophils % (0.0-0.4) % Absolute Granulocytes (1.4-6.9) Basophils # (0-0.4) Sodium 140 (137-145) mmol/L Potassium 3.9 (3.5-5.1) mmol/L Chloride 106 (98-107) mmol/L Carbon Dioxide 26 (22-30) mmol/L Anion Gap 12.6 (5-15) MEQ/L BUN 9 (9-20) mg/dL Creatinine 1.30 H (0.66-1.25) mg/dL Estimated GFR 59.5 ML/MIN Glucose 93 (74-106) mg/dL Lactic Acid 0.9 (0.4-2.0) Calcium 9.0 (8.4-10.2) mg/dL Total Bilirubin 0.30 (0.2-1.3) mg/dL AST 20 (17-59) U/L ALT 13 (0-50) U/L Alkaline Phosphatase 69 (38-126) U/L Troponin I < 0.012 (0.000-0.034) ng/mL Serum Total Protein 6.6 (6.3-8.2) g/dL Albumin 3.7 (3.5-5.0) g/dL 04/18/18 Range/Units 14:20 WBC 6.2 (4.0-10.5) K/mm3 RBC 4.36 (4.1-5.6) M/mm3 Hgb 13.4 (12.5-18.0) gm/dl Hct 39.1 L (42-50) % MCV 89.7 (78-100) fl MCH 30.7 (26-32) pg MCHC 34.3 (32-36) g/dl RDW 14.1 H (11.5-14.0) % Plt Count 324 (150-450) K/mm3 MPV 11.2 H (6-9.5) fl Gran % 57.3 (36.0-66.0) % Eos # (Auto) 0.71 H (0-0.5) Absolute Lymphs (auto) 1.19 (1.0-4.6) Absolute Monos (auto) 0.70 (0.0-1.3) Lymphocytes % 19.1 L (24.0-44.0) % Monocytes % 11.2 (0.0-12.0) % Eosinophils % 11.4 H (0.00-5.0) % Basophils % 1.0 (0.0-0.4) % Absolute Granulocytes 3.58 (1.4-6.9) Basophils # 0.06 (0-0.4) Sodium (137-145) mmol/L Potassium (3.5-5.1) mmol/L Chloride (98-107) mmol/L Carbon Dioxide (22-30) mmol/L Anion Gap (5-15) MEQ/L BUN (9-20) mg/dL Creatinine (0.66-1.25) mg/dL Estimated GFR ML/MIN Glucose (74-106) mg/dL Lactic Acid (0.4-2.0) Calcium (8.4-10.2) mg/dL Total Bilirubin (0.2-1.3) mg/dL AST (17-59) U/L ALT (0-50) U/L Alkaline Phosphatase (38-126) U/L Troponin I (0.000-0.034) ng/mL Serum Total Protein (6.3-8.2) g/dL Albumin (3.5-5.0) g/dL - Progress Progress: improved Progress Note: 04/18/18 18:26 see your doctor, return if worse, continue present medical regimen Counseled pt/family regarding: lab results, diagnosis, need for follow-up, rad results - Departure Time of Disposition: 18:27 Departure Disposition: Home Clinical Impression: Hypotension Qualifiers: Hypotension type: unspecified hypotension type Qualified Code(s): I95.9 - Hypotension, unspecified Condition: Stable Critical Care Time: No Referrals: MYNOR SCHULTE [Primary Care Provider] - Instructions: Orthostatic Hypotension (DC)
[2018-04-18] MEDS ORDERED: Sodium Chloride 0.9% 1000 ML 1,000 ML IV STA (15:55)
[2018-04-18] MEDS ORDERED: Sodium Chloride 0.9% 1000 ML 1,000 ML ONE (16:00)
[2018-04-18 16:06] LABS: Basophil (Absolute #) 0.06 (0-0.4); Eosinophil % 11.4 % (0.00-5.0); Eosinophil (Absolute #) 0.71 (0-0.5); Granulocyte Absolute (ANC) 3.58 (1.4-6.9); Granulocytes % 57.3 % (36.0-66.0); Hematocrit 39.1 % (42-50); Hemoglobin 13.4 gm/dl (12.5-18.0); Lymphocyte (Absolute #) 1.19 (1.0-4.6); Lymphocytes % 19.1 % (24.0-44.0); Mean Cell Volume 89.7 fl (78-100); Mean Corpuscular Hemoglobin 30.7 pg (26-32); Mean Corpuscular Hgb Concent. 34.3 g/dl (32-36); Mean Platelet Volume 11.2 fl (6-9.5); Monocytes % 11.2 % (0.0-12.0); Platelet Count 324 K/mm3 (150-450); Red Blood Count 4.36 M/mm3 (4.1-5.6); Red Cell Distribution Width 14.1 % (11.5-14.0); White Blood Count 6.2 K/mm3 (4.0-10.5)
[2018-04-18 16:11] LABS: ALBUMIN 3.7 g/dL (3.5-5.0); ANION GAP 12.6 MEQ/L (5-15); BILIRUBIN,TOTAL 0.3 mg/dL (0.2-1.3); Creatinine 1 1.3 mg/dL (0.66-1.25); Potassium 3.9 mmol/L (3.5-5.1); Total Protein 6.6 g/dL (6.3-8.2)
--- NOTE | 2018-04-18 18:05 | XRAY ---
Exam: CT of the head without IV contrast from 04/18/2018. CTDI: 68.51 Comparison: CT of the head without IV contrast from 10/31/2009. Indication: Low blood pressure, dizzy. Technique: Non-IV contrast axial images were obtained of the brain. Reconstructed coronal and sagittal images were created and reviewed. Findings: The ventricles appear within normal limits of size. There is mild occasional prominence of the cortical sulci, not inappropriate for the patient's age. No focal mass effect or midline shift is seen. No acute intracranial bleed or abnormal extra-axial fluid collection is seen. Structures of the posterior fossa appear unremarkable. There are some subtle periventricular and subcortical white matter changes, likely due to minor chronic microvascular disease. No acute territorial infarct is seen. No fracture of the calvarium of the skull is seen. No other focal bone lesion is seen. The mastoid air cells appear unremarkable. There is some minimal mucosal thickening within the anterior aspect of the ethmoid sinus complex, nonspecific. Impression: 1. I see no evidence of acute intracranial bleed or other acute intracranial process. 2. Other than some minor chronic small vessel ischemic white matter changes, the remainder of the brain appears essentially unremarkable.
[2018-04-18 18:37] VITALS: BP 110/66; PULSE 58; O2SAT 97
== END 2018-04-18 18:36 | disposition home or self-care (01) ==
LOC: ED 14:10
DX: I95.9 Hypotension, unspecified (principal); I10 Essential (primary) hypertension; J45.909 Unspecified asthma, uncomplicated; J44.9 Chronic obstructive pulmonary disease, unspecified; K21.9 Gastro-esophageal reflux disease without esophagitis; G89.4 Chronic pain syndrome; I25.2 Old myocardial infarction; Z79.899 Other long term (current) drug therapy
CPT/HCPCS: 36000; 36415; 70450; 80053; 83605; 84484; 85025; 93005; 93041; 96360; 96361; 99284

== ENCOUNTER 2018-04-24 18:02 | Emergency (ER) | payer MEDICARE ==
[2018-04-24] MEDS ORDERED: DECADRON 10MG INJ. IM ONE (18:45)
--- NOTE | 2018-04-24 18:48 | ERPHSYRPT ---
- History of Present Illness Time Seen by Provider: 04/24/18 18:42 Source: patient, family Exam Limitations: no limitations Patient Subjective Stated Complaint: Pt states "I have a UTI and they put me on bactrim and I started to get a rash. I was told to stop taking the bactrim and take benadryl to help with the rash. I am taking benadryl every day and the rash is getting worse. Triage Nursing Assessment: Pt alert and oriented X 3, skin pwd Pt ambulates with an upright steady gait, able to speak in clear full sentences. PT has a berman catheter in place upon arrival. Pt has red rash on legs, arms, abdomen and chest, hands swollen. Physician History: The patient is a 62-year-old male with his complaining of a worsening red rash that itches all over his body. He had a urinary tract infection is given Bactrim. A rash began after 3 or 4 days of Bactrim use. He stopped the Bactrim one week ago but the rash has continued. He has no trouble breathing. His past medical history is significant for he UTI, bronchitis. Timing/Duration: week(s) (1), gradual onset Quality: burning, itchy Severity: moderate Location: generalized Possible Causes: medications (bactrim) Modifying Factors: Improves With: antihistamine (benadryl) Associated Symptoms: rash, No difficulty breathing, No edema Allergies/Adverse Reactions: ketorolac tromethamine [From Toradol] Allergy (Mild, Verified 04/13/18 21:59) Swelling lorazepam [From Ativan] Allergy (Mild, Verified 04/13/18 21:59) nalbuphine HCl [From Nubain] Allergy (Mild, Verified 04/13/18 21:59) Swelling cetirizine [From Zyrtec] Adverse Reaction (Verified 04/13/18 21:59) diphenhydramine [From Benadryl] Adverse Reaction (Verified 04/13/18 21:59) Home Medications: Amlodipine Besylate 5 mg PO DAILY 03/16/16 [History] Aspirin 81 mg PO DAILY 03/16/16 [History] Cyclobenzaprine HCl 10 mg [Cyclobenzaprine 10 MG] 10 mg PO TID 03/16/16 [ History] Levothyroxine Sodium [Synthroid] 25 mcg PO DAILY 03/16/16 [History] Omeprazole 20 MG [Prilosec 20 mg] 20 mg PO DAILY 03/16/16 [History] Metoprolol Tartrate 25 mg [Lopressor 25MG Tab] 50 mg PO BID 08/10/17 [ History] Morphine Sulfate Ir 15 mg [Msir 15 mg] 15 mg DAILY 03/10/18 [History] Sulfamethoxazole/Trimethoprim [Sulfamethoxazole-Tmp Ds Tablet] 2 tab PO DAILY [History] Hx Tetanus, Diphtheria Vaccination/Date Given: Yes Hx Influenza Vaccination/Date Given: No Hx Pneumococcal Vaccination/Date Given: No Immunizations Up to Date: Yes - Review of Systems Constitutional: No Fever, No Chills Eyes: No Symptoms Ears, Nose, & Throat: No Symptoms Respiratory: No Cough, No Dyspnea Cardiac: No Chest Pain, No Edema, No Syncope Abdominal/Gastrointestinal: No Abdominal Pain, No Nausea, No Vomiting, No Diarrhea Genitourinary Symptoms: No Dysuria Musculoskeletal: No Back Pain, No Neck Pain Skin: Rash Neurological: No Dizziness, No Focal Weakness, No Sensory Changes Psychological: No Symptoms Endocrine: No Symptoms Hematologic/Lymphatic: No Symptoms Immunological/Allergic: No Symptoms All Other Systems: Reviewed and Negative - Past Medical History Pertinent Past Medical History: Yes Neurological History: Migraines ENT History: No Pertinent History Cardiac History: Hypertension, Myocardial Infarction ([place]) Respiratory History: Asthma, COPD Endocrine Medical History: No Pertinent History Musculoskeletal History: Arthritis, Other GI Medical History: GERD, Other History: Other Psycho-Social History: No Pertinent History Male Reproductive Disorders: No Pertinent History Other Medical History: HEART BURN. Hx: ACUTE RENAL FAILURE. Chronic pain syndrome- back disks. Skin cancer on nose - Past Surgical History Past Surgical History: Yes Neuro Surgical History: No Pertinent History Cardiac: Cardiac Catheterization Respiratory: No Pertinent History Gastrointestinal: No Pertinent History Genitourinary: No Pertinent History Musculoskeletal: Orthopedic Surgery Male Surgical History: No Pertinent History Other Surgical History: neck, back lucía shoulders, lower back - Social History Smoking Status: Current every day smoker How long have you smoked: years Exposure to second hand smoke: Yes Drug Use: none Patient Lives Alone: No - Nursing Vital Signs Nursing Vital Signs: Initial Vital Signs Temperature 99.0 F 04/24/18 18:14 Pulse Rate 81 04/24/18 18:14 Respiratory Rate 18 04/24/18 18:14 Blood Pressure 154/101 04/24/18 18:14 O2 Sat by Pulse Oximetry 98 04/24/18 18:14 Pain Scale Pain Intensity 8 - Physical Exam General Appearance: no apparent distress, alert Eye Exam: PERRL/EOMI, eyes nml inspection Ears, Nose, Throat Exam: normal ENT inspection, pharynx normal, moist mucous membranes Neck Exam: normal inspection, non-tender, supple, full range of motion Respiratory Exam: normal breath sounds, lungs clear, No respiratory distress Cardiovascular Exam: regular rate/rhythm, normal heart sounds Gastrointestinal/Abdomen Exam: soft, mass, No tenderness Rectal Exam: not done Back Exam: normal inspection, normal range of motion, No CVA tenderness, No vertebral tenderness Extremity Exam: normal inspection, normal range of motion Neurologic Exam: alert, oriented x 3, cooperative, normal mood/affect, sensation nml, No motor deficits Skin Exam: rash (generalized red confluent rash over torso and face.) SpO2 Interpretation: normal SpO2: 98 Oxygen Delivery: Room Air - Departure Time of Disposition: 18:45 Departure Disposition: Home Clinical Impression: Allergic reaction caused by a drug Condition: Stable Critical Care Time: No Referrals: MYNOR SCHULTE [Primary Care Provider] - Additional Instructions: You have an allergic reaction caused by the use of Bactrim. You were given Decadron 10 mg by IM in the ER. Continue with prednisone 60 mg daily for 5 days. Follow-up at her next scheduled visit at the [facility] on Wednesday. Prescriptions: Prednisone 20 mg [Deltasone 20 mg] 3 tab PO DAILY #15 tablet
[2018-04-24] MEDS ORDERED: DECADRON 10MG INJ. ONE (19:06)
[2018-04-24 22:57] VITALS: BP 146/87; PULSE 76; O2SAT 96
== END 2018-04-24 19:37 | disposition home or self-care (01) ==
LOC: ED 18:02
DX: L27.0 Generalized skin eruption due to drugs and medicaments taken internally (principal); T37.0X5A Adverse effect of sulfonamides, initial encounter; Z79.899 Other long term (current) drug therapy
CPT/HCPCS: 96372; 99283; J1100

== ENCOUNTER 2018-05-01 16:54 | Emergency (ER) | payer MEDICARE ==
--- NOTE | 2018-05-01 17:25 | ERPHSYRPT ---
- History of Present Illness Time Seen by Provider: 05/01/18 17:20 Source: patient Exam Limitations: no limitations Patient Subjective Stated Complaint: pt reports he has had urinary cath placed braulio 6 wks ago-states that earlier he had urine coming out around his catheter and that it was moving-states that the cath would not come all the way out but he is concerned that the bulb is not alright Triage Nursing Assessment: pt pink warm and [id number]-ca obvious distress noted- pt has harsh breathing that he reports is normal for him-speaking in complete sentences with wheezes noted-states that he has to strain to urinate Physician History: The patient is a 62-year-old male with his complaining that he is having difficulty with his Jett catheter. He's had 3 changes of his Jett catheter in the last 6 weeks. The Jett catheter was placed because he was having urinary retention. [facility] was [facility] on Wednesday and had a bladder scan done for possible cancer. [facility]. Today he is straining in order to urinate through his catheter. Now when he strains to urinate, he has good urine flow around the catheter. He has no fever or chills. His past medical history is significant for urinary obstruction and COPD. Timing/Duration: today Activites at Onset: none Onset Location: suprapubic Pain Radiation: none Severity of Pain-Max: mild Severity of Pain-Current: mild Modifying Factors: Improves With: urinating Prior abdominal problems: none Sexual intercourse history: non-contributory Allergies/Adverse Reactions: ketorolac tromethamine [From Toradol] Allergy (Mild, Verified 05/01/18 17:07) Swelling lorazepam [From Ativan] Allergy (Mild, Verified 05/01/18 17:07) nalbuphine HCl [From Nubain] Allergy (Mild, Verified 05/01/18 17:07) Swelling cetirizine [From Zyrtec] Adverse Reaction (Verified 05/01/18 17:07) diphenhydramine [From Benadryl] Adverse Reaction (Verified 05/01/18 17:07) Home Medications: Amlodipine Besylate 5 mg PO DAILY 03/16/16 [History] Aspirin 81 mg PO DAILY 03/16/16 [History] Cyclobenzaprine HCl 10 mg [Cyclobenzaprine 10 MG] 10 mg PO TID 03/16/16 [ History] Levothyroxine Sodium [Synthroid] 25 mcg PO DAILY 03/16/16 [History] Omeprazole 20 MG [Prilosec 20 mg] 20 mg PO DAILY 03/16/16 [History] Metoprolol Tartrate 25 mg [Lopressor 25MG Tab] 50 mg PO BID 08/10/17 [ History] Morphine Sulfate Ir 15 mg [Msir 15 mg] 15 mg DAILY 03/10/18 [History] Sulfamethoxazole/Trimethoprim [Sulfamethoxazole-Tmp Ds Tablet] 2 tab PO DAILY [History] Hx Tetanus, Diphtheria Vaccination/Date Given: Yes Hx Influenza Vaccination/Date Given: No Hx Pneumococcal Vaccination/Date Given: No Immunizations Up to Date: Yes - Past Medical History Pertinent Past Medical History: Yes Neurological History: Migraines ENT History: No Pertinent History Cardiac History: Hypertension, Myocardial Infarction ([place]) Respiratory History: Asthma, COPD Endocrine Medical History: No Pertinent History Musculoskeletal History: Arthritis, Other GI Medical History: GERD, Other History: Other Psycho-Social History: No Pertinent History Male Reproductive Disorders: No Pertinent History Other Medical History: HEART BURN. Hx: ACUTE RENAL FAILURE. Chronic pain syndrome- back disks. Skin cancer on nose - Past Surgical History Past Surgical History: Yes Neuro Surgical History: No Pertinent History Cardiac: Cardiac Catheterization Respiratory: No Pertinent History Gastrointestinal: No Pertinent History Genitourinary: No Pertinent History Musculoskeletal: Orthopedic Surgery Male Surgical History: No Pertinent History Other Surgical History: neck, back lucía shoulders, lower back - Social History Smoking Status: Current every day smoker How long have you smoked: years Exposure to second hand smoke: Yes Drug Use: none Patient Lives Alone: No - Review of Systems Constitutional: No Fever, No Chills Eyes: No Symptoms Ears, Nose, & Throat: No Symptoms Respiratory: No Cough, No Dyspnea Cardiac: No Chest Pain, No Edema, No Syncope Abdominal/Gastrointestinal: No Abdominal Pain, No Nausea, No Vomiting, No Diarrhea Genitourinary Symptoms: Urinary Retention Musculoskeletal: No Back Pain, No Neck Pain Skin: No Rash Neurological: No Dizziness, No Focal Weakness, No Sensory Changes Psychological: No Symptoms Endocrine: No Symptoms Hematologic/Lymphatic: No Symptoms Immunological/Allergic: No Symptoms All Other Systems: Reviewed and Negative - Nursing Vital Signs Nursing Vital Signs: Initial Vital Signs Temperature 98.3 F 05/01/18 17:06 Pulse Rate 86 05/01/18 17:06 Respiratory Rate 18 05/01/18 17:06 Blood Pressure 188/122 05/01/18 17:06 O2 Sat by Pulse Oximetry 98 05/01/18 17:06 Pain Scale Pain Intensity 7 - Physical Exam General Appearance: no apparent distress, alert Eye Exam: PERRL/EOMI Ears, Nose, Throat Exam: pharynx normal, moist mucous membranes Neck Exam: normal inspection, supple Respiratory Exam: normal breath sounds, lungs clear Cardiovascular Exam: regular rate/rhythm, No edema Rectal Exam: not done Back Exam: normal inspection, No CVA tenderness Extremity Exam: normal inspection, normal range of motion, No pedal edema Neurologic Exam: alert, oriented x 3, cooperative, sensation nml, No motor deficits Skin Exam: normal color, warm, dry, No rash SpO2 Interpretation: normal SpO2: 98 Oxygen Delivery: Room Air - Departure Time of Disposition: 17:29 Departure Disposition: Home Clinical Impression: Jett catheter problem Condition: Stable Critical Care Time: No Referrals: MYNOR SCHULTE [Primary Care Provider] - Additional Instructions: You were having difficulty urinating through your catheter. Instead you were able to urinate around the catheter. We removed the catheter today to give you a trial of urinating without the catheter. If you have difficulty, please return to the ER for catheter placement.
[2018-05-01 17:46] VITALS: BP 162/106; PULSE 66; O2SAT 94
== END 2018-05-01 17:48 | disposition home or self-care (01) ==
LOC: ED 16:54
DX: T83.038A Leakage of other urinary catheter, initial encounter (principal); I10 Essential (primary) hypertension; J45.909 Unspecified asthma, uncomplicated; I25.2 Old myocardial infarction; K21.9 Gastro-esophageal reflux disease without esophagitis; G89.4 Chronic pain syndrome; Z79.899 Other long term (current) drug therapy
CPT/HCPCS: 99283

== ENCOUNTER 2018-11-25 19:02 | Observation (INO) | payer MEDICARE ==
[2018-11-25] MEDS ORDERED: Sodium Chloride 0.9% 1000 ML 1,000 ML IV SCH (19:45)
--- NOTE | 2018-11-25 19:50 | ERPHSYRPT ---
- History of Present Illness Time Seen by Provider: 11/25/18 19:30 Historian: patient Exam Limitations: clinical condition Patient Subjective Stated Complaint: Flank pain Triage Nursing Assessment: Patient ambulated into ED and transferred self to bed. Patient A+O X 3. Patient's skin pale, warm and dry. Patient complains of right sided flank pain 8/10. Patient also states he is having a hard time breathing at times due to his abdomen swelling. Patient's abdomen swollen and tender to right side. Patient's lungs noted to have wheezing to right lower lobe that clears with cough otherwise clear. Patient states his pain is worse when he coughs. Physician History: PATIENT WITH A HISTORY OF COPD, CORONARY ARTERY DISEASE, ACUTE RENAL FAILURE, CHRONIC BACK PAIN COMPLAINS OF INCREASING ABDOMINAL DISTENTION, ABDOMINAL PAIN ASSOCIATED WITH DIFFICULTY BREATHING OVER THE PAST 3 DAYS. DENIES COUGH, FEVER , EMESIS, DIARRHEA OR DIFFICULTY URINATING. Timing/Duration: day(s) Activities at Onset: none Quality: cramping, tightness Abdominal Pain Onset Location: generalized abdomen Pain Radiation: no radiation Severity of Pain-Max: severe Severity of Pain-Current: severe Modifying Factors: Improves With: breathing, movement Associated Symptoms: shortness of breath Previous symptoms: same symptoms as today Allergies/Adverse Reactions: ketorolac tromethamine [From Toradol] Allergy (Mild, Verified 11/25/18 19:24) Swelling lorazepam [From Ativan] Allergy (Mild, Verified 11/25/18 19:24) nalbuphine HCl [From Nubain] Allergy (Mild, Verified 11/25/18 19:24) Swelling cetirizine [From Zyrtec] Adverse Reaction (Verified 11/25/18 19:24) diphenhydramine [From Benadryl] Adverse Reaction (Verified 11/25/18 19:24) Home Medications: Amlodipine Besylate 5 mg PO DAILY 03/16/16 [History] Cyclobenzaprine HCl 10 mg [Cyclobenzaprine 10 MG] 10 mg PO TID PRN [History] Omeprazole 20 MG [Prilosec 20 mg] 20 mg PO DAILY 03/16/16 [History] Metoprolol Tartrate 25 mg [Lopressor 25MG Tab] 50 mg PO BID 08/10/17 [ History] Morphine Sulfate Ir 15 mg [Msir 15 mg] 15 mg PO DAILY 03/10/18 [History] Celecoxib [Celebrex] 100 mg PO DAILY 11/25/18 [History] Hx Tetanus, Diphtheria Vaccination/Date Given: Yes Hx Influenza Vaccination/Date Given: No Hx Pneumococcal Vaccination/Date Given: No Immunizations Up to Date: Yes - Review of Systems Constitutional: No Fever, No Chills Eyes: No Symptoms Ears, Nose, & Throat: No Symptoms Respiratory: Dyspnea, Dyspnea on Exertion (RANGEL), No Cough Cardiac: No Chest Pain, No Edema, No Syncope Abdominal/Gastrointestinal: Abdominal Pain (DISTENTION), Other, No Nausea, No Vomiting, No Diarrhea Genitourinary Symptoms: No Symptoms, No Dysuria Musculoskeletal: No Symptoms, No Back Pain, No Neck Pain Skin: No Symptoms, No Rash Neurological: No Dizziness, No Focal Weakness, No Sensory Changes Psychological: No Symptoms Endocrine: No Symptoms All Other Systems: Reviewed and Negative - Past Medical History Pertinent Past Medical History: Yes Neurological History: Migraines ENT History: No Pertinent History Cardiac History: Hypertension, Myocardial Infarction (SD) Respiratory History: Asthma, COPD Endocrine Medical History: No Pertinent History Musculoskeletal History: Arthritis, Other GI Medical History: GERD, Other History: Other Psycho-Social History: No Pertinent History Male Reproductive Disorders: No Pertinent History Other Medical History: HEART BURN. Hx: ACUTE RENAL FAILURE. Chronic pain syndrome- back disks. Skin cancer on nose - Past Surgical History Past Surgical History: Yes Neuro Surgical History: No Pertinent History Cardiac: Cardiac Catheterization Respiratory: No Pertinent History Gastrointestinal: No Pertinent History Genitourinary: No Pertinent History Musculoskeletal: Orthopedic Surgery Male Surgical History: No Pertinent History Other Surgical History: neck, back lucía shoulders, lower back - Social History Smoking Status: Current every day smoker How long have you smoked: 40 years Exposure to second hand smoke: No Drug Use: none Patient Lives Alone: No - Nursing Vital Signs Nursing Vital Signs: Initial Vital Signs Temperature 97.4 F 11/25/18 19:12 Pulse Rate 111 H 11/25/18 19:12 Respiratory Rate 23 11/25/18 19:12 Blood Pressure 159/100 11/25/18 19:12 O2 Sat by Pulse Oximetry 96 11/25/18 19:12 Pain Scale Pain Intensity 8 - Physical Exam General Appearance: mild distress Eye Exam: PERRL/EOMI, eyes nml inspection Ears, Nose, Throat Exam: normal ENT inspection, pharynx normal, moist mucous membranes Neck Exam: normal inspection, non-tender, supple, full range of motion Respiratory Exam: normal breath sounds, lungs clear, No respiratory distress Cardiovascular Exam: regular rate/rhythm, normal heart sounds Gastrointestinal/Abdomen Exam: tenderness, distention (MARKED DISTENTION, HYPOACTIVE BOWEL SOUNDS, DIFFUSELY TENDER.), No mass Back Exam: normal inspection, normal range of motion, No CVA tenderness, No vertebral tenderness Extremity Exam: normal inspection, normal range of motion, pelvis stable Neurologic Exam: alert, oriented x 3, cooperative, normal mood/affect, nml cerebellar function, sensation nml, No motor deficits Skin Exam: normal color, warm, dry SpO2 Interpretation: normal SpO2: 96 - Course EKG Interpreted by Me: RATE, Sinus Rhythm (RATE 79 OCCASIONAL PVC) - Radiology Exams Chest X-ray Interpretation: Interpreted by me, Negative, No Infiltrates - CT Exams Abdomen/Pelvis CT Interpretation: Tele-radiologist Report (NORMAL APPENDIX, GALLBLADDER AND BILE DUCTS NORMAL, NO CALCIFIED STONES OR DUCTAL DILATION,NO RENAL STONES, HYDRONEPHROSIS,NO FREE AIR,FLUID NO BOWEL WALL THICKENING) Ordered Tests: Active Orders 24 hr Category Date Time Status Clean Catch Urine Specimen STAT Care 11/25/18 19:38 Active EKG-ER Only STAT Care 11/25/18 19:50 Active IV Insertion STAT Care 11/25/18 19:38 Active Oxygen-ED Only Nasal Cannula 2 lpm Care 11/25/18 19:50 Active ABDOMEN AND PELVIS W CONTRAST [CT] Stat Exams 11/25/18 19:39 Taken CHEST 1 VIEW (PORTABLE) Stat Exams 11/25/18 19:39 Taken AMYLASE Stat Lab 11/25/18 19:30 Completed BLOOD CULTURE Stat Lab 11/25/18 20:05 Received CBC W DIFF Stat Lab 11/25/18 19:30 Completed CMP Stat Lab 11/25/18 19:30 Completed LIPASE Stat Lab 11/25/18 19:30 Completed Lactic Acid Stat Lab 11/25/18 20:20 Completed Lactic Acid Stat Lab 11/25/18 22:27 Ordered MAGNESIUM Stat Lab 11/25/18 19:50 Completed NT PRO BNP Stat Lab 11/25/18 19:50 Completed PT INR [PROTIME WITH INR] Stat Lab 11/25/18 19:30 Completed TROPONIN Q3H Lab 11/25/18 20:00 Completed TROPONIN Q3H Lab 11/25/18 23:00 Ordered TROPONIN Q3H Lab 11/26/18 02:00 Ordered TROPONIN Q3H Lab 11/26/18 05:00 Ordered TROPONIN Q3H Lab 11/26/18 08:00 Ordered UA W/RFX UR CULTURE Stat Lab 11/25/18 20:30 Completed Peak Expiratory Flow Rate ONCE RT 11/25/18 19:50 Active Respiratory Nebulizer STAT RT 11/25/18 19:51 Completed Respiratory Therapy Assessment PRN RT 11/25/18 20:45 Active Medication Summary Generic Name Dose Route Start Last Admin Trade Name Freq PRN Reason Stop Dose Admin Sodium Chloride 1,000 mls @ 100 mls/hr 11/25/18 19:45 11/25/18 19:56 Sodium Chloride 0.9% 1000 Ml IV 12/25/18 19:44 100 mls/hr .Q10H NII Administration Discontinued Medications Generic Name Dose Route Start Last Admin Trade Name Freq PRN Reason Stop Dose Admin Albuterol/Ipratropium 3 ml 11/25/18 19:51 11/25/18 20:30 Duoneb 0.5-3 Mg/3 Ml Neb IH 11/25/18 19:52 3 ml STAT ONE Administration Albuterol/Ipratropium Confirm 11/25/18 20:22 Duoneb 0.5-3 Mg/3 Ml Neb Administered 11/25/18 20:23 Dose 3 ml IH .STK-MED ONE Hydromorphone HCl Confirm 11/25/18 21:24 Hydromorphone 1 Mg/Ml Ampule Administered 11/25/18 21:25 Dose 1 mg .ROUTE .STK-MED ONE Hydromorphone HCl 1 mg 11/25/18 21:23 11/25/18 21:40 Hydromorphone 1 Mg/Ml Ampule IV 11/25/18 21:24 1 mg STAT ONE Administration Sodium Chloride 1,000 mls @ 999 mls/hr 11/25/18 21:23 11/25/18 22:45 Sodium Chloride 0.9% 1000 Ml IV 11/25/18 22:23 Infused .Q1H1M STA Infusion Lab/Rad Data: Laboratory Result Diagrams 11/25/18 19:30 11/25/18 19:30 Laboratory Results 11/25/18 11/25/18 11/25/18 Range/Units 20:30 20:20 20:00 WBC (4.0-10.5) K/mm3 RBC (4.1-5.6) M/mm3 Hgb (12.5-18.0) gm/dl Hct (42-50) % MCV (78-100) fl MCH (26-32) pg MCHC (32-36) g/dl RDW (11.5-14.0) % Plt Count (150-450) K/mm3 MPV (6-9.5) fl Gran % (36.0-66.0) % Eos # (Auto) (0-0.5) Absolute Lymphs (auto) (1.0-4.6) Absolute Monos (auto) (0.0-1.3) Lymphocytes % (24.0-44.0) % Monocytes % (0.0-12.0) % Eosinophils % (0.00-5.0) % Basophils % (0.0-0.4) % Absolute Granulocytes (1.4-6.9) Basophils # (0-0.4) PT (8.83-12.87) SECONDS INR (0.8-3.0) Sodium (137-145) mmol/L Potassium (3.5-5.1) mmol/L Chloride (98-107) mmol/L Carbon Dioxide (22-30) mmol/L Anion Gap (5-15) MEQ/L BUN (9-20) mg/dL Creatinine (0.66-1.25) mg/dL Estimated GFR ML/MIN Glucose (74-106) mg/dL Lactic Acid 1.9 (0.4-2.0) Calcium (8.4-10.2) mg/dL Magnesium (1.6-2.3) mg/dL Total Bilirubin (0.2-1.3) mg/dL AST (17-59) U/L ALT (0-50) U/L Alkaline Phosphatase (38-126) U/L Troponin I < 0.012 (0.000-0.034) ng/mL NT-Pro-B Natriuret Pep (0-900) pg/mL Serum Total Protein (6.3-8.2) g/dL Albumin (3.5-5.0) g/dL Amylase (30-110) U/L Lipase (23-300) U/L Urine Color YELLOW (YELLOW) Urine Appearance CLEAR (CLEAR) Urine pH 5.0 (5-6) Ur Specific Eugene 1.014 (1.005-1.025) Urine Protein NEGATIVE (Negative) Urine Ketones NEGATIVE (NEGATIVE) Urine Blood SMALL (0-5) Jourdan/ul Urine Nitrite NEGATIVE (NEGATIVE) Urine Bilirubin NEGATIVE (NEGATIVE) Urine Urobilinogen 2 (0-1) mg/dL Ur Leukocyte Esterase NEGATIVE (NEGATIVE) Urine WBC (Auto) NONE (0-5) /HPF Urine RBC (Auto) NONE (0-2) /HPF U Epithel Cells (Auto) NONE (FEW) /HPF Urine Bacteria (Auto) NONE (NEGATIVE) /HPF Urine Mucus (Auto) SLIGHT (NEGATIVE) /HPF Urine Culture Reflexed NO (NO) Urine Glucose NEGATIVE (NEGATIVE) mg/dL 11/25/18 11/25/18 11/25/18 Range/Units 19:50 19:30 19:30 WBC (4.0-10.5) K/mm3 RBC (4.1-5.6) M/mm3 Hgb (12.5-18.0) gm/dl Hct (42-50) % MCV (78-100) fl MCH (26-32) pg MCHC (32-36) g/dl RDW (11.5-14.0) % Plt Count (150-450) K/mm3 MPV (6-9.5) fl Gran % (36.0-66.0) % Eos # (Auto) (0-0.5) Absolute Lymphs (auto) (1.0-4.6) Absolute Monos (auto) (0.0-1.3) Lymphocytes % (24.0-44.0) % Monocytes % (0.0-12.0) % Eosinophils % (0.00-5.0) % Basophils % (0.0-0.4) % Absolute Granulocytes (1.4-6.9) Basophils # (0-0.4) PT 11.3 (8.83-12.87) SECONDS INR 0.97 (0.8-3.0) Sodium 139 (137-145) mmol/L Potassium 3.8 (3.5-5.1) mmol/L Chloride 101 (98-107) mmol/L Carbon Dioxide 28 (22-30) mmol/L Anion Gap 14.1 (5-15) MEQ/L BUN 13 (9-20) mg/dL Creatinine 1.16 (0.66-1.25) mg/dL Estimated GFR > 60.0 ML/MIN Glucose 113 H (74-106) mg/dL Lactic Acid (0.4-2.0) Calcium 9.4 (8.4-10.2) mg/dL Magnesium 2.2 (1.6-2.3) mg/dL Total Bilirubin 0.50 (0.2-1.3) mg/dL AST 37 (17-59) U/L ALT 24 (0-50) U/L Alkaline Phosphatase 100 (38-126) U/L Troponin I (0.000-0.034) ng/mL NT-Pro-B Natriuret Pep 130 (0-900) pg/mL Serum Total Protein 8.1 (6.3-8.2) g/dL Albumin 4.6 (3.5-5.0) g/dL Amylase 87 (30-110) U/L Lipase 19 L (23-300) U/L Urine Color (YELLOW) Urine Appearance (CLEAR) Urine pH (5-6) Ur Specific Eugene (1.005-1.025) Urine Protein (Negative) Urine Ketones (NEGATIVE) Urine Blood (0-5) Jourdan/ul Urine Nitrite (NEGATIVE) Urine Bilirubin (NEGATIVE) Urine Urobilinogen (0-1) mg/dL Ur Leukocyte Esterase (NEGATIVE) Urine WBC (Auto) (0-5) /HPF Urine RBC (Auto) (0-2) /HPF U Epithel Cells (Auto) (FEW) /HPF Urine Bacteria (Auto) (NEGATIVE) /HPF Urine Mucus (Auto) (NEGATIVE) /HPF Urine Culture Reflexed (NO) Urine Glucose (NEGATIVE) mg/dL 11/25/18 Range/Units 19:30 WBC 9.7 (4.0-10.5) K/mm3 RBC 4.81 (4.1-5.6) M/mm3 Hgb 14.6 (12.5-18.0) gm/dl Hct 42.9 (42-50) % MCV 89.2 (78-100) fl MCH 30.4 (26-32) pg MCHC 34.0 (32-36) g/dl RDW 13.4 (11.5-14.0) % Plt Count 300 (150-450) K/mm3 MPV 11.3 H (6-9.5) fl Gran % 54.4 (36.0-66.0) % Eos # (Auto) 0.53 H (0-0.5) Absolute Lymphs (auto) 2.99 (1.0-4.6) Absolute Monos (auto) 0.83 (0.0-1.3) Lymphocytes % 31.0 (24.0-44.0) % Monocytes % 8.6 (0.0-12.0) % Eosinophils % 5.5 H (0.00-5.0) % Basophils % 0.5 (0.0-0.4) % Absolute Granulocytes 5.26 (1.4-6.9) Basophils # 0.05 (0-0.4) PT (8.83-12.87) SECONDS INR (0.8-3.0) Sodium (137-145) mmol/L Potassium (3.5-5.1) mmol/L Chloride (98-107) mmol/L Carbon Dioxide (22-30) mmol/L Anion Gap (5-15) MEQ/L BUN (9-20) mg/dL Creatinine (0.66-1.25) mg/dL Estimated GFR ML/MIN Glucose (74-106) mg/dL Lactic Acid (0.4-2.0) Calcium (8.4-10.2) mg/dL Magnesium (1.6-2.3) mg/dL Total Bilirubin (0.2-1.3) mg/dL AST (17-59) U/L ALT (0-50) U/L Alkaline Phosphatase (38-126) U/L Troponin I (0.000-0.034) ng/mL NT-Pro-B Natriuret Pep (0-900) pg/mL Serum Total Protein (6.3-8.2) g/dL Albumin (3.5-5.0) g/dL Amylase (30-110) U/L Lipase (23-300) U/L Urine Color (YELLOW) Urine Appearance (CLEAR) Urine pH (5-6) Ur Specific Eugene (1.005-1.025) Urine Protein (Negative) Urine Ketones (NEGATIVE) Urine Blood (0-5) Jourdan/ul Urine Nitrite (NEGATIVE) Urine Bilirubin (NEGATIVE) Urine Urobilinogen (0-1) mg/dL Ur Leukocyte Esterase (NEGATIVE) Urine WBC (Auto) (0-5) /HPF Urine RBC (Auto) (0-2) /HPF U Epithel Cells (Auto) (FEW) /HPF Urine Bacteria (Auto) (NEGATIVE) /HPF Urine Mucus (Auto) (NEGATIVE) /HPF Urine Culture Reflexed (NO) Urine Glucose (NEGATIVE) mg/dL - Progress Progress: pain not gone completely Discussed with Dr.: Lala (DISCUSSED WITH DR LALA AT 2320 FOR OBSERVATION) - Departure Time of Disposition: 23:30 Departure Disposition: Observation Clinical Impression: ABDOMINAL PAIN Condition: Stable Critical Care Time: No Referrals: MYNOR SCHULTE [Primary Care Provider] -
[2018-11-25] MEDS ORDERED: DUONEB 0.5-3 MG/3 ml Neb IH ONE ×2 (19:51→20:22)
[2018-11-25] MEDS ORDERED: Sodium Chloride 0.9% 1000 ML 1,000 ML ONE (19:52)
[2018-11-25 20:17] LABS: BASOPHIL % 0.5 % (0.0-0.4); Basophil (Absolute #) 0.05 (0-0.4); Eosinophil % 5.5 % (0.00-5.0); Eosinophil (Absolute #) 0.53 (0-0.5); Granulocyte Absolute (ANC) 5.26 (1.4-6.9); Granulocytes % 54.4 % (36.0-66.0); Hematocrit 42.9 % (42-50); Hemoglobin 14.6 gm/dl (12.5-18.0); Lymphocyte (Absolute #) 2.99 (1.0-4.6); Mean Cell Volume 89.2 fl (78-100); Mean Corpuscular Hemoglobin 30.4 pg (26-32); Mean Platelet Volume 11.3 fl (6-9.5); Monocyte (Absolute #) 0.83 (0.0-1.3); Monocytes % 8.6 % (0.0-12.0); Platelet Count 300 K/mm3 (150-450); Red Blood Count 4.81 M/mm3 (4.1-5.6); Red Cell Distribution Width 13.4 % (11.5-14.0); White Blood Count 9.7 K/mm3 (4.0-10.5)
[2018-11-25 20:27] LABS: Lactic Acid 1.9 (0.4-2.0)
[2018-11-25 20:28] LABS: INR 0.97 (0.8-3.0); PROTIME 11.3 SECONDS (8.83-12.87)
[2018-11-25 20:35] LABS: ALBUMIN 4.6 g/dL (3.5-5.0); ALKALINE PHOSPHATASE 100 U/L (38-126); AMYLASE 87 U/L (30-110); ANION GAP 14.1 MEQ/L (5-15); BLOOD UREA NITROGEN 13 mg/dL (9-20); CHLORIDE 101 mmol/L (98-107); Calcium 9.4 mg/dL (8.4-10.2); Carbon Dioxide 28 mmol/L (22-30); Creatinine 1 1.16 mg/dL (0.66-1.25); Glucose 113 mg/dL (74-106); LIPASE 19 U/L (23-300); Potassium 3.8 mmol/L (3.5-5.1); SGOT/AST 37 U/L (17-59); SGPT/ALT 24 U/L (0-50); SODIUM 139 mmol/L (137-145); Total Protein 8.1 g/dL (6.3-8.2)
[2018-11-25 20:42] LABS: MAGNESIUM 2.2 mg/dL (1.6-2.3)
[2018-11-25 20:49] LABS: Appearance CLEAR (CLEAR); Bilirubin NEGATIVE (NEGATIVE); Blood SMALL Ery/ul (0-5); Glucose NEGATIVE (NEGATIVE); Ketones NEGATIVE (NEGATIVE); Leukocyte Esterase NEGATIVE (NEGATIVE); Mucus SLIGHT /HPF (NEGATIVE); Nitrite NEGATIVE (NEGATIVE); Protein,Urine Dip NEGATIVE (Negative); Specific Gravity 1.014 (1.005-1.025); Urobilinogen 2 mg/dL (0-1)
[2018-11-25] MEDS ORDERED: Sodium Chloride 0.9% 1000 ML 1,000 ML IV STA (21:23)
[2018-11-25] MEDS ORDERED: Hydromorphone 1 mg/ml Ampule IV ONE (21:23)
[2018-11-25] MEDS ORDERED: Hydromorphone 1 mg/ml Ampule ONE (21:24)
[2018-11-26] MEDS ORDERED: Zofran 4 MG/2 ML VIAL IV PRN (00:15)
[2018-11-26] MEDS ORDERED: PROTONIX 40 MG IV IV SCH (00:15)
[2018-11-26] MEDS ORDERED: MORPHINE SULFATE 4 MG INJ IV PRN (00:15)
[2018-11-26] MEDS: Sodium Chloride 0.9% 1000 ML 1,000 ML IV SCH ×3 (00:28→22:31)
[2018-11-26] MEDS ORDERED: DUONEB 0.5-3 MG/3 ml Neb IH PRN (01:53)
--- NOTE | 2018-11-26 07:26 | XRAY ---
Indication: Abdomen pain and distention. Multiple contiguous axial images obtained through the abdomen and pelvis using 80 cc Isovue 370 contrast only. Comparison: Noncontrast exam April 09, 2018. Lung bases demonstrate stable left base calcified pleural plaquing. No infiltrate or effusion. Heart is not enlarged. Noncontrasted stomach and bowel loops appear nonobstructed. Normal appendix. Mild/moderate diffuse scattered colonic fecal debris throughout. No free fluid/air. Remaining liver, gallbladder, pancreas, spleen, adrenal glands, kidneys, ureters, and bladder appear unremarkable for noncontrast exam. Stable mild aortoiliac calcifications. No pathologic retroperitoneal lymphadenopathy or AAA. Osseous structures intact again with mild degenerative changes throughout the spine and right L5 hemilaminectomy. Stable small fatty left inguinal hernia. Impression: 1. Fecal stasis without obstruction and stable small fatty left inguinal hernia. 2. Remaining CT abdomen/pelvis with contrast exam is negative. Comment: Preliminary interpretation was made by [facility]. No critical discrepancy. CTDI 22.15
--- NOTE | 2018-11-26 07:28 | XRAY ---
Indication: Dyspnea. Comparison: April 09, 2018. Portable apical lordotic chest remains clear with stable left base calcified pleural plaquing. Heart and mediastinal structures within normal limits. Bony thorax intact again with minimal degenerative changes and lower cervical fusion surgery. Impression: Stable nonacute chest with chronic features.
[2018-11-26] MEDS: DUONEB 0.5-3 MG/3 ml Neb IH SCH ×4 (08:08→20:03)
[2018-11-26] MEDS: Spiriva 18 Mcg/Cap Inhaler IH SCH (08:14)
[2018-11-26] MEDS ORDERED: FLUZONE QUAD (36mo-64yo) 2018-2019 SYRINGE IM ONE (10:00)
[2018-11-26] MEDS: Lopressor 25MG Tab PO SCH ×2 (10:17→22:30)
[2018-11-26] MEDS: NORVASC 5 MG PO SCH (10:17)
--- NOTE | 2018-11-26 13:11 | PCM.HP ---
History of Present Illness - Chief Complaint Chief Complaint: Acute abdominal pain History of Present Illness: is a 63 year old male pt of Dr. Bloom and [facility] who came to ER yesterday c/o 3-4 d of RUQ pain and abd distension. His labs were unremarkable and his CT abd/pelvis with contrast showed only fecal stasis, stable small L inguinal hernia (nothing acute). He c/o 3/10 RUQ pain for 3-4 d. Constant. No hx cholecystectomy. no V/D. He did have an EGD and colonoscopy he thinks 2 yrs ago at the [facility] - he has them " all the time" he says, he thinks for polyps. He has a hx of esophageal stricture and varices (thinks he has had esophagus stretched but does not think he's had varices banded). He has a remote history of drinking 12 beers/day. He is not nauseated, regarding CLD he says, "I won't eat that" and that he is hungry. Pt also c/o 3-4 weeks of increased cough and sputum production. Does not think the cough is causing the abd pain. no fever. Pt has chronic back pain. Says he has seen the doctors at the [facility] and they will only give him one pain pill at night. He has to stay in bed often due to the pain; cannot sit long due to pain. He does have an appointment to see Dr. Ramos. - Review of Systems Respiratory: Cough, Short Of Breath Abdominal/Gastrointestinal: Abdominal Pain Musculoskeletal: Back Pain All Other Systems: Reviewed and Negative Medications & Allergies Home Medications: Home Medication List Amlodipine Besylate 5 mg PO DAILY 03/16/16 [History Confirmed 11/25/18] Cyclobenzaprine HCl 10 mg [Cyclobenzaprine 10 MG] 10 mg PO TID PRN [History Confirmed 11/26/18] Omeprazole 20 MG [Prilosec 20 mg] 20 mg PO DAILY 03/16/16 [History Confirmed ] Metoprolol Tartrate 25 mg [Lopressor 25MG Tab] 50 mg PO BID 08/10/17 [ History Confirmed 11/26/18] Morphine Sulfate Ir 15 mg [Msir 15 mg] 15 mg PO HS 03/10/18 [History Confirmed 11/26/18] Celecoxib [Celebrex] 100 mg PO DAILY 11/25/18 [History Confirmed 11/25/18] Diphenhydramine HCl 25 mg [Benadryl 25 mg Capsule] 100 mg PO HS PRN PRN [History Confirmed 11/26/18] Allergies/Adverse Reactions: Allergies Allergy/AdvReac Type Severity Reaction Status Date / Time Sulfa (Sulfonamide Allergy Intermediate Rash Verified 11/26/18 01:14 Antibiotics) ketorolac tromethamine Allergy Mild Swelling Verified 11/25/18 19:24 [From Toradol] nalbuphine HCl [From Nubain] Allergy Mild Swelling Verified 11/25/18 19:24 lorazepam [From Ativan] AdvReac Mild Verified 11/26/18 01:14 cetirizine [From Zyrtec] AdvReac Verified 11/25/18 19:24 diphenhydramine AdvReac Verified 11/25/18 19:24 [From Benadryl] - Past Medical History Past Medical History: Yes Neurological History: Migraines ENT History: No Pertinent History Cardiac History: Hypertension, Myocardial Infarction ([place]) Respiratory History: Asthma, COPD Endocrine Medical History: No Pertinent History Musculoskelatal History: Arthritis, Other GI Medical History: GERD, Other History: Other Pyscho-Social History: No Pertinent History Male Reproductive Disorders: No Pertinent History Comment: HEART BURN. Hx: ACUTE RENAL FAILURE. Chronic pain syndrome- back disks. Skin cancer on nose - Past Surgical History Past Surgical History: Yes Neuro Surgical History: No Pertinent History Cardiac History: Cardiac Catheterization Respiratory Surgery: No Pertinent History GI Surgical History: No Pertinent History Genitourinary Surgical Hx: No Pertinent History Musculskeletal Surgical Hx: Orthopedic Surgery Male Surgical History: No Pertinent History Other Surgical History: neck, back lucía shoulders, lower back - Social History Smoking Status: Current every day smoker How long have you smoked: 40 years Exposure to second hand smoke: No Alcohol: None Drug Use: none - Physical Exam Vital Signs: Vital Signs - 24 hr Temp Pulse Resp BP Pulse Ox 11/26/18 11:41 51 L 18 98 11/26/18 10:59 98 F 70 20 108/72 96 11/26/18 08:19 71 18 96 11/26/18 07:16 98.6 F 68 20 150/74 95 11/26/18 04:11 98.6 F 76 22 117/77 98 11/26/18 01:54 96 H 84 H 96 11/26/18 00:37 99.0 F 77 22 163/89 96 11/25/18 23:35 98.0 F 76 18 140/99 95 11/25/18 23:28 96 11/25/18 21:16 82 16 104/77 95 11/25/18 20:45 81 20 95 11/25/18 20:30 80 26 H 146/97 98 11/25/18 19:12 97.4 F 111 H 23 159/100 96 Oxygen-Last 24 hours O2 Percentage 2 Liters = 28% O2 Percentage 2 Liters = 28% O2 Percentage 2 Liters = 28% O2 Percentage 2 Liters = 28% Oxygen Flowrate (L/min)-RT 2 General Appearance: mild distress (with moving around or moving the bed), alert Neurologic Exam: oriented x 3, cooperative Eye Exam: eyes nml inspection Ears, Nose, Throat Exam: moist mucous membranes Respiratory Exam: diminished breath sounds (good air exchange), No crackles/ rales, No rhonchi, No wheezing Cardiovascular Exam: No normal heart sounds (distant) Gastrointestinal/Abdomen Exam: soft, normal bowel sounds, tenderness (RUQ, epigastrum moderate ttp. There is mild ttp with deep palpation throughout.), distention, No guarding, No rebound Back Exam: normal inspection, No rash Extremity Exam: normal inspection, No pedal edema, No swelling Skin Exam: normal color, warm, dry, No rash Results - Labs Lab/Micro Results: Lab Results-Last 24 Hours 11/25/18 11/25/18 11/25/18 Range/Units 19:30 19:30 19:30 WBC 9.7 (4.0-10.5) K/mm3 RBC 4.81 (4.1-5.6) M/mm3 Hgb 14.6 (12.5-18.0) gm/dl Hct 42.9 (42-50) % MCV 89.2 (78-100) fl MCH 30.4 (26-32) pg MCHC 34.0 (32-36) g/dl RDW 13.4 (11.5-14.0) % Plt Count 300 (150-450) K/mm3 MPV 11.3 H (6-9.5) fl Gran % 54.4 (36.0-66.0) % Eos # (Auto) 0.53 H (0-0.5) Absolute Lymphs (auto) 2.99 (1.0-4.6) Absolute Monos (auto) 0.83 (0.0-1.3) Lymphocytes % 31.0 (24.0-44.0) % Monocytes % 8.6 (0.0-12.0) % Eosinophils % 5.5 H (0.00-5.0) % Basophils % 0.5 (0.0-0.4) % Absolute Granulocytes 5.26 (1.4-6.9) Basophils # 0.05 (0-0.4) PT 11.3 (8.83-12.87) SECONDS INR 0.97 (0.8-3.0) Sodium 139 (137-145) mmol/L Potassium 3.8 (3.5-5.1) mmol/L Chloride 101 (98-107) mmol/L Carbon Dioxide 28 (22-30) mmol/L Anion Gap 14.1 (5-15) MEQ/L BUN 13 (9-20) mg/dL Creatinine 1.16 (0.66-1.25) mg/dL Estimated GFR > 60.0 ML/MIN Glucose 113 H (74-106) mg/dL Lactic Acid (0.4-2.0) Calcium 9.4 (8.4-10.2) mg/dL Magnesium (1.6-2.3) mg/dL Total Bilirubin 0.50 (0.2-1.3) mg/dL AST 37 (17-59) U/L ALT 24 (0-50) U/L Alkaline Phosphatase 100 (38-126) U/L Troponin I (0.000-0.034) ng/mL NT-Pro-B Natriuret Pep (0-900) pg/mL Serum Total Protein 8.1 (6.3-8.2) g/dL Albumin 4.6 (3.5-5.0) g/dL Amylase 87 (30-110) U/L Lipase 19 L (23-300) U/L Urine Color (YELLOW) Urine Appearance (CLEAR) Urine pH (5-6) Ur Specific [place] (1.005-1.025) Urine Protein (Negative) Urine Ketones (NEGATIVE) Urine Blood (0-5) Jourdan/ul Urine Nitrite (NEGATIVE) Urine Bilirubin (NEGATIVE) Urine Urobilinogen (0-1) mg/dL Ur Leukocyte Esterase (NEGATIVE) Urine WBC (Auto) (0-5) /HPF Urine RBC (Auto) (0-2) /HPF U Epithel Cells (Auto) (FEW) /HPF Urine Bacteria (Auto) (NEGATIVE) /HPF Urine Mucus (Auto) (NEGATIVE) /HPF Urine Culture Reflexed (NO) Urine Glucose (NEGATIVE) mg/dL 11/25/18 11/25/18 11/25/18 Range/Units 19:50 20:00 20:20 WBC (4.0-10.5) K/mm3 RBC (4.1-5.6) M/mm3 Hgb (12.5-18.0) gm/dl Hct (42-50) % MCV (78-100) fl MCH (26-32) pg MCHC (32-36) g/dl RDW (11.5-14.0) % Plt Count (150-450) K/mm3 MPV (6-9.5) fl Gran % (36.0-66.0) % Eos # (Auto) (0-0.5) Absolute Lymphs (auto) (1.0-4.6) Absolute Monos (auto) (0.0-1.3) Lymphocytes % (24.0-44.0) % Monocytes % (0.0-12.0) % Eosinophils % (0.00-5.0) % Basophils % (0.0-0.4) % Absolute Granulocytes (1.4-6.9) Basophils # (0-0.4) PT (8.83-12.87) SECONDS INR (0.8-3.0) Sodium (137-145) mmol/L Potassium (3.5-5.1) mmol/L Chloride (98-107) mmol/L Carbon Dioxide (22-30) mmol/L Anion Gap (5-15) MEQ/L BUN (9-20) mg/dL Creatinine (0.66-1.25) mg/dL Estimated GFR ML/MIN Glucose (74-106) mg/dL Lactic Acid 1.9 (0.4-2.0) Calcium (8.4-10.2) mg/dL Magnesium 2.2 (1.6-2.3) mg/dL Total Bilirubin (0.2-1.3) mg/dL AST (17-59) U/L ALT (0-50) U/L Alkaline Phosphatase (38-126) U/L Troponin I < 0.012 (0.000-0.034) ng/mL NT-Pro-B Natriuret Pep 130 (0-900) pg/mL Serum Total Protein (6.3-8.2) g/dL Albumin (3.5-5.0) g/dL Amylase (30-110) U/L Lipase (23-300) U/L Urine Color (YELLOW) Urine Appearance (CLEAR) Urine pH (5-6) Ur Specific [place] (1.005-1.025) Urine Protein (Negative) Urine Ketones (NEGATIVE) Urine Blood (0-5) Jourdan/ul Urine Nitrite (NEGATIVE) Urine Bilirubin (NEGATIVE) Urine Urobilinogen (0-1) mg/dL Ur Leukocyte Esterase (NEGATIVE) Urine WBC (Auto) (0-5) /HPF Urine RBC (Auto) (0-2) /HPF U Epithel Cells (Auto) (FEW) /HPF Urine Bacteria (Auto) (NEGATIVE) /HPF Urine Mucus (Auto) (NEGATIVE) /HPF Urine Culture Reflexed (NO) Urine Glucose (NEGATIVE) mg/dL 11/25/18 11/25/18 11/26/18 Range/Units 20:30 23:00 01:45 WBC (4.0-10.5) K/mm3 RBC (4.1-5.6) M/mm3 Hgb (12.5-18.0) gm/dl Hct (42-50) % MCV (78-100) fl MCH (26-32) pg MCHC (32-36) g/dl RDW (11.5-14.0) % Plt Count (150-450) K/mm3 MPV (6-9.5) fl Gran % (36.0-66.0) % Eos # (Auto) (0-0.5) Absolute Lymphs (auto) (1.0-4.6) Absolute Monos (auto) (0.0-1.3) Lymphocytes % (24.0-44.0) % Monocytes % (0.0-12.0) % Eosinophils % (0.00-5.0) % Basophils % (0.0-0.4) % Absolute Granulocytes (1.4-6.9) Basophils # (0-0.4) PT (8.83-12.87) SECONDS INR (0.8-3.0) Sodium (137-145) mmol/L Potassium (3.5-5.1) mmol/L Chloride (98-107) mmol/L Carbon Dioxide (22-30) mmol/L Anion Gap (5-15) MEQ/L BUN (9-20) mg/dL Creatinine (0.66-1.25) mg/dL Estimated GFR ML/MIN Glucose (74-106) mg/dL Lactic Acid (0.4-2.0) Calcium (8.4-10.2) mg/dL Magnesium (1.6-2.3) mg/dL Total Bilirubin (0.2-1.3) mg/dL AST (17-59) U/L ALT (0-50) U/L Alkaline Phosphatase (38-126) U/L Troponin I < 0.012 < 0.012 (0.000-0.034) ng/mL NT-Pro-B Natriuret Pep (0-900) pg/mL Serum Total Protein (6.3-8.2) g/dL Albumin (3.5-5.0) g/dL Amylase (30-110) U/L Lipase (23-300) U/L Urine Color YELLOW (YELLOW) Urine Appearance CLEAR (CLEAR) Urine pH 5.0 (5-6) Ur Specific [place] 1.014 (1.005-1.025) Urine Protein NEGATIVE (Negative) Urine Ketones NEGATIVE (NEGATIVE) Urine Blood SMALL (0-5) Jourdan/ul Urine Nitrite NEGATIVE (NEGATIVE) Urine Bilirubin NEGATIVE (NEGATIVE) Urine Urobilinogen 2 (0-1) mg/dL Ur Leukocyte Esterase NEGATIVE (NEGATIVE) Urine WBC (Auto) NONE (0-5) /HPF Urine RBC (Auto) NONE (0-2) /HPF U Epithel Cells (Auto) NONE (FEW) /HPF Urine Bacteria (Auto) NONE (NEGATIVE) /HPF Urine Mucus (Auto) SLIGHT (NEGATIVE) /HPF Urine Culture Reflexed NO (NO) Urine Glucose NEGATIVE (NEGATIVE) mg/dL 11/26/18 11/26/18 Range/Units 05:05 08:10 WBC (4.0-10.5) K/mm3 RBC (4.1-5.6) M/mm3 Hgb (12.5-18.0) gm/dl Hct (42-50) % MCV (78-100) fl MCH (26-32) pg MCHC (32-36) g/dl RDW (11.5-14.0) % Plt Count (150-450) K/mm3 MPV (6-9.5) fl Gran % (36.0-66.0) % Eos # (Auto) (0-0.5) Absolute Lymphs (auto) (1.0-4.6) Absolute Monos (auto) (0.0-1.3) Lymphocytes % (24.0-44.0) % Monocytes % (0.0-12.0) % Eosinophils % (0.00-5.0) % Basophils % (0.0-0.4) % Absolute Granulocytes (1.4-6.9) Basophils # (0-0.4) PT (8.83-12.87) SECONDS INR (0.8-3.0) Sodium (137-145) mmol/L Potassium (3.5-5.1) mmol/L Chloride (98-107) mmol/L Carbon Dioxide (22-30) mmol/L Anion Gap (5-15) MEQ/L BUN (9-20) mg/dL Creatinine (0.66-1.25) mg/dL Estimated GFR ML/MIN Glucose (74-106) mg/dL Lactic Acid (0.4-2.0) Calcium (8.4-10.2) mg/dL Magnesium (1.6-2.3) mg/dL Total Bilirubin (0.2-1.3) mg/dL AST (17-59) U/L ALT (0-50) U/L Alkaline Phosphatase (38-126) U/L Troponin I < 0.012 < 0.012 (0.000-0.034) ng/mL NT-Pro-B Natriuret Pep (0-900) pg/mL Serum Total Protein (6.3-8.2) g/dL Albumin (3.5-5.0) g/dL Amylase (30-110) U/L Lipase (23-300) U/L Urine Color (YELLOW) Urine Appearance (CLEAR) Urine pH (5-6) Ur Specific [place] (1.005-1.025) Urine Protein (Negative) Urine Ketones (NEGATIVE) Urine Blood (0-5) Jourdan/ul Urine Nitrite (NEGATIVE) Urine Bilirubin (NEGATIVE) Urine Urobilinogen (0-1) mg/dL Ur Leukocyte Esterase (NEGATIVE) Urine WBC (Auto) (0-5) /HPF Urine RBC (Auto) (0-2) /HPF U Epithel Cells (Auto) (FEW) /HPF Urine Bacteria (Auto) (NEGATIVE) /HPF Urine Mucus (Auto) (NEGATIVE) /HPF Urine Culture Reflexed (NO) Urine Glucose (NEGATIVE) mg/dL - Radiology Impressions Radiology Exams & Impressions: Radiology Procedures Category Date Time Status ABDOMEN AND PELVIS W CONTRAST [CT] Stat Exams 11/25/18 19:39 Completed CHEST 1 VIEW (PORTABLE) Stat Exams 11/25/18 19:39 Completed - Other Procedures and Tests Respiratory Therapy 11/26/18 00:15 Oxygen Nasal Cannula 2 lpm 11/26/18 01:54 Respiratory Therapy Assessment DAILY 11/26/18 08:19 Peak Expiratory Flow Rate ONCE Assessment/Plan (1) COPD exacerbation Current Visit: Yes Status: Acute Assessment & Plan: start rocephin and zithromax. He is on 2L NC and does not wear O2 at home. no wheezing. Code(s): J44.1 - CHRONIC OBSTRUCTIVE PULMONARY DISEASE W (ACUTE) EXACERBATION (2) Abdominal pain Current Visit: Yes Status: Acute Qualifiers: Abdominal location: generalized Qualified Code(s): R10.84 - Generalized abdominal pain Assessment & Plan: Appears to be non-acute; he is hungry so advanced his diet to regular. CT abd/ pelvis nonacute and labs not concerning. The CT did not remark on any ascites, but the abdomen is distended. I suspect he has liver disease, particularly with pt report of esophageal varices, although his AST/ALT are normal. Will check a PT/PTT. U/S liver and gallbladder on Wednesday. I advised he may also need a repeat EGD/colonoscopy sooner than planned. Code(s): R10.9 - UNSPECIFIED ABDOMINAL PAIN (3) History of alcohol abuse Current Visit: Yes Status: Chronic Assessment & Plan: Not drinking currently. Code(s): Z87.898 - PERSONAL HISTORY OF OTHER SPECIFIED CONDITIONS
[2018-11-26] MEDS: ROCEPHIN 1 Gm-D5w 50 ml Bag** 1 G/50 ML IVPB IV SCH (13:48)
[2018-11-26] MEDS ORDERED: BENADRYL 25 MG CAPSULE PO PRN (14:43)
[2018-11-26] MEDS ORDERED: Cyclobenzaprine 10 MG PO PRN (14:43)
[2018-11-26] MEDS ORDERED: MSIR 15 MG PO SCH ×2 (15:00→22:00)
[2018-11-26] MEDS: Zithromax 500 MG/ 250 ML NaCl Premix 500 MG/250 ML IVPB IV SCH (15:12)
[2018-11-26 19:15] LABS: Hematocrit 34.9 % (42-50); Hemoglobin 11.7 gm/dl (12.5-18.0); Mean Cell Volume 90.6 fl (78-100); Mean Corpuscular Hgb Concent. 33.5 g/dl (32-36); Mean Platelet Volume 10.6 fl (6-9.5); Platelet Count 233 K/mm3 (150-450); Red Blood Count 3.85 M/mm3 (4.1-5.6); Red Cell Distribution Width 13.3 % (11.5-14.0); White Blood Count 7.2 K/mm3 (4.0-10.5)
[2018-11-26 19:21] LABS: Mean Corpuscular Hemoglobin 30.3 pg (26-32)
[2018-11-26] MEDS ORDERED: ENOXAPARIN SODIUM SQ SCH (20:00)
[2018-11-26] MEDS ORDERED: MSIR 15 MG PO PRN (22:20)
[2018-11-26] MEDS: Ms Contin 15 MG PO SCH (22:30)
[2018-11-27 06:35] LABS: BASOPHIL % 0.4 % (0.0-0.4); Basophil (Absolute #) 0.04 (0-0.4); Eosinophil % 6.2 % (0.00-5.0); Eosinophil (Absolute #) 0.55 (0-0.5); Granulocyte Absolute (ANC) 4.25 (1.4-6.9); Granulocytes % 47.7 % (36.0-66.0); Hematocrit 37.7 % (42-50); Hemoglobin 12.4 gm/dl (12.5-18.0); Lymphocyte (Absolute #) 3.03 (1.0-4.6); Mean Cell Volume 91.5 fl (78-100); Mean Corpuscular Hgb Concent. 32.9 g/dl (32-36); Mean Platelet Volume 11.4 fl (6-9.5); Monocyte (Absolute #) 1.04 (0.0-1.3); Monocytes % 11.7 % (0.0-12.0); Platelet Count 275 K/mm3 (150-450); Red Blood Count 4.12 M/mm3 (4.1-5.6); Red Cell Distribution Width 13.4 % (11.5-14.0); White Blood Count 8.9 K/mm3 (4.0-10.5)
[2018-11-27 06:47] LABS: ALBUMIN 3.8 g/dL (3.5-5.0); ALKALINE PHOSPHATASE 78 U/L (38-126); BLOOD UREA NITROGEN 11 mg/dL (9-20); CHLORIDE 107 mmol/L (98-107); Calcium 8.5 mg/dL (8.4-10.2); Carbon Dioxide 25 mmol/L (22-30); Creatinine 1 1.04 mg/dL (0.66-1.25); Glucose 82 mg/dL (74-106); SGOT/AST 27 U/L (17-59); SGPT/ALT 19 U/L (0-50); SODIUM 141 mmol/L (137-145); Total Protein 6.8 g/dL (6.3-8.2)
[2018-11-27] MEDS: DUONEB 0.5-3 MG/3 ml Neb IH SCH ×4 (08:03→19:27)
[2018-11-27] MEDS: Spiriva 18 Mcg/Cap Inhaler IH SCH (08:08)
[2018-11-27] MEDS: Sodium Chloride 0.9% 1000 ML 1,000 ML IV SCH ×2 (09:04→20:59)
[2018-11-27] MEDS: ROCEPHIN 1 Gm-D5w 50 ml Bag** 1 G/50 ML IVPB IV SCH (09:05)
[2018-11-27] MEDS: Lopressor 25MG Tab PO SCH ×2 (09:07→22:37)
[2018-11-27] MEDS: NORVASC 5 MG PO SCH (09:07)
[2018-11-27] MEDS: Ms Contin 15 MG PO SCH ×2 (09:48→22:37)
[2018-11-27] MEDS: Zithromax 500 MG/ 250 ML NaCl Premix 500 MG/250 ML IVPB IV SCH (09:59)
[2018-11-27] MEDS ORDERED: NON-FORMULARY ITEM (Omeprazole 20 Mg [Prilosec 20 Mg] 20 MG) PO SCH (10:00)
[2018-11-27] MEDS ORDERED: Protonix 40MG Tablet PO SCH (10:00)
--- NOTE | 2018-11-27 12:43 | PCM.NOTE ---
Date and Time: 11/27/18 1238 Subjective Assessment: Yesterday RN reported to me that pt had quite a bit of bright red rectal bleeding. This morning he says that a few weeks ago he had a smaller episode of bright red bleeding that he attributed to hemorrhoids. Yesterday I increased his pain medicine from morphine 15mg IR qhs to morphine 15mg ER BID, and 15mg IR QID prn. He said his back is still "sore" but the pain medicine has helped. His RUQ pain is basically gone today. He is breathing well, spitting up lots of phlegm. Having breathing tx TID to QID. He will start colonoscopy prep this afternoon and will have an EGD and colonoscopy tomorrow by Dr. Bloom. - Review of Systems Constitutional: No Fever Abdominal/Gastrointestinal: Hematochezia, No Vomiting Objective Exam General Appearance: no apparent distress, alert Neurologic Exam: oriented x 3, cooperative Skin Exam: normal color, warm, dry, No rash Respiratory Exam: diminished breath sounds (good air exchange), wheezing ( scattered expiratory), No crackles/rales, No rhonchi Cardiovascular Exam: regular rate/rhythm, normal heart sounds, No murmur Gastrointestinal/Abdomen Exam: soft, normal bowel sounds, distention, No tenderness, No guarding, No rebound Extremity Exam: No pedal edema, No swelling Back Exam: normal inspection, No rash OBJECTIVE DATA Vital Signs: Vital Signs - 24 hr Temp Pulse Resp BP Pulse Ox 11/27/18 11:42 61 18 91 L 11/27/18 11:11 98 F 58 L 20 124/70 94 L 11/27/18 08:08 54 L 18 93 L 11/27/18 07:27 97.8 F 58 L 20 122/61 97 11/27/18 04:33 98.3 F 60 22 111/65 93 L 11/27/18 00:13 98.6 F 77 20 131/68 95 11/26/18 20:05 62 20 92 L 11/26/18 19:12 98.2 F 72 20 141/73 96 11/26/18 16:07 98.2 F 60 18 109/58 95 11/26/18 16:04 58 L 18 93 L Pain Assessment - Last Documented Pain Intensity 7 Pain Scale Used 0-10 Pain Scale Intake and Output: Intake & Output 0211/26/18 11/27/18 11/28/18 11:59 11:59 11:59 11:59 Intake Total 836 4152 240 Output Total 1200 6515 Balance -364 9469 240 Weight 93 kg Lab Results: Lab Results-Last 24 Hours 11/26/18 11/27/18 11/27/18 Range/Units 19:00 05:20 05:20 WBC 7.2 8.9 (4.0-10.5) K/mm3 RBC 3.85 L 4.12 (4.1-5.6) M/mm3 Hgb 11.7 L 12.4 L (12.5-18.0) gm/dl Hct 34.9 L 37.7 L (42-50) % MCV 90.6 91.5 (78-100) fl MCH 30.3 30.0 (26-32) pg MCHC 33.5 32.9 (32-36) g/dl RDW 13.3 13.4 (11.5-14.0) % Plt Count 233 275 (150-450) K/mm3 MPV 10.6 H 11.4 H (6-9.5) fl Gran % 47.7 (36.0-66.0) % Eos # (Auto) 0.55 H (0-0.5) Absolute Lymphs (auto) 3.03 (1.0-4.6) Absolute Monos (auto) 1.04 (0.0-1.3) Lymphocytes % 34.0 (24.0-44.0) % Monocytes % 11.7 (0.0-12.0) % Eosinophils % 6.2 H (0.00-5.0) % Basophils % 0.4 (0.0-0.4) % Absolute Granulocytes 4.25 (1.4-6.9) Basophils # 0.04 (0-0.4) Sodium 141 (137-145) mmol/L Potassium 4.0 (3.5-5.1) mmol/L Chloride 107 (98-107) mmol/L Carbon Dioxide 25 (22-30) mmol/L Anion Gap 13.0 (5-15) MEQ/L BUN 11 (9-20) mg/dL Creatinine 1.04 (0.66-1.25) mg/dL Estimated GFR > 60.0 ML/MIN Glucose 82 (74-106) mg/dL Calcium 8.5 (8.4-10.2) mg/dL Total Bilirubin 0.50 (0.2-1.3) mg/dL AST 27 (17-59) U/L ALT 19 (0-50) U/L Alkaline Phosphatase 78 (38-126) U/L Serum Total Protein 6.8 (6.3-8.2) g/dL Albumin 3.8 (3.5-5.0) g/dL Radiology Exams: Radiology Procedures Category Date Time Status ABDOMEN AND PELVIS W CONTRAST [CT] Stat Exams 11/25/18 19:39 Completed CHEST 1 VIEW (PORTABLE) Stat Exams 11/25/18 19:39 Completed GALLBLADDER [US] Routine Exams 11/28/18 Ordered LIVER OR SPLEEN [US] Routine Exams 11/28/18 Ordered Assessment/Plan (1) COPD exacerbation Current Visit: Yes Status: Acute Assessment & Plan: Day #2 of IV rocephin and zithromax. Slight wheeze today but overall lung exam is good. Code(s): J44.1 - CHRONIC OBSTRUCTIVE PULMONARY DISEASE W (ACUTE) EXACERBATION (2) Abdominal pain Current Visit: Yes Status: Acute Qualifiers: Abdominal location: generalized Qualified Code(s): R10.84 - Generalized abdominal pain Assessment & Plan: much better - however he is on increased dose of morphine. Code(s): R10.9 - UNSPECIFIED ABDOMINAL PAIN (3) History of alcohol abuse Current Visit: Yes Status: Chronic Code(s): Z87.898 - PERSONAL HISTORY OF OTHER SPECIFIED CONDITIONS (4) Esophageal varices Current Visit: Yes Status: Acute Qualifiers: Esophageal varices type: unspecified type Esophageal varices bleeding: without bleeding Qualified Code(s): I85.00 - Esophageal varices without bleeding Assessment & Plan: Per pt report. Last EGD at the [facility]. Code(s): I85.00 - ESOPHAGEAL VARICES WITHOUT BLEEDING
[2018-11-27] MEDS ORDERED: Golytely Solution 4000 ML PO ONE (14:00)
[2018-11-28] MEDS: Sodium Chloride 0.9% 1000 ML 1,000 ML IV SCH (06:42)
[2018-11-28] MEDS ORDERED: Sodium Chloride 0.9% 1000 ML 1,000 ML IV SCH (07:30)
[2018-11-28 09:44] VITALS: BP 124/56; O2SAT 92
[2018-11-28] MEDS: ROCEPHIN 1 Gm-D5w 50 ml Bag** 1 G/50 ML IVPB IV SCH (09:48)
[2018-11-28] MEDS: Spiriva 18 Mcg/Cap Inhaler IH SCH (09:53)
[2018-11-28] MEDS: DUONEB 0.5-3 MG/3 ml Neb IH SCH (09:53)
--- NOTE | 2018-11-28 09:53 | XRAY ---
Indication: Right upper quadrant pain. Two-dimensional gallbladder sonogram performed. Comparison: None Gallbladder normally distended without gallstones, wall thickening, or pericholecystic fluid. Common bile duct measures 4.1 mm. No intrahepatic biliary distention. Remaining visualized portions of the liver, pancreas, and right kidney appear sonographically unremarkable. Right kidney measures 9.9 cm in length. No ascites. Impression: Negative gallbladder sonogram.
[2018-11-28 09:57] VITALS: PULSE 52
[2018-11-28] MEDS ORDERED: DIPRIVAN 200 MG/20 ML IV ONE (09:59)
[2018-11-28] MEDS ORDERED: Lopressor 50 MG PO SCH (10:00)
--- NOTE | 2018-11-28 10:58 | OP ---
SURGERY DATE/TIME: 11/28/2018 0747 PREOPERATIVE DIAGNOSIS: Rectal bleeding, observed thrombosed external hemorrhoid, active bleeding. POSTOPERATIVE DIAGNOSIS: Normal upper and lower endoscopy. PROCEDURES: 1) EGD. 2) Colonoscopy. SURGEON: Dr. Bloom. ANESTHESIA: MAC. Medications given by anesthesia department. HISTORY: The patient is a 63 year-old white male who presented to the emergency room with right flank pain. He has a long history of chronic pain syndrome for which he takes morphine on a routine basis. The patient was evaluated in the emergency room and was found to have rectal bleeding. On evaluation, he was noted to have a thrombosed external hemorrhoid which is actively bleeding. He has not had significant drop of his hemoglobin but the patient is felt the need to have endoscopic evaluation due to the presence of the pain. CT scan was essentially normal. The patient verbalized his understanding and desired to have the procedure performed. DESCRIPTION OF PROCEDURE: The patient was given the medications by the anesthesia department. He had continuous pulse oximetry, ECG monitoring, intermittent blood pressure monitoring and tidal CO2 monitoring during the examination. He was placed in the left lateral decubitus position. A bite block was placed. The flexible Olympus gastroscope was used to intubate the oropharynx. A view of the larynx was obtained and was normal. The scope was easily passed in the esophagus which was normal throughout its length. The stomach was entered and insufflated. The gastric rugal folds distended nicely with insufflation of air. The scope was passed along the greater curvature of the stomach to the antrum. The pylorus is encountered and intubated. The duodenum inspected and found to be normal. The scope is withdrawn towards the stomach. A retroflex view was obtained of the lesser curvature, fundus and cardia regions of the stomach and these appeared to be normal. The scope was then removed from the patient. Next, a digital rectal exam was performed and again was noted the aforementioned thrombosed external hemorrhoid. The anal sphincter tone was normal. There were no masses felt internally and the prostate was felt to be normal. The flexible Olympus pediatric colonoscope was used to intubate the rectum. A view of the colon was developed sequentially to the cecum. Upon insertion and withdrawal there was noted large amounts of liquid stool. We did the best we could to suction this dry but we could have easily missed small polyps, nothing large was noted however. There appeared to be no obvious pathology in the colon otherwise. The scope was removed from the patient who tolerated the procedure well and was sent back to the hospital [facility] in good condition.
[2018-11-28] MEDS ORDERED: MSIR 15 MG PO SCH (22:00)
== END 2018-11-28 10:00 | disposition home or self-care (01) ==
LOC: ED 19:02 → MED SURG 11-26 00:08
PROVIDERS: ADMIT Family Medicine; ATTEND Family Medicine
DX: K62.5 Hemorrhage of anus and rectum (principal); K64.5 Perianal venous thrombosis; Z23 Encounter for immunization
CPT/HCPCS: 36000; 36415; 43235; 45378; 71045; 74177; 76705; 80053; 81001; 82150; 83605; 83690; 83735; 83880; 84484; 85025; 85027; 85610; 87040; 93005; 94150; 94640; 94760; 96360; 96361; 96374; 99285; G0008; G0378; 90686; J0456; J0696; J1170; J2270; J2704; A9270-GY

== ENCOUNTER 2019-03-25 07:50 | Emergency (ER) | payer MEDICARE ==
[2019-03-25 08:06] VITALS: O2SAT 96
[2019-03-25] MEDS ORDERED: Zofran 4 MG/2 ML VIAL IV ONE (08:09)
[2019-03-25] MEDS ORDERED: MORPHINE SULFATE 4 MG INJ IV ONE (08:09)
[2019-03-25] MEDS ORDERED: PROTONIX 40 MG IV IV ONE ×2 (08:09→08:18)
--- NOTE | 2019-03-25 08:09 | ERPHSYRPT ---
- History of Present Illness Time Seen by Provider: 03/25/19 07:55 Historian: patient Exam Limitations: no limitations Physician History: 63 y/o white male with h/o RI presents with 2 days of chest pain and brought into ED this am because he was having abd pain. nausea but no vomiting. his biggest complaint is abd pain this am. no diarrhea. Timing/Duration: day(s) (3) Quality: fullness, pressure, tightness Abdominal Pain Onset Location: epigastric Pain Radiation: no radiation Severity of Pain-Max: mild Severity of Pain-Current: mild Modifying Factors: Improves With: nothing Associated Symptoms: chest pain (2 days ago), loss of appetite, nausea, No diaphoresis, No diarrhea, No vomiting Previous symptoms: no prior history Allergies/Adverse Reactions: Sulfa (Sulfonamide Antibiotics) Allergy (Intermediate, Verified 03/25/19 08:11) Rash ketorolac tromethamine [From Toradol] Allergy (Mild, Verified 03/25/19 08:11) Swelling nalbuphine HCl [From Nubain] Allergy (Mild, Verified 03/25/19 08:11) Swelling lorazepam [From Ativan] Adverse Reaction (Mild, Verified 03/25/19 08:11) cetirizine [From Zyrtec] Adverse Reaction (Verified 03/25/19 08:11) diphenhydramine [From Benadryl] Adverse Reaction (Verified 03/25/19 08:11) Home Medications: Amlodipine Besylate 5 mg PO DAILY 03/16/16 [History] Cyclobenzaprine HCl 10 mg [Cyclobenzaprine 10 MG] 10 mg PO TID PRN [History] Omeprazole 20 MG [Prilosec 20 mg] 20 mg PO DAILY 03/16/16 [History] Metoprolol Tartrate 25 mg [Lopressor 25MG Tab] 50 mg PO BID 08/10/17 [ History] Morphine Sulfate Ir 15 mg [Msir 15 mg] 15 mg PO HS 03/10/18 [History] Celecoxib [Celebrex] 100 mg PO DAILY 11/25/18 [History] Diphenhydramine HCl 25 mg [Benadryl 25 mg Capsule] 100 mg PO HS PRN PRN [History] Hx Tetanus, Diphtheria Vaccination/Date Given: Yes Hx Influenza Vaccination/Date Given: No Hx Pneumococcal Vaccination/Date Given: No - Review of Systems Constitutional: No Symptoms Eyes: No Symptoms Ears, Nose, & Throat: No Symptoms Respiratory: No Symptoms Cardiac: Chest Pain (for 2 days none now) Abdominal/Gastrointestinal: Abdominal Pain, Nausea, Vomiting, No Diarrhea Genitourinary Symptoms: No Symptoms Musculoskeletal: No Symptoms Skin: No Symptoms Neurological: No Symptoms Psychological: No Symptoms Endocrine: No Symptoms Hematologic/Lymphatic: No Symptoms Immunological/Allergic: No Symptoms All Other Systems: Reviewed and Negative - Past Medical History Pertinent Past Medical History: Yes Neurological History: Migraines ENT History: No Pertinent History Cardiac History: Hypertension, Myocardial Infarction (RI) Respiratory History: Asthma, COPD Endocrine Medical History: No Pertinent History Musculoskeletal History: Arthritis, Other GI Medical History: GERD, Other History: Other Psycho-Social History: No Pertinent History Male Reproductive Disorders: No Pertinent History Other Medical History: HEART BURN. Hx: ACUTE RENAL FAILURE. Chronic pain syndrome- back disks. Skin cancer on nose - Past Surgical History Past Surgical History: Yes Neuro Surgical History: No Pertinent History Cardiac: Cardiac Catheterization Respiratory: No Pertinent History Gastrointestinal: No Pertinent History Genitourinary: No Pertinent History Musculoskeletal: Orthopedic Surgery Male Surgical History: No Pertinent History Other Surgical History: neck, back lucía shoulders, lower back - Social History Smoking Status: Current every day smoker How long have you smoked: 40 years Exposure to second hand smoke: No Drug Use: none Patient Lives Alone: No - Nursing Vital Signs Nursing Vital Signs: Initial Vital Signs Pulse Rate 95 H 03/25/19 07:59 Respiratory Rate 18 03/25/19 07:59 Blood Pressure 106/76 03/25/19 07:59 O2 Sat by Pulse Oximetry 96 03/25/19 07:59 Pain Scale Pain Intensity 8 - Physical Exam General Appearance: mild distress, alert, anxiety Eye Exam: PERRL/EOMI, eyes nml inspection Ears, Nose, Throat Exam: normal ENT inspection, moist mucous membranes Neck Exam: normal inspection, non-tender, supple, full range of motion Respiratory Exam: normal breath sounds, lungs clear, airway intact, No chest tenderness, No respiratory distress Cardiovascular Exam: regular rate/rhythm, normal heart sounds, normal peripheral pulses Gastrointestinal/Abdomen Exam: tenderness (mild diffuse), No guarding, No rebound Rectal Exam: not done Back Exam: normal inspection, normal range of motion, No CVA tenderness, No vertebral tenderness Extremity Exam: normal inspection, normal range of motion, pelvis stable Neurologic Exam: alert, oriented x 3, cooperative, 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 new nonspecific ekg changes.) Ordered Tests: Active Orders 24 hr Category Date Time Status EKG-ER Only STAT Care 03/25/19 08:09 Active IV Insertion STAT Care 03/25/19 08:09 Active ABDOMEN AND PELVIS W/0 CONTRAS [CT] Stat Exams 03/25/19 08:10 Taken AMYLASE Stat Lab 03/25/19 08:09 Completed CBC W DIFF Stat Lab 03/25/19 08:09 Completed CMP Stat Lab 03/25/19 08:09 Completed LIPASE Stat Lab 03/25/19 08:09 Completed Lactic Acid Stat Lab 03/25/19 08:09 Completed Lactic Acid Stat Lab 03/25/19 11:25 Completed PROTIME WITH INR Stat Lab 03/25/19 08:09 Completed TROPONIN Q3H Lab 03/25/19 08:15 Completed TROPONIN Q3H Lab 03/25/19 11:25 Completed TROPONIN Q3H Lab 03/25/19 14:15 Ordered TROPONIN Q3H Lab 03/25/19 17:15 Ordered TROPONIN Q3H Lab 03/25/19 20:15 Ordered TROPONIN Q3H Lab 03/25/19 23:15 Ordered UA W/RFX UR CULTURE Stat Lab 03/25/19 09:48 Completed Medication Summary Generic Name Dose Route Start Last Admin Trade Name Freq PRN Reason Stop Dose Admin Sodium Chloride 1,000 mls @ 50 mls/hr 03/25/19 08:15 03/25/19 08:25 Sodium Chloride 0.9% 1000 Ml IV 04/24/19 08:14 50 mls/hr .Q20H NII Administration Discontinued Medications Generic Name Dose Route Start Last Admin Trade Name Freq PRN Reason Stop Dose Admin Lorazepam 1 mg 03/25/19 10:05 03/25/19 10:18 Ativan 2 Mg/1 Ml Vial IV 03/25/19 10:06 1 mg STAT ONE Administration Lorazepam Confirm 03/25/19 10:16 Ativan 2 Mg/1 Ml Vial Administered 03/25/19 10:17 Dose 2 mg .ROUTE .STK-MED ONE Morphine Sulfate 4 mg 03/25/19 08:09 03/25/19 08:24 Morphine Sulfate 4 Mg Inj IV 03/25/19 08:10 4 mg STAT ONE Administration Morphine Sulfate Confirm 03/25/19 08:19 Morphine Sulfate 4 Mg Inj Administered 03/25/19 08:20 Dose 4 mg .ROUTE .STK-MED ONE Ondansetron HCl 4 mg 03/25/19 08:09 03/25/19 08:25 Zofran 4 Mg/2 Ml Vial IV 03/25/19 08:10 4 mg STAT ONE Administration Ondansetron HCl Confirm 03/25/19 08:18 Zofran 4 Mg/2 Ml Vial Administered 03/25/19 08:19 Dose 4 mg .ROUTE .STK-MED ONE Pantoprazole Sodium 40 mg 03/25/19 08:09 03/25/19 08:24 Protonix 40 Mg Iv IV 03/25/19 08:10 40 mg STAT ONE Administration Pantoprazole Sodium Confirm 03/25/19 08:18 Protonix 40 Mg Iv Administered 03/25/19 08:19 Dose 40 mg IV .STK-MED ONE Lab/Rad Data: Laboratory Result Diagrams 03/25/19 08:09 03/25/19 08:09 Laboratory Results 03/25/19 03/25/19 03/25/19 Range/Units 11:25 11:25 09:48 WBC (4.0-10.5) K/mm3 RBC (4.1-5.6) M/mm3 Hgb (12.5-18.0) gm/dl Hct (42-50) % MCV (78-100) fl MCH (26-32) pg MCHC (32-36) g/dl RDW (11.5-14.0) % Plt Count (150-450) K/mm3 MPV (6-9.5) fl Gran % (36.0-66.0) % Eos # (Auto) (0-0.5) Absolute Lymphs (auto) (1.0-4.6) Absolute Monos (auto) (0.0-1.3) Lymphocytes % (24.0-44.0) % Monocytes % (0.0-12.0) % Eosinophils % (0.00-5.0) % Basophils % (0.0-0.4) % Absolute Granulocytes (1.4-6.9) Basophils # (0-0.4) PT (8.83-12.87) SECONDS INR (0.8-3.0) Sodium (137-145) mmol/L Potassium (3.5-5.1) mmol/L Chloride (98-107) mmol/L Carbon Dioxide (22-30) mmol/L Anion Gap (5-15) MEQ/L BUN (9-20) mg/dL Creatinine (0.66-1.25) mg/dL Estimated GFR ML/MIN Glucose (74-106) mg/dL Lactic Acid 0.9 (0.4-2.0) Calcium (8.4-10.2) mg/dL Total Bilirubin (0.2-1.3) mg/dL AST (17-59) U/L ALT (0-50) U/L Alkaline Phosphatase (38-126) U/L Troponin I < 0.012 (0.000-0.034) ng/mL Serum Total Protein (6.3-8.2) g/dL Albumin (3.5-5.0) g/dL Amylase (30-110) U/L Lipase (23-300) U/L Urine Color YELLOW (YELLOW) Urine Appearance CLEAR (CLEAR) Urine pH 6.0 (5-6) Ur Specific [place] 1.009 (1.005-1.025) Urine Protein NEGATIVE (Negative) Urine Ketones NEGATIVE (NEGATIVE) Urine Blood SMALL (0-5) Jourdan/ul Urine Nitrite NEGATIVE (NEGATIVE) Urine Bilirubin NEGATIVE (NEGATIVE) Urine Urobilinogen NEGATIVE (0-1) mg/dL Ur Leukocyte Esterase NEGATIVE (NEGATIVE) Urine WBC (Auto) NONE (0-5) /HPF Urine RBC (Auto) NONE (0-2) /HPF U Epithel Cells (Auto) NONE (FEW) /HPF Urine Bacteria (Auto) NONE SEEN (NEGATIVE) /HPF Urine Culture Reflexed NO (NO) Urine Glucose NEGATIVE (NEGATIVE) mg/dL 03/25/19 03/25/19 03/25/19 Range/Units 08:15 08:09 08:09 WBC (4.0-10.5) K/mm3 RBC (4.1-5.6) M/mm3 Hgb (12.5-18.0) gm/dl Hct (42-50) % MCV (78-100) fl MCH (26-32) pg MCHC (32-36) g/dl RDW (11.5-14.0) % Plt Count (150-450) K/mm3 MPV (6-9.5) fl Gran % (36.0-66.0) % Eos # (Auto) (0-0.5) Absolute Lymphs (auto) (1.0-4.6) Absolute Monos (auto) (0.0-1.3) Lymphocytes % (24.0-44.0) % Monocytes % (0.0-12.0) % Eosinophils % (0.00-5.0) % Basophils % (0.0-0.4) % Absolute Granulocytes (1.4-6.9) Basophils # (0-0.4) PT 12.1 (8.83-12.87) SECONDS INR 1.07 (0.8-3.0) Sodium 137 (137-145) mmol/L Potassium 4.0 (3.5-5.1) mmol/L Chloride 102 (98-107) mmol/L Carbon Dioxide 24 (22-30) mmol/L Anion Gap 15.1 H (5-15) MEQ/L BUN 14 (9-20) mg/dL Creatinine 1.53 H (0.66-1.25) mg/dL Estimated GFR 49.1 ML/MIN Glucose 154 H (74-106) mg/dL Lactic Acid (0.4-2.0) Calcium 9.2 (8.4-10.2) mg/dL Total Bilirubin 0.50 (0.2-1.3) mg/dL AST 28 (17-59) U/L ALT 28 (0-50) U/L Alkaline Phosphatase 67 (38-126) U/L Troponin I < 0.012 (0.000-0.034) ng/mL Serum Total Protein 7.3 (6.3-8.2) g/dL Albumin 4.0 (3.5-5.0) g/dL Amylase 112 H (30-110) U/L Lipase 50 (23-300) U/L Urine Color (YELLOW) Urine Appearance (CLEAR) Urine pH (5-6) Ur Specific [place] (1.005-1.025) Urine Protein (Negative) Urine Ketones (NEGATIVE) Urine Blood (0-5) Jourdan/ul Urine Nitrite (NEGATIVE) Urine Bilirubin (NEGATIVE) Urine Urobilinogen (0-1) mg/dL Ur Leukocyte Esterase (NEGATIVE) Urine WBC (Auto) (0-5) /HPF Urine RBC (Auto) (0-2) /HPF U Epithel Cells (Auto) (FEW) /HPF Urine Bacteria (Auto) (NEGATIVE) /HPF Urine Culture Reflexed (NO) Urine Glucose (NEGATIVE) mg/dL 03/25/19 03/25/19 Range/Units 08:09 08:09 WBC 10.9 H (4.0-10.5) K/mm3 RBC 4.73 (4.1-5.6) M/mm3 Hgb 14.5 (12.5-18.0) gm/dl Hct 42.4 (42-50) % MCV 89.6 (78-100) fl MCH 30.7 (26-32) pg MCHC 34.2 (32-36) g/dl RDW 13.7 (11.5-14.0) % Plt Count 256 (150-450) K/mm3 MPV 11.2 H (6-9.5) fl Gran % 68.5 H (36.0-66.0) % Eos # (Auto) 0.23 (0-0.5) Absolute Lymphs (auto) 2.51 (1.0-4.6) Absolute Monos (auto) 0.64 (0.0-1.3) Lymphocytes % 23.1 L (24.0-44.0) % Monocytes % 5.9 (0.0-12.0) % Eosinophils % 2.1 (0.00-5.0) % Basophils % 0.4 (0.0-0.4) % Absolute Granulocytes 7.45 H (1.4-6.9) Basophils # 0.04 (0-0.4) PT (8.83-12.87) SECONDS INR (0.8-3.0) Sodium (137-145) mmol/L Potassium (3.5-5.1) mmol/L Chloride (98-107) mmol/L Carbon Dioxide (22-30) mmol/L Anion Gap (5-15) MEQ/L BUN (9-20) mg/dL Creatinine (0.66-1.25) mg/dL Estimated GFR ML/MIN Glucose (74-106) mg/dL Lactic Acid 2.1 H (0.4-2.0) Calcium (8.4-10.2) mg/dL Total Bilirubin (0.2-1.3) mg/dL AST (17-59) U/L ALT (0-50) U/L Alkaline Phosphatase (38-126) U/L Troponin I (0.000-0.034) ng/mL Serum Total Protein (6.3-8.2) g/dL Albumin (3.5-5.0) g/dL Amylase (30-110) U/L Lipase (23-300) U/L Urine Color (YELLOW) Urine Appearance (CLEAR) Urine pH (5-6) Ur Specific [place] (1.005-1.025) Urine Protein (Negative) Urine Ketones (NEGATIVE) Urine Blood (0-5) Jourdan/ul Urine Nitrite (NEGATIVE) Urine Bilirubin (NEGATIVE) Urine Urobilinogen (0-1) mg/dL Ur Leukocyte Esterase (NEGATIVE) Urine WBC (Auto) (0-5) /HPF Urine RBC (Auto) (0-2) /HPF U Epithel Cells (Auto) (FEW) /HPF Urine Bacteria (Auto) (NEGATIVE) /HPF Urine Culture Reflexed (NO) Urine Glucose (NEGATIVE) mg/dL - Progress Progress: improved, re-examined Progress Note: 03/25/19 10:02 ct abd/pelvis-fecal stasis; no other sig findings. Counseled pt/family regarding: lab results, diagnosis, need for follow-up, rad results - Departure Departure Disposition: Home Clinical Impression: Chest pain, Abdominal pain, Constipation Condition: Stable Critical Care Time: No Referrals: MYNOR SCHULTE [Primary Care Provider] - Additional Instructions: drink plenty of fluids. increase activity. may use over the counter enemas, suppositories, milk of magnesia and/or magnesium citrate for constipation. follow up with primary doctor for further management
[2019-03-25] MEDS ORDERED: Sodium Chloride 0.9% 1000 ML 1,000 ML IV SCH (08:15)
[2019-03-25 08:18] LABS: BASOPHIL % 0.4 % (0.0-0.4); Basophil (Absolute #) 0.04 (0-0.4); Eosinophil % 2.1 % (0.00-5.0); Eosinophil (Absolute #) 0.23 (0-0.5); Granulocyte Absolute (ANC) 7.45 (1.4-6.9); Granulocytes % 68.5 % (36.0-66.0); Hematocrit 42.4 % (42-50); Hemoglobin 14.5 gm/dl (12.5-18.0); Lymphocyte (Absolute #) 2.51 (1.0-4.6); Lymphocytes % 23.1 % (24.0-44.0); Mean Cell Volume 89.6 fl (78-100); Mean Corpuscular Hemoglobin 30.7 pg (26-32); Mean Corpuscular Hgb Concent. 34.2 g/dl (32-36); Mean Platelet Volume 11.2 fl (6-9.5); Monocyte (Absolute #) 0.64 (0.0-1.3); Monocytes % 5.9 % (0.0-12.0); Platelet Count 256 K/mm3 (150-450); Red Blood Count 4.73 M/mm3 (4.1-5.6); Red Cell Distribution Width 13.7 % (11.5-14.0); White Blood Count 10.9 K/mm3 (4.0-10.5)
[2019-03-25] MEDS ORDERED: Zofran 4 MG/2 ML VIAL ONE (08:18)
[2019-03-25] MEDS ORDERED: MORPHINE SULFATE 4 MG INJ ONE (08:19)
[2019-03-25] MEDS ORDERED: Sodium Chloride 0.9% 1000 ML 1,000 ML ONE (08:19)
[2019-03-25 08:26] LABS: INR 1.07 (0.8-3.0); PROTIME 12.1 SECONDS (8.83-12.87)
[2019-03-25 08:31] LABS: ANION GAP 15.1 MEQ/L (5-15); BILIRUBIN,TOTAL 0.5 mg/dL (0.2-1.3); Calcium 9.2 mg/dL (8.4-10.2); Creatinine 1 1.53 mg/dL (0.66-1.25); Total Protein 7.3 g/dL (6.3-8.2)
[2019-03-25 08:37] LABS: Lactic Acid 2.1 (0.4-2.0)
[2019-03-25 09:59] LABS: Bacteria NONE SEEN /HPF (NEGATIVE)
[2019-03-25 10:03] LABS: Appearance CLEAR (CLEAR); Bilirubin NEGATIVE (NEGATIVE); Blood SMALL Ery/ul (0-5); Glucose NEGATIVE (NEGATIVE); Ketones NEGATIVE (NEGATIVE); Leukocyte Esterase NEGATIVE (NEGATIVE); Nitrite NEGATIVE (NEGATIVE); Protein,Urine Dip NEGATIVE (Negative); Specific Gravity 1.009 (1.005-1.025); Urobilinogen NEGATIVE mg/dL (0-1)
[2019-03-25] MEDS ORDERED: Ativan 2 MG/1 ML VIAL IV ONE (10:05)
[2019-03-25] MEDS ORDERED: Ativan 2 MG/1 ML VIAL ONE (10:16)
[2019-03-25 12:30] VITALS: BP 112/72; PULSE 72
--- NOTE | 2019-03-25 15:14 | XRAY ---
Indication: Abdomen pain, nausea, and vomiting. Multiple contiguous axial images obtained through the abdomen and pelvis without contrast as ordered. Comparison: November 25, 2018. Lung bases demonstrate stable left base calcified pleural plaquing. No infiltrate or effusion. Heart is not enlarged. New small hiatal hernia. Noncontrasted stomach and bowel loops appear nonobstructed normal appendix. Again mild diffuse scattered colonic fecal debris, less than before. No free fluid/air. Remaining liver, gallbladder, pancreas, spleen, adrenal glands, kidneys, ureters, and bladder appear unremarkable for noncontrast exam. Stable mild aortoiliac calcifications without AAA. Osseous structures intact again with mild degenerative changes throughout the spine and right L5 hemilaminectomy. Stable small fatty left inguinal hernia. Impression: 1. Again mild fecal stasis without obstruction. 2. New small hiatal hernia. 3. Stable left lung base calcified pleural plaquing and small fatty left inguinal hernia. Comment: Preliminary interpretation was made by [facility]. No critical discrepancy. CTDI 22.00
== END 2019-03-25 12:46 | disposition home or self-care (01) ==
LOC: ED 07:50
DX: R07.9 Chest pain, unspecified (principal); R10.9 Unspecified abdominal pain; K59.00 Constipation, unspecified; M19.90 Unspecified osteoarthritis, unspecified site; K21.9 Gastro-esophageal reflux disease without esophagitis; G89.4 Chronic pain syndrome; I10 Essential (primary) hypertension; J44.9 Chronic obstructive pulmonary disease, unspecified; J45.909 Unspecified asthma, uncomplicated; Z72.0 Tobacco use
CPT/HCPCS: 36000; 36415; 74176; 80053; 81001; 82150; 83605; 83690; 84484; 85025; 85610; 93005; 96360; 96361; 96374; 96375; 99284; J2060; J2270; J2405

== ENCOUNTER 2019-06-13 05:10 | Emergency (ER) | payer OTHER, MEDICARE ==
--- NOTE | 2019-06-13 05:34 | ERPHSYRPT ---
<JUAN BLOOM - Last Filed: 06/13/19 07:42> - History of Present Illness Historian: patient Exam Limitations: no limitations Physician History: Patient has had chest pressure with intermittent dyspnea for 5 hours. Symptoms occurred at rest while laying in bed. Patient has no prior history of DVT in extremities or chest in the past. Timing/Duration: hour(s) (5) Activities at Onset: none Quality: pressure Location: central Chest Pain Radiation: no radiation Severity of Pain-Max: severe Severity of Pain-Current: severe Modifying Factors: Improves With: nothing Associated Symptoms: shortness of breath, No nausea, No vomiting, No palpitations, No heartburn, No abdominal pain, No cough, No hurts to breathe, No diaphoresis, No chills, No fever, No fatigue, No weakness, No swelling/lump in chest, No syncope, No rash, No headache, No dizziness, No edema, No back pain Prior Chest Pain/Cardiac Workup: angina, cardiac cath, heart attack Nitro Today/Relief: 0.4 mg x 1 Aspirin Treatment Today: no aspirin today Allergies/Adverse Reactions: Sulfa (Sulfonamide Antibiotics) Allergy (Intermediate, Verified 06/13/19 05:31) Rash ketorolac tromethamine [From Toradol] Allergy (Mild, Verified 06/13/19 05:31) Swelling nalbuphine HCl [From Nubain] Allergy (Mild, Verified 06/13/19 05:31) Swelling Home Medications: Amlodipine Besylate 5 mg PO DAILY 03/16/16 [History] Cyclobenzaprine HCl 10 mg [Cyclobenzaprine 10 MG] 10 mg PO TID PRN [History] Omeprazole 20 MG [Prilosec 20 mg] 20 mg PO DAILY 03/16/16 [History] Metoprolol Tartrate 25 mg [Lopressor 25MG Tab] 50 mg PO BID 08/10/17 [ History] Morphine Sulfate Ir 15 mg [Msir 15 mg] 15 mg PO HS 03/10/18 [History] Celecoxib [Celebrex] 100 mg PO DAILY 11/25/18 [History] Diphenhydramine HCl 25 mg [Benadryl 25 mg Capsule] 100 mg PO HS PRN PRN [History] Hx Tetanus, Diphtheria Vaccination/Date Given: Yes Hx Influenza Vaccination/Date Given: No Hx Pneumococcal Vaccination/Date Given: No - Review of Systems Constitutional: No Fever, No Chills Eyes: No Symptoms, No Eye Pain Ears, Nose, & Throat: No Symptoms, No Nose Congestion, No Throat Pain Respiratory: Dyspnea, No Cough Cardiac: Chest Pain, No Edema, No Palpitations, No Syncope Abdominal/Gastrointestinal: No Abdominal Pain, No Nausea, No Vomiting, No Diarrhea Genitourinary Symptoms: No Hematuria, No Flank Pain Musculoskeletal: No Back Pain, No Neck Pain Skin: No Rash Neurological: No Dizziness, No Focal Weakness, No Sensory Changes Psychological: No Symptoms Endocrine: No Symptoms Hematologic/Lymphatic: No Easy Bleeding, No Easy Bruising All Other Systems: Reviewed and Negative - Past Medical History Pertinent Past Medical History: Yes Neurological History: Migraines ENT History: No Pertinent History Cardiac History: Hypertension, Myocardial Infarction ([place]) Respiratory History: Asthma, COPD Endocrine Medical History: No Pertinent History Musculoskeletal History: Arthritis, Other GI Medical History: GERD, Other History: Other Psycho-Social History: No Pertinent History Male Reproductive Disorders: No Pertinent History Other Medical History: HEART BURN. Hx: ACUTE RENAL FAILURE. Chronic pain syndrome- back disks. Skin cancer on nose - Past Surgical History Past Surgical History: Yes Neuro Surgical History: No Pertinent History Cardiac: Cardiac Catheterization Respiratory: No Pertinent History Gastrointestinal: No Pertinent History Genitourinary: No Pertinent History Musculoskeletal: Orthopedic Surgery Male Surgical History: No Pertinent History Other Surgical History: neck, back lucía shoulders, lower back - Social History Smoking Status: Current every day smoker How long have you smoked: 40 years Exposure to second hand smoke: No Drug Use: none Patient Lives Alone: No - Nursing Vital Signs Nursing Vital Signs: Initial Vital Signs Pulse Rate 49 L 06/13/19 05:23 Respiratory Rate 17 06/13/19 05:23 Blood Pressure 172/90 06/13/19 05:23 O2 Sat by Pulse Oximetry 99 06/13/19 05:23 Pain Scale Pain Intensity 4 - Physical Exam General Appearance: no apparent distress, alert Eye Exam: PERRL/EOMI, eyes nml inspection Ears, Nose, Throat Exam: normal ENT inspection, pharynx normal, moist mucous membranes Neck Exam: normal inspection, non-tender, supple, full range of motion Respiratory Exam: normal breath sounds, lungs clear, airway intact, diminished breath sounds, No respiratory distress, No accessory muscle use, No prolonged expirations, No crackles/rales, No rhonchi, No wheezing Cardiovascular Exam: regular rate/rhythm, normal heart sounds, normal peripheral pulses Gastrointestinal/Abdomen Exam: soft, No tenderness, No mass Back Exam: normal inspection, No CVA tenderness, No vertebral tenderness Extremity Exam: normal inspection, normal range of motion, No calf tenderness, No pedal edema, No swelling Neurologic Exam: alert, oriented x 3, cooperative, normal mood/affect, sensation nml, No motor deficits Skin Exam: normal color, warm, dry, No jaundice, No cyanosis - Course Nursing assessment & vital signs reviewed: Yes EKG Interpreted by Me: RATE, Sinus Bony (47bpm; ), NORMAL AXIS, NORMAL INTERVALS, NORMAL ST-T, Other (no acute changes in comparison to EKG from 2018) - Radiology Exams Chest X-ray Interpretation: Interpreted by me, Reviewed by me, No Pneumonia, No Pneumothorax, Nml Heart Size, No Infiltrates, Nml Mediastinum Ordered Tests: Active Orders 24 hr Category Date Time Status Skoog Operator STAT Care 06/13/19 05:36 Active EKG-ER Only STAT Care 06/13/19 05:35 Active IV Insertion STAT Care 06/13/19 05:35 Active CHEST 1 VIEW (PORTABLE) Stat Exams 06/13/19 05:36 Taken CBC W DIFF Stat Lab 06/13/19 05:43 Completed CK-Creatinine Phosphokinase Stat Lab 06/13/19 05:43 Completed CMP Stat Lab 06/13/19 05:43 Completed NT PRO BNP Stat Lab 06/13/19 05:43 Completed PROTIME WITH INR Stat Lab 06/13/19 05:43 Completed PTT Stat Lab 06/13/19 05:43 Completed TROPONIN Q3H Lab 06/13/19 05:43 Completed TROPONIN Q3H Lab 06/13/19 08:51 Received TROPONIN Q3H Lab 06/13/19 11:45 Ordered TROPONIN Q3H Lab 06/13/19 14:45 Ordered TROPONIN Q3H Lab 06/13/19 17:45 Ordered VENOUS BLOOD GAS Stat Lab 06/13/19 05:43 Completed Medication Summary Discontinued Medications Generic Name Dose Route Start Last Admin Trade Name Freq PRN Reason Stop Dose Admin Aspirin 324 mg 06/13/19 05:35 06/13/19 05:41 Baby Aspirin 81 Mg Chew PO 06/13/19 05:36 324 mg STAT ONE Administration Aspirin Confirm 06/13/19 05:42 Baby Aspirin 81 Mg Chew Administered 06/13/19 05:43 Dose 324 mg .ROUTE .STK-MED ONE Metoprolol Tartrate 25 mg 06/13/19 05:35 06/13/19 05:44 Lopressor 25mg Tab PO 06/13/19 05:36 25 mg STAT ONE Administration Metoprolol Tartrate Confirm 06/13/19 05:42 Lopressor 25mg Tab Administered 06/13/19 05:43 Dose 25 mg .ROUTE .STK-MED ONE Nitroglycerin 0.4 mg 06/13/19 05:35 06/13/19 05:41 Nitrostat 0.4 Mg (Ed) SL 06/13/19 05:36 0.4 mg STAT ONE Administration Nitroglycerin Confirm 06/13/19 05:42 Nitrostat 0.4 Mg (Ed) Administered 06/13/19 05:43 Dose 0.4 mg SL .STK-MED ONE Lab/Rad Data: Laboratory Result Diagrams 06/13/19 05:43 06/13/19 05:43 Laboratory Results 06/13/19 06/13/19 06/13/19 Range/Units 05:43 05:43 05:43 WBC (4.0-10.5) K/mm3 RBC (4.1-5.6) M/mm3 Hgb (12.5-18.0) gm/dl Hct (42-50) % MCV (78-100) fl MCH (26-32) pg MCHC (32-36) g/dl RDW (11.5-14.0) % Plt Count (150-450) K/mm3 MPV (6-9.5) fl Gran % (36.0-66.0) % Eos # (Auto) (0-0.5) Absolute Lymphs (auto) (1.0-4.6) Absolute Monos (auto) (0.0-1.3) Lymphocytes % (24.0-44.0) % Monocytes % (0.0-12.0) % Eosinophils % (0.00-5.0) % Basophils % (0.0-0.4) % Absolute Granulocytes (1.4-6.9) Basophils # (0-0.4) PT 10.8 (8.83-12.87) SECONDS INR 0.96 (0.8-3.0) APTT 31.0 (24.1-36.1) SECONDS pO2/FiO2 Ratio 21.0 % VBG pH 7.44 H (7.32-7.42) VBG pCO2 at Pat Temp 38 L (42-55) mm/Hg VBG pO2 at Pat Temp 43 H (25-40) mm/Hg VBG HCO3 25.8 (22-28) meq/L VBG O2 Sat (Facundo) 86.4 L (95-100) VBG Base Excess 1.7 (-2.0-2.0) VBG Hemoglobin 15.0 VBG Carboxyhemoglobin 5.3 (0.0-6.9) % T HGB POC Potassium 3.7 (3.5-5.1) Sodium (137-145) mmol/L Potassium (3.5-5.1) mmol/L Chloride (98-107) mmol/L Carbon Dioxide (22-30) mmol/L Anion Gap (5-15) MEQ/L BUN (9-20) mg/dL Creatinine (0.66-1.25) mg/dL Estimated GFR ML/MIN Glucose (74-106) mg/dL Calcium (8.4-10.2) mg/dL Total Bilirubin (0.2-1.3) mg/dL AST (17-59) U/L ALT (0-50) U/L Alkaline Phosphatase (38-126) U/L Creatine Kinase (55-170) U/L Troponin I < 0.012 (0.000-0.034) ng/mL NT-Pro-B Natriuret Pep (0-900) pg/mL Serum Total Protein (6.3-8.2) g/dL Albumin (3.5-5.0) g/dL 06/13/19 06/13/19 Range/Units 05:43 05:43 WBC 9.1 (4.0-10.5) K/mm3 RBC 4.58 (4.1-5.6) M/mm3 Hgb 14.5 (12.5-18.0) gm/dl Hct 42.1 (42-50) % MCV 91.9 (78-100) fl MCH 31.7 (26-32) pg MCHC 34.4 (32-36) g/dl RDW 12.9 (11.5-14.0) % Plt Count 328 (150-450) K/mm3 MPV 10.9 H (6-9.5) fl Gran % 57.3 (36.0-66.0) % Eos # (Auto) 0.35 (0-0.5) Absolute Lymphs (auto) 2.74 (1.0-4.6) Absolute Monos (auto) 0.70 (0.0-1.3) Lymphocytes % 30.2 (24.0-44.0) % Monocytes % 7.7 (0.0-12.0) % Eosinophils % 3.9 (0.00-5.0) % Basophils % 0.9 (0.0-0.4) % Absolute Granulocytes 5.19 (1.4-6.9) Basophils # 0.08 (0-0.4) PT (8.83-12.87) SECONDS INR (0.8-3.0) APTT (24.1-36.1) SECONDS pO2/FiO2 Ratio % VBG pH (7.32-7.42) VBG pCO2 at Pat Temp (42-55) mm/Hg VBG pO2 at Pat Temp (25-40) mm/Hg VBG HCO3 (22-28) meq/L VBG O2 Sat (Facundo) (95-100) VBG Base Excess (-2.0-2.0) VBG Hemoglobin VBG Carboxyhemoglobin (0.0-6.9) % T HGB POC Potassium (3.5-5.1) Sodium 139 (137-145) mmol/L Potassium 3.9 (3.5-5.1) mmol/L Chloride 106 (98-107) mmol/L Carbon Dioxide 26 (22-30) mmol/L Anion Gap 10.4 (5-15) MEQ/L BUN 9 (9-20) mg/dL Creatinine 0.96 (0.66-1.25) mg/dL Estimated GFR > 60.0 ML/MIN Glucose 123 H (74-106) mg/dL Calcium 9.4 (8.4-10.2) mg/dL Total Bilirubin 0.20 (0.2-1.3) mg/dL AST 35 (17-59) U/L ALT 21 (0-50) U/L Alkaline Phosphatase 74 (38-126) U/L Creatine Kinase 38 L (55-170) U/L Troponin I (0.000-0.034) ng/mL NT-Pro-B Natriuret Pep 73.9 (0-900) pg/mL Serum Total Protein 7.3 (6.3-8.2) g/dL Albumin 4.1 (3.5-5.0) g/dL - Progress Progress: improved, re-examined Air Movement: good Progress Note: 06/13/19 06:27 Patient feels much better; Sinus bradycardia on the monitor. Patient denies any chest pain or dyspnea at this time. 06/13/19 07:45 Due to potential delay in transfer to [facility] in [place], [place] awaiting hospitalist to call back, patient's care was transferred to Dr Servin, ED attending physician, to determine final disposition of the patient. 06/13/19 07:59 Patient is chest pain free. HEART score is 4, ANDREW score of 3, making patient having a 12-16% risk of MACE in the next 6 weeks Blood Culture(s) Obtained: No Antibiotics given: No Counseled pt/family regarding: lab results, diagnosis, need for follow-up, rad results - Departure Departure Disposition: Transfer Clinical Impression: Chest pain Qualifiers: Chest pain type: unspecified Qualified Code(s): R07.9 - Chest pain, unspecified Hypertension Qualifiers: Hypertension type: essential hypertension Qualified Code(s): I10 - Essential ( primary) hypertension Condition: Stable Critical Care Time: No Referrals: MYNOR SCHULTE [Primary Care Provider] - <ANA SERVIN - Last Filed: 06/13/19 09:20> - Progress Progress Note: Visited patient, discussed history of present C/O and plan - awaiting transfer to [facility] - [place] had previously advised that patient could go wherever he wants. Awaiting call back from [facility] and "appropriate doctor" per RN. Discussed with Dr. Bloom. 06/13/19 08:38 Discussed with : Other (Dr Gallagher/Mimi/Rincon) Will see patient in: hospital (observation) ([facility] - OBS - Chest Pain R /O [place]) - Departure Departure Disposition: Transfer Critical Care Time: No Critical Care Time(excluding separately billable procedures): Critical 30-74 mins
[2019-06-13] MEDS ORDERED: BABY ASPIRIN 81 MG CHEW PO ONE (05:35)
[2019-06-13] MEDS ORDERED: Lopressor 25MG Tab PO ONE (05:35)
[2019-06-13] MEDS ORDERED: Nitrostat 0.4 MG (ED) SL ONE ×2 (05:35→05:42)
[2019-06-13] MEDS ORDERED: BABY ASPIRIN 81 MG CHEW ONE (05:42)
[2019-06-13] MEDS ORDERED: Lopressor 25MG Tab ONE (05:42)
[2019-06-13 05:48] LABS: VBG BASE EXCESS 1.7 (-2.0-2.0); VBG CARBOXYHEMOGLOBIN 5.3 % T HGB (0.0-6.9); VBG HCO3- 25.8 meq/L (22-28); VBG O2 SATURATION 86.4 (95-100); VBG POTASSIUM 3.7 (3.5-5.1); VBG pH 7.44 (7.32-7.42)
[2019-06-13 05:49] LABS: BASOPHIL % 0.9 % (0.0-0.4); Basophil (Absolute #) 0.08 (0-0.4); Eosinophil % 3.9 % (0.00-5.0); Eosinophil (Absolute #) 0.35 (0-0.5); Granulocyte Absolute (ANC) 5.19 (1.4-6.9); Granulocytes % 57.3 % (36.0-66.0); Hematocrit 42.1 % (42-50); Hemoglobin 14.5 gm/dl (12.5-18.0); Lymphocyte (Absolute #) 2.74 (1.0-4.6); Lymphocytes % 30.2 % (24.0-44.0); Mean Cell Volume 91.9 fl (78-100); Mean Corpuscular Hemoglobin 31.7 pg (26-32); Mean Corpuscular Hgb Concent. 34.4 g/dl (32-36); Mean Platelet Volume 10.9 fl (6-9.5); Monocytes % 7.7 % (0.0-12.0); Platelet Count 328 K/mm3 (150-450); Red Blood Count 4.58 M/mm3 (4.1-5.6); Red Cell Distribution Width 12.9 % (11.5-14.0); White Blood Count 9.1 K/mm3 (4.0-10.5)
[2019-06-13 05:54] LABS: INR 0.96 (0.8-3.0); PROTIME 10.8 SECONDS (8.83-12.87)
[2019-06-13 06:07] LABS: ALBUMIN 4.1 g/dL (3.5-5.0); ALKALINE PHOSPHATASE 74 U/L (38-126); ANION GAP 10.4 MEQ/L (5-15); BLOOD UREA NITROGEN 9 mg/dL (9-20); CHLORIDE 106 mmol/L (98-107); CK-Creatinine Phosphokinase 38 U/L (55-170); Calcium 9.4 mg/dL (8.4-10.2); Carbon Dioxide 26 mmol/L (22-30); Creatinine 1 0.96 mg/dL (0.66-1.25); Glucose 123 mg/dL (74-106); NT PRO BNP 73.9 pg/mL (0-900); Potassium 3.9 mmol/L (3.5-5.1); SGOT/AST 35 U/L (17-59); SGPT/ALT 21 U/L (0-50); SODIUM 139 mmol/L (137-145); Total Protein 7.3 g/dL (6.3-8.2)
--- NOTE | 2019-06-13 09:19 | XRAY ---
Indication: Chest pain/pressure and short of breath. Comparison: November 25, 2018. Portable chest remains clear. Heart is not enlarged. Bony thorax intact again with minimal degenerative changes and partially visualized lower cervical fusion. No new/acute findings.
[2019-06-13 09:47] VITALS: BP 137/83; PULSE 45; O2SAT 97
== END 2019-06-13 10:15 | disposition short-term general hospital (02) ==
LOC: ED 05:10
DX: R07.9 Chest pain, unspecified (principal); I10 Essential (primary) hypertension
CPT/HCPCS: 36000; 36415; 71045; 80053; 82550; 82805; 83880; 84484; 85025; 85610; 85730; 93005; 93041; 99284; 99285; 99291; A9270-GY

== ENCOUNTER 2020-11-06 13:35 | Emergency (ER) | payer MEDICARE ==
[2020-11-06 13:50] VITALS: BP 210/108
[2020-11-06] MEDS ORDERED: Zofran 4 MG/2 ML VIAL ONE (14:45)
[2020-11-06] MEDS ORDERED: Sodium Chloride 0.9% 1000 ML 1,000 ML ONE (14:45)
[2020-11-06] MEDS ORDERED: MORPHINE SULFATE 4 MG INJ ONE (14:45)
[2020-11-06] MEDS: Sodium Chloride 0.9% 1000 ML 1,000 ML IV STA (14:47)
[2020-11-06] MEDS: MORPHINE SULFATE 4 MG INJ IV ONE (14:47)
[2020-11-06] MEDS: Zofran 4 MG/2 ML VIAL IV ONE (14:47)
--- NOTE | 2020-11-06 14:51 | ERPHSYRPT ---
- History of Present Illness Time Seen by Provider: 11/06/20 13:52 Historian: patient Exam Limitations: no limitations Patient Subjective Stated Complaint: pt here for pain to abd , he states he has only had a small bm in a week, took a laxitive last night Triage Nursing Assessment: pt arrived per wc, alert, moaning out in pain, holding abd, abd distended, resp easy, skin w/d/p Physician History: 65 years old male presented in the ER with chief complaint of sudden onset generalized abdominal pain almost 2 hours ago moderate to severe intensity sharp in nature, nonradiating, aggravated with palpation movements/ambulation and no significant relieving factors, associated with nausea and multiple episodes of nonprojectile, nonbilious vomiting with no hematemesis. Patient also report having constipation and minimal bowel movements for almost 1 week. He has taken a laxative last night with no significant relief. Patient also report having abdominal distention. No fever chills cough/shortness of breath or sick contact reported. Timing/Duration: hour(s) (2), gradual onset, worse Activities at Onset: rest Quality: sharpness Abdominal Pain Onset Location: generalized abdomen Pain Radiation: no radiation Severity of Pain-Max: severe Severity of Pain-Current: severe Modifying Factors: Worsens With: coughing, movement, palpation Associated Symptoms: nausea, vomiting Allergies/Adverse Reactions: Sulfa (Sulfonamide Antibiotics) Allergy (Intermediate, Verified 11/06/20 13:50) Rash ketorolac tromethamine [From Toradol] Allergy (Mild, Verified 11/06/20 13:50) Swelling nalbuphine HCl [From Nubain] Allergy (Mild, Verified 11/06/20 13:50) Swelling Home Medications: Cyclobenzaprine HCl 10 mg [Cyclobenzaprine 10 MG] 10 mg PO TID PRN 03/16/16 [History] Omeprazole 20 MG [Prilosec 20 mg] 20 mg PO DAILY 03/16/16 [History] Diphenhydramine HCl 25 mg [Benadryl 25 mg Capsule] 100 mg PO HS PRN PRN 11/26/18 [History] Oxycodone / APAP 10/325 mg [Oxycodone-Acetaminophen 10-325] 1 ea TID 11/06/20 [History] Hx Tetanus, Diphtheria Vaccination/Date Given: Yes Hx Influenza Vaccination/Date Given: No Hx Pneumococcal Vaccination/Date Given: No Travel Risk - International Travel Have you traveled outside of the country in past 3 weeks: No - Coronavirus Screening Close contact with a COVID-19 positive Pt in past 14-21 Days: No - Review of Systems Constitutional: No Symptoms Eyes: No Symptoms Ears, Nose, & Throat: No Symptoms Respiratory: No Symptoms Cardiac: No Symptoms Abdominal/Gastrointestinal: Abdominal Pain, Nausea, Vomiting, Constipation Genitourinary Symptoms: No Symptoms Musculoskeletal: Back Pain Skin: No Symptoms Neurological: No Symptoms Psychological: No Symptoms Endocrine: No Symptoms Hematologic/Lymphatic: No Symptoms Immunological/Allergic: No Symptoms - Past Medical History Pertinent Past Medical History: Yes Neurological History: Migraines ENT History: No Pertinent History Cardiac History: Hypertension, Myocardial Infarction ([place]) Respiratory History: Asthma, COPD Endocrine Medical History: No Pertinent History Musculoskeletal History: Arthritis, Other GI Medical History: GERD, Other History: Other Psycho-Social History: No Pertinent History Male Reproductive Disorders: No Pertinent History Other Medical History: HEART BURN. Hx: ACUTE RENAL FAILURE. Chronic pain syndrome- back disks. Skin cancer on nose - Past Surgical History Past Surgical History: Yes Neuro Surgical History: No Pertinent History Cardiac: Cardiac Catheterization Respiratory: No Pertinent History Gastrointestinal: No Pertinent History Genitourinary: No Pertinent History Musculoskeletal: Orthopedic Surgery Male Surgical History: No Pertinent History Other Surgical History: neck, back lucía shoulders, lower back - Social History Smoking Status: Current every day smoker How long have you smoked: 40 years Exposure to second hand smoke: No Drug Use: none Patient Lives Alone: No - Nursing Vital Signs Nursing Vital Signs: Initial Vital Signs Temperature 97.1 F 11/06/20 13:44 Pulse Rate 96 H 11/06/20 13:44 Respiratory Rate 18 11/06/20 13:44 Blood Pressure 210/108 11/06/20 13:44 O2 Sat by Pulse Oximetry 97 11/06/20 13:44 Pain Scale Pain Intensity 9 - Physical Exam General Appearance: no apparent distress, alert Eye Exam: PERRL/EOMI, eyes nml inspection Ears, Nose, Throat Exam: normal ENT inspection, pharynx normal Neck Exam: normal inspection, supple, full range of motion Respiratory Exam: normal breath sounds, lungs clear Cardiovascular Exam: regular rate/rhythm, normal heart sounds Gastrointestinal/Abdomen Exam: soft, normal bowel sounds, tenderness (Generalized), distention, guarding Back Exam: normal inspection Neurologic Exam: alert, oriented x 3, cooperative Skin Exam: normal color SpO2 Interpretation: normal SpO2: 97 O2 Delivery: Room Air Ordered Tests: Active Orders 24 hr Category Date Time Status IV Insertion STAT Care 11/06/20 14:09 Active NPO (ED) STAT Care 11/06/20 14:09 Active ABDOMEN AND PELVIS W CONTRAST [CT] Stat Exams 11/06/20 15:05 Completed AMYLASE Stat Lab 11/06/20 15:30 Completed CBC W DIFF Stat Lab 11/06/20 15:30 Completed CMP Stat Lab 11/06/20 15:30 Completed LIPASE Stat Lab 11/06/20 15:30 Completed UA W/RFX UR CULTURE Stat Lab 11/06/20 14:09 Ordered Medication Summary Discontinued Medications Generic Name Dose Route Start Last Admin Trade Name Freq PRN Reason Stop Dose Admin Sodium Chloride 1,000 mls @ 999 mls/hr 11/06/20 14:09 11/06/20 16:00 Sodium Chloride 0.9% 1000 Ml IV 11/06/20 15:09 Infused .Q1H1M STA Infusion Sodium Chloride Confirm 11/06/20 14:45 Sodium Chloride 0.9% 1000 Ml Administered 11/06/20 14:46 Dose 1,000 mls @ ud .ROUTE .STK-MED ONE Morphine Sulfate 4 mg 11/06/20 14:09 11/06/20 14:47 Morphine Sulfate 4 Mg Inj IV 11/06/20 14:10 4 mg STAT ONE Administration Morphine Sulfate Confirm 11/06/20 14:45 Morphine Sulfate 4 Mg Inj Administered 11/06/20 14:46 Dose 4 mg .ROUTE .STK-MED ONE Ondansetron HCl 4 mg 11/06/20 14:09 11/06/20 14:47 Zofran 4 Mg/2 Ml Vial IV 11/06/20 14:10 4 mg STAT ONE Administration Ondansetron HCl Confirm 11/06/20 14:45 Zofran 4 Mg/2 Ml Vial Administered 11/06/20 14:46 Dose 4 mg .ROUTE .STK-MED ONE Lab/Rad Data: Laboratory Result Diagrams 11/06/20 15:30 11/06/20 15:30 Laboratory Results 11/06/20 11/06/20 Range/Units 15:30 15:30 WBC 12.9 H (4.0-10.5) K/mm3 RBC 4.98 (4.1-5.6) M/mm3 Hgb 15.0 (12.5-18.0) gm/dl Hct 44.8 (42-50) % MCV 90.0 (78-100) fl MCH 30.1 (26-32) pg MCHC 33.5 (32-36) g/dl RDW 12.8 (11.5-14.0) % Plt Count 311 (150-450) K/mm3 MPV 10.5 (7.5-11.0) fl Gran % 83.7 H (36.0-66.0) % Eos # (Auto) 0.10 (0-0.5) Absolute Lymphs (auto) 1.43 (1.0-4.6) Absolute Monos (auto) 0.54 (0.0-1.3) Lymphocytes % 11.1 L (24.0-44.0) % Monocytes % 4.2 (0.0-12.0) % Eosinophils % 0.8 (0.00-5.0) % Basophils % 0.2 (0.0-0.4) % Absolute Granulocytes 10.84 H (1.4-6.9) Basophils # 0.02 (0-0.4) Sodium 129 L (137-145) mmol/L Potassium 4.4 (3.5-5.1) mmol/L Chloride 97 L (98-107) mmol/L Carbon Dioxide 22 (22-30) mmol/L Anion Gap 13.6 (5-15) MEQ/L BUN 20 (9-20) mg/dL Creatinine 1.28 H (0.66-1.25) mg/dL Estimated GFR 59.9 ML/MIN Glucose 167 H (74-106) mg/dL Calcium 9.1 (8.4-10.2) mg/dL Total Bilirubin 0.60 (0.2-1.3) mg/dL AST 28 (17-59) U/L ALT 19 (0-50) U/L Alkaline Phosphatase 76 (38-126) U/L Serum Total Protein 6.9 (6.3-8.2) g/dL Albumin 3.8 (3.5-5.0) g/dL Amylase 75 (30-110) U/L Lipase 50 (23-300) U/L - Progress Progress: improved, re-examined Progress Note: 11/06/20 16:42 65 years old is evaluated for abdominal pain with vomiting. Patient has one episode of vomiting while in the ER, given Zofran and nausea and vomiting are improved. His abdominal pain is also better and did have a good bowel movement while in the ER. Patient on reevaluation feeling better. He has a white count of 12, mildly low sodium and given fluid bolus. Has mild NATALYA. CT did not show any obstruction, pancreatitis or any other acute finding but has fecal stasis c onsistent with constipation. Patient is offered observation admission which she refused. Patient is also offered to have enema while in the ER but he does not want it here. Patient states he has laxative at home and will take that. I recommended using MiraLAX and stool softener regularly and outpatient follow-up. Discussed signs symptoms of worsening needing return to ER which he seems understanding. Counseled pt/family regarding: lab results, diagnosis, need for follow-up, rad results, smoking cessation - Departure Departure Disposition: Home Clinical Impression: Abdominal pain Qualifiers: Abdominal location: generalized Qualified Code(s): R10.84 - Generalized abdominal pain Constipation Qualifiers: Constipation type: unspecified constipation type Qualified Code(s): K59.00 - Constipation, unspecified Condition: Stable Critical Care Time: No Referrals: MYNOR SCHULTE [Primary Care Provider] - (1-2 days for reevaluation) Instructions: Constipation in Adults, Acute Abdomen (Belly Pain), Adult (DC) Additional Instructions: Drink plenty of fluids. Take pain medications only as needed as this may increase your constipation problem. Take MiraLAX and stool softener regularly. Follow-up with primary care physician for reevaluation in the next couple of days. Return to ER for worsening abdominal pain/vomiting/fever chills etc. Prescriptions: Ondansetron ODT 4 MG [Zofran Odt 4 mg] 4 mg PO Q6H PRN PRN #10 tab.rapdis PRN Reason: Vomiting Docusate Sodium 100 mg [Colace 100 MG] 100 mg PO BID 30 Days #60 cap Polyethylene Glycol 3350 [Miralax] 17 gm PO DAILY 10 Days #510 powder
--- NOTE | 2020-11-06 15:33 | XRAY ---
Indication: Abdomen pain. Nausea, vomiting, and distention. Constipation. Multiple contiguous axial images obtained through the abdomen and pelvis using 80 cc Isovue 370 contrast. Comparison: March 25, 2019. Lung bases demonstrate stable left base calcified pleural plaquing. Mild right lung base dependent atelectasis. No infiltrate or effusion. Heart is not enlarged. Noncontrasted stomach and bowel loops appear nonobstructed. Normal appendix. There is worsening moderate diffuse scattered colonic fecal debris including rectum. No free fluid/air. Remaining liver, gallbladder, pancreas, spleen, adrenal glands, kidneys, ureters, and bladder appear unremarkable. Stable mild aortoiliac calcifications. No AAA or pathologic retroperitoneal lymphadenopathy. Osseous structures intact again with mild degenerative changes throughout the thoracolumbar spine and right L5 hemilaminectomy. Stable small fatty left inguinal hernia. Impression: 1. Worsening diffuse fecal stasis throughout. 2. Again incidental left lung base calcified pleural plaquing, small fatty left inguinal hernia, and chronic bony findings. 3. Remaining CT abdomen/pelvis with contrast exam is negative.
[2020-11-06 15:42] LABS: Absolute Neutrophil Ct (ANC) 10.84 (1.4-6.9); BASOPHIL % 0.2 % (0.0-0.4); Basophil (Absolute #) 0.02 (0-0.4); Eosinophil % 0.8 % (0.00-5.0); Hematocrit 44.8 % (42-50); Lymphocyte (Absolute #) 1.43 (1.0-4.6); Lymphocytes % 11.1 % (24.0-44.0); Mean Corpuscular Hemoglobin 30.1 pg (26-32); Mean Corpuscular Hgb Concent. 33.5 g/dl (32-36); Mean Platelet Volume 10.5 fl (7.5-11.0); Monocyte (Absolute #) 0.54 (0.0-1.3); Monocytes % 4.2 % (0.0-12.0); Neutrophil % 83.7 % (36.0-66.0); Platelet Count 311 K/mm3 (150-450); Red Blood Count 4.98 M/mm3 (4.1-5.6); Red Cell Distribution Width 12.8 % (11.5-14.0); White Blood Count 12.9 K/mm3 (4.0-10.5)
[2020-11-06 15:51] LABS: ALBUMIN 3.8 g/dL (3.5-5.0); ANION GAP 13.6 MEQ/L (5-15); BILIRUBIN,TOTAL 0.6 mg/dL (0.2-1.3); Calcium 9.1 mg/dL (8.4-10.2); Creatinine 1 1.28 mg/dL (0.66-1.25); EST GLOMERULAR FILTRATION RATE 59.9 ML/MIN; Potassium 4.4 mmol/L (3.5-5.1); Total Protein 6.9 g/dL (6.3-8.2)
[2020-11-06 17:19] VITALS: PULSE 78; O2SAT 98
== END 2020-11-06 17:20 | disposition home or self-care (01) ==
LOC: ED 13:35
DX: R10.84 Generalized abdominal pain (principal); R11.2 Nausea with vomiting, unspecified; K59.00 Constipation, unspecified; I10 Essential (primary) hypertension; I25.2 Old myocardial infarction; F17.200 Nicotine dependence, unspecified, uncomplicated; Z79.899 Other long term (current) drug therapy
CPT/HCPCS: 36000; 36415; 74177; 80053; 82150; 83690; 85025; 96374; 96375; 99284; J2270; J2405

== ENCOUNTER 2022-03-22 14:09 | Emergency (ER) | payer MEDICARE, OTHER ==
[2022-03-22 14:58] VITALS: BP 122/68; PULSE 93; O2SAT 97
[2022-03-22] MEDS ORDERED: Augmentin 875-125 Tablet PO ONE (15:56)
[2022-03-22] MEDS ORDERED: Augmentin 875-125 Tablet ONE (15:58)
--- NOTE | 2022-03-22 16:00 | ERPHSYRPT ---
- History of Present Illness Time Seen by Provider: 03/22/22 14:26 Source: patient Exam Limitations: no limitations Patient Subjective Stated Complaint: PT HERE FOR RIGHT EARACHE FOR 3-4 DAYS NOW, Triage Nursing Assessment: PT ALERT, RESP EASY, SKIN W/D/P, NO DRAINAGE FROM EAR Physician History: 66 years old male with history of hypertension, hyperlipidemia, GERD, chronic pain presented in the ER with right earache for the last 3 to 4 days with progressively worsening, persistent, sharp shooting/throbbing without any significant aggravating or relieving factors and pain in front of the ear as well. Denies any discharge. No difficulty swallowing. No fever or chills reported. Timing/Duration: abrupt onset, persistent, days (4) Severity: moderate, severe ENT Location: ear (R) Prearrival Treatment: over the counter meds, prescription meds Modifying Factors: Improves With: nothing Associated Symptoms: ear pain (R), facial pain/swelling, swollen glands, No change in hearing Allergies/Adverse Reactions: Sulfa (Sulfonamide Antibiotics) Allergy (Intermediate, Verified 03/22/22 14:58) Rash ketorolac tromethamine [From Toradol] Allergy (Mild, Verified 03/22/22 14:58) Swelling nalbuphine HCl [From Nubain] Allergy (Mild, Verified 03/22/22 14:58) Swelling Home Medications: Cyclobenzaprine HCl 10 mg [Cyclobenzaprine 10 MG] 10 mg PO TID PRN 03/16/16 [History] Omeprazole 20 MG [Prilosec 20 mg] 20 mg PO DAILY 03/16/16 [History] Diphenhydramine HCl 25 mg [Benadryl 25 mg Capsule] 100 mg PO HS PRN PRN 11/26/18 [History] Oxycodone / APAP 10/325 mg [Oxycodone-Acetaminophen 10-325] 1 ea TID 11/06/20 [History] Hx Tetanus, Diphtheria Vaccination/Date Given: Yes Hx Influenza Vaccination/Date Given: No Hx Pneumococcal Vaccination/Date Given: No Immunizations Up to Date: Yes Travel Risk - International Travel Have you traveled outside of the country in past 3 weeks: No - Coronavirus Screening Are you exhibiting any of the following symptoms?: No - Vaccine Status Have you recieved a Covid-19 vaccination: Yes 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[employer] - Vaccination Dates Date of 2cond Vaccination (if applicable): 2020 - Review of Systems Constitutional: No Symptoms Eyes: No Symptoms Ears, Nose, & Throat: Ear Pain Respiratory: No Symptoms Cardiac: No Symptoms Abdominal/Gastrointestinal: No Symptoms Genitourinary Symptoms: No Symptoms Musculoskeletal: Arthralgias, Back Pain Skin: No Symptoms Neurological: No Symptoms Psychological: No Symptoms Endocrine: No Symptoms - Past Medical History Pertinent Past Medical History: Yes Neurological History: Migraines ENT History: No Pertinent History Cardiac History: Hypertension, Myocardial Infarction ([place]) Respiratory History: Asthma, COPD Endocrine Medical History: No Pertinent History Musculoskeletal History: Arthritis, Other GI Medical History: GERD, Other History: Other Psycho-Social History: No Pertinent History Male Reproductive Disorders: No Pertinent History Other Medical History: HEART BURN. Hx: ACUTE RENAL FAILURE. Chronic pain syndrome- back disks. Skin cancer on nose - Past Surgical History Past Surgical History: Yes Neuro Surgical History: No Pertinent History Cardiac: Cardiac Catheterization Respiratory: No Pertinent History Gastrointestinal: No Pertinent History Genitourinary: No Pertinent History Musculoskeletal: Orthopedic Surgery Male Surgical History: No Pertinent History Other Surgical History: neck, back lucía shoulders, lower back - Social History Smoking Status: Current every day smoker How long have you smoked: 40 years Exposure to second hand smoke: No Drug Use: none Patient Lives Alone: No - Nursing Vital Signs Nursing Vital Signs: Initial Vital Signs Temperature 99.5 F 03/22/22 14:55 Pulse Rate 93 H 03/22/22 14:55 Respiratory Rate 18 03/22/22 14:55 Blood Pressure 122/68 03/22/22 14:55 O2 Sat by Pulse Oximetry 97 03/22/22 14:55 Pain Scale Pain Intensity 6 - Physical Exam General Appearance: no apparent distress, alert Eye Exam: bilateral eye: normal inspection, PERRL, EOMI Ear Exam: right ear: TM dull, left ear: TM normal, bilateral ear: auricle normal, canal normal Nasal Exam: normal inspection Throat Exam: normal, pharynx normal Neck Exam: normal inspection, non-tender, supple, full range of motion, lymphadenopathy (R) Cardiovascular/Respiratory Exam: normal breath sounds, regular rate/rhythm Neurologic Exam: alert, oriented x 3, cooperative, 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 Outpatient follow-up for reevaluation. Counseled pt/family regarding: diagnosis, need for follow-up - Departure Departure Disposition: Home Clinical Impression: Acute otitis media Condition: Stable Critical Care Time: No Referrals: MYNOR SCHULTE [Primary Care Provider] - Follow up/PCP as directed (1-2 days for reevaluation) Instructions: Ear Infections (Otitis Media) in Children (DC) Additional Instructions: Take pain medications which you have as needed. Follow-up with primary care for reevaluation. Return to ER for worsening pain, ear discharge, fever chills etc. Prescriptions: Amox Tr/Potass Clav. 875 mg [Augmentin 875-125 Tablet] 875 mg PO BID #19 tablet
== END 2022-03-22 16:35 | disposition home or self-care (01) ==
LOC: ED 14:09
DX: H66.91 Otitis media, unspecified, right ear (principal); H92.01 Otalgia, right ear; I10 Essential (primary) hypertension; E78.5 Hyperlipidemia, unspecified; J44.9 Chronic obstructive pulmonary disease, unspecified; Z72.0 Tobacco use; Z79.891 Long term (current) use of opiate analgesic; Z79.899 Other long term (current) drug therapy
CPT/HCPCS: 99283; A9270-GY

== ENCOUNTER 2022-04-03 12:15 | Inpatient (IN) | payer MEDICARE ==
[2022-04-03] MEDS ORDERED: PROTONIX 40 MG IV IV ONE ×2 (12:23→12:35)
[2022-04-03] MEDS ORDERED: Zofran 4 MG/2 ML VIAL IV ONE (12:23)
[2022-04-03] MEDS ORDERED: Sodium Chloride 0.9% 1000 ML 1,000 ML IV STA ×2 (12:23→13:34)
--- NOTE | 2022-04-03 12:23 | ERPHSYRPT ---
- History of Present Illness Time Seen by Provider: 04/03/22 12:20 Historian: patient, EMS Exam Limitations: clinical condition Physician History: This is a 66-year-old white male patient of Dr. Bloom who was brought into the emergency department by EMS after several episodes of vomiting. Last evening patient ate chicken wings. Patient is also on Augmentin for treatment of an ear infection that was diagnosed on 03/22/2022 in our emergency department. Patient states that he woke up feeling well this morning. However, his came home and found him with multiple episodes of vomiting and diarrhea. Patient does have a history of acute renal failure in the past. He has a history of hypertension, coronary artery disease, hyperlipidemia, gastroesophageal reflux disease and chronic pain issues on oxycodone. He is a current daily smoker of cigarettes. Timing/Duration: today Activities at Onset: none Abdominal Pain Onset Location: generalized abdomen Severity of Pain-Max: moderate Severity of Pain-Current: moderate Modifying Factors: Improves With: vomiting, other (Diarrhea) Associated Symptoms: diarrhea, nausea, vomiting Previous symptoms: no prior history Allergies/Adverse Reactions: Sulfa (Sulfonamide Antibiotics) Allergy (Intermediate, Verified 03/22/22 14:58) Rash ketorolac tromethamine [From Toradol] Allergy (Mild, Verified 03/22/22 14:58) Swelling nalbuphine HCl [From Nubain] Allergy (Mild, Verified 03/22/22 14:58) Swelling Home Medications: Cyclobenzaprine HCl 10 mg [Cyclobenzaprine 10 MG] 10 mg PO TID PRN 03/16/16 [History] Omeprazole 20 MG [Prilosec 20 mg] 20 mg PO DAILY 03/16/16 [History] Diphenhydramine HCl 25 mg [Benadryl 25 mg Capsule] 100 mg PO HS PRN PRN 11/26/18 [History] Oxycodone / APAP 10/325 mg [Oxycodone-Acetaminophen 10-325] 1 ea TID 11/06/20 [History] Hx Tetanus, Diphtheria Vaccination/Date Given: Yes Hx Influenza Vaccination/Date Given: No Hx Pneumococcal Vaccination/Date Given: No Travel Risk - Vaccine Status Have you recieved a Covid-19 vaccination: Yes 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 Hx: ACUTE RENAL FAILURE. Chronic pain syndrome- back disks. Skin cancer on nose - Past Surgical History Past Surgical History: Yes Neuro Surgical History: No Pertinent History Cardiac: Cardiac Catheterization Respiratory: No Pertinent History Gastrointestinal: No Pertinent History Genitourinary: No Pertinent History Musculoskeletal: Orthopedic Surgery Male Surgical History: No Pertinent History Other Surgical History: neck, back lucía shoulders, lower back - Social History Smoking Status: Current every day smoker How long have you smoked: 40 years Exposure to second hand smoke: No Drug Use: none Patient Lives Alone: No - Nursing Vital Signs Nursing Vital Signs: Initial Vital Signs Temperature 97.8 F 04/03/22 12:16 Pulse Rate 90 04/03/22 12:16 Respiratory Rate 20 04/03/22 12:16 Blood Pressure 132/72 04/03/22 12:16 O2 Sat by Pulse Oximetry 97 04/03/22 12:16 Pain Scale Pain Intensity 4 - Course Nursing assessment & vital signs reviewed: Yes EKG Interpreted by Me: RATE (97), Sinus Rhythm, NORMAL AXIS, prolonged QT interval (Borderline), NORMAL QRS, NORMAL ST-T, Other (No acute ischemic changes on today's EKG) Ordered Tests: Active Orders 24 hr Category Date Time Status EKG-ER Only STAT Care 04/03/22 12:27 Active IV Insertion STAT Care 04/03/22 12:23 Active ABDOMEN AND PELVIS W/0 CONTRAS [CT] Stat Exams 04/03/22 12:23 Completed AMYLASE Stat Lab 04/03/22 14:15 Completed BLOOD CULTURE Stat Lab 04/03/22 14:15 Received CBC W DIFF Stat Lab 04/03/22 14:15 Completed CMP Stat Lab 04/03/22 14:15 Completed LIPASE Stat Lab 04/03/22 14:15 Completed Lactic Acid Stat Lab 04/03/22 14:08 Completed Gilmer Screen Stat Lab 04/03/22 14:15 Completed TROPONIN Q3H Lab 04/03/22 14:15 Completed TROPONIN Q3H Lab 04/03/22 15:30 Ordered TROPONIN Q3H Lab 04/03/22 18:30 Ordered TROPONIN Q3H Lab 04/03/22 21:30 Ordered TROPONIN Q3H Lab 04/04/22 00:30 Ordered UA W/RFX CULTURE Stat Lab 04/03/22 Results Transfer Order Routine Transfer 04/03/22 Ordered Medication Summary Generic Name Dose Route Start Last Admin Trade Name Teodoro PRN Reason Stop Dose Admin Sodium Chloride 1,000 mls @ 250 mls/hr 04/03/22 15:15 Sodium Chloride 0.9% 1000 Ml IV 05/03/22 15:14 .Q4H NII Meropenem 1 gm/ Sodium 100 mls @ 200 mls/hr 04/03/22 15:13 Chloride IV 04/03/22 15:42 STAT ONE Metronidazole 500 mg in 100 mls @ 200 mls/hr 04/03/22 15:19 Flagyl 500 Mg Ivpb IV 04/03/22 15:48 STAT STA Discontinued Medications Generic Name Dose Route Start Last Admin Trade Name Teodoro PRN Reason Stop Dose Admin Hydromorphone HCl 1 mg 04/03/22 13:45 04/03/22 13:49 Hydromorphone 1 Mg/1ml Inj 1 Mg/Ml Syringe IV 04/03/22 13:46 1 mg STAT ONE Administration Hydromorphone HCl Confirm 04/03/22 13:48 Hydromorphone 1 Mg/1ml Inj 1 Mg/Ml Syringe Administered 04/03/22 13:49 Dose 1 mg .ROUTE .STK-MED ONE Sodium Chloride 1,000 mls @ 999 mls/hr 04/03/22 12:23 04/03/22 13:59 Sodium Chloride 0.9% 1000 Ml IV 04/03/22 13:23 Infused .Q1H1M STA Infusion Sodium Chloride Confirm 04/03/22 12:35 Sodium Chloride 0.9% 1000 Ml Administered 04/03/22 12:36 Dose 1,000 mls @ ud .ROUTE .STK-MED ONE Sodium Chloride 1,000 mls @ 999 mls/hr 04/03/22 13:34 04/03/22 13:49 Sodium Chloride 0.9% 1000 Ml IV 04/03/22 14:34 999 mls/hr .Q1H1M STA Administration Sodium Chloride Confirm 04/03/22 13:48 Sodium Chloride 0.9% 1000 Ml Administered 04/03/22 13:49 Dose 1,000 mls @ ud .ROUTE .STK-MED ONE Ondansetron HCl 4 mg 04/03/22 12:23 04/03/22 12:38 Ondansetron Hcl 4 Mg/2 Ml Vial IV 04/03/22 12:24 4 mg STAT ONE Administration Ondansetron HCl Confirm 04/03/22 12:35 Ondansetron Hcl 4 Mg/2 Ml Vial Administered 04/03/22 12:36 Dose 4 mg .ROUTE .STK-MED ONE Pantoprazole Sodium 40 mg 04/03/22 12:23 04/03/22 12:38 Pantoprazole 40 Mg Vial IV 04/03/22 12:24 40 mg STAT ONE Administration Pantoprazole Sodium Confirm 04/03/22 12:35 Pantoprazole 40 Mg Vial Administered 04/03/22 12:36 Dose 40 mg IV .STK-MED ONE Lab/Rad Data: Laboratory Result Diagrams 04/03/22 14:15 04/03/22 14:15 Laboratory Results 04/03/22 04/03/22 04/03/22 Range/Units Unknown 14:15 14:15 WBC (4.0-10.5) x10^3/uL RBC (4.1-5.6) x10^6/uL Hgb (12.5-18.0) g/dL Hct (42-50) % MCV (78-100) fL MCH (26-32) pg MCHC (32-36) g/dL RDW (11.5-14.0) % Plt Count (150-450) x10^3/uL MPV (7.5-11.0) fL Gran % (36.0-66.0) % Immature Gran % (Auto) (0.00-0.4) % Nucleat RBC Rel Count (0.00-0.1) % Eos # (Auto) (0-0.5) x10^3/uL Immature Gran # (Auto) (0.00-0.03) x10^3u/L Absolute Lymphs (auto) (1.0-4.6) x10^3/uL Absolute Monos (auto) (0.0-1.3) x10^3/uL Absolute Nucleated RBC (0.00-0.01) x10^3u/L Lymphocytes % (24.0-44.0) % Monocytes % (0.0-12.0) % Eosinophils % (0.00-5.0) % Basophils % (0.0-0.4) % Absolute Granulocytes (1.4-6.9) x10^3/uL Basophils # (0-0.4) x10^3/uL Sodium (137-145) mmol/L Potassium (3.5-5.1) mmol/L Chloride (98-107) mmol/L Carbon Dioxide (22-30) mmol/L Anion Gap (5-15) MEQ/L BUN (9-20) mg/dL Creatinine (0.66-1.25) mg/dL Estimated GFR ML/MIN Glucose (74-106) mg/dL Lactic Acid (0.4-2.0) Calcium (8.4-10.2) mg/dL Total Bilirubin (0.2-1.3) mg/dL AST (17-59) U/L ALT (0-50) U/L Alkaline Phosphatase (38-126) U/L Troponin I (0.000-0.034) ng/mL Serum Total Protein (6.3-8.2) g/dL Albumin (3.5-5.0) g/dL Amylase (30-110) U/L Lipase (23-300) U/L Urinalys Dipstick Clnc Pending Urine Color YELLOW (YELLOW) Urine Appearance CLEAR (CLEAR) Urine pH 5.0 (5-6) Ur Specific Clifford 1.015 (1.005-1.025) POC Urine Protein Conf 30 (Negative) Urine Ketones LARGE-80 (NEGATIVE) Urine Nitrite NEGATIVE (NEGATIVE) Urine Bilirubin NEGATIVE (NEGATIVE) Urine Urobilinogen 0.2 (0-1) mg/dL Urine Leukocytes NEGATIVE (NEGATIVE) Urine WBC (Auto) 3-5 (0-5) /HPF Urine RBC (Auto) NONE (0-2) /HPF U Hyaline Cast (Auto) 3-5 (0-2) /LPF U Epithel Cells (Auto) RARE (FEW) /HPF Urine Bacteria (Auto) NONE (NEGATIVE) /HPF Urine RBC MODERATE (0-5) Jourdan/ul Urine Mucus (Auto) SLIGHT (NEGATIVE) /HPF Ur Culture Indicated? NO Urine Glucose >=1000 (NEGATIVE) mg/dL C. difficile Screen POSITIVE (NEGATIVE) C.difficile 027-NAP1-B1 PRESUMPTIVE NEGATIVE (NEGATIVE) Monoscreen POSITIVE (Negative) Influenza Type A Ag (NEGATIVE) Influenza Type B Ag (NEGATIVE) RSV (PCR) (Negative) SARS-CoV-2 (PCR) (NEGATIVE) 04/03/22 04/03/22 04/03/22 Range/Units 14:15 14:15 14:15 WBC 24.6 H (4.0-10.5) x10^3/uL RBC 5.06 (4.1-5.6) x10^6/uL Hgb 15.6 (12.5-18.0) g/dL Hct 47.6 (42-50) % MCV 94.1 (78-100) fL MCH 30.8 (26-32) pg MCHC 32.8 (32-36) g/dL RDW 13.2 (11.5-14.0) % Plt Count 339 (150-450) x10^3/uL MPV 10.8 (7.5-11.0) fL Gran % 86.8 H (36.0-66.0) % Immature Gran % (Auto) 1.0 H (0.00-0.4) % Nucleat RBC Rel Count 0.0 (0.00-0.1) % Eos # (Auto) 0.24 (0-0.5) x10^3/uL Immature Gran # (Auto) 0.24 H (0.00-0.03) x10^3u/L Absolute Lymphs (auto) 2.30 (1.0-4.6) x10^3/uL Absolute Monos (auto) 0.35 (0.0-1.3) x10^3/uL Absolute Nucleated RBC 0.00 (0.00-0.01) x10^3u/L Lymphocytes % 9.3 L (24.0-44.0) % Monocytes % 1.4 (0.0-12.0) % Eosinophils % 1.0 (0.00-5.0) % Basophils % 0.5 (0.0-0.4) % Absolute Granulocytes 21.39 H (1.4-6.9) x10^3/uL Basophils # 0.12 (0-0.4) x10^3/uL Sodium 139 (137-145) mmol/L Potassium 3.2 L (3.5-5.1) mmol/L Chloride 106 (98-107) mmol/L Carbon Dioxide 21 L (22-30) mmol/L Anion Gap 15.7 H (5-15) MEQ/L BUN 14 (9-20) mg/dL Creatinine 1.43 H (0.66-1.25) mg/dL Estimated GFR 52.6 ML/MIN Glucose 184 H (74-106) mg/dL Lactic Acid (0.4-2.0) Calcium 9.4 (8.4-10.2) mg/dL Total Bilirubin 0.80 (0.2-1.3) mg/dL AST 35 (17-59) U/L ALT 20 (0-50) U/L Alkaline Phosphatase 115 (38-126) U/L Troponin I < 0.012 (0.000-0.034) ng/mL Serum Total Protein 7.6 (6.3-8.2) g/dL Albumin 4.2 (3.5-5.0) g/dL Amylase 175 H (30-110) U/L Lipase 92 (23-300) U/L Urinalys Dipstick Clnc Urine Color (YELLOW) Urine Appearance (CLEAR) Urine pH (5-6) Ur Specific Clifford (1.005-1.025) POC Urine Protein Conf (Negative) Urine Ketones (NEGATIVE) Urine Nitrite (NEGATIVE) Urine Bilirubin (NEGATIVE) Urine Urobilinogen (0-1) mg/dL Urine Leukocytes (NEGATIVE) Urine WBC (Auto) (0-5) /HPF Urine RBC (Auto) (0-2) /HPF U Hyaline Cast (Auto) (0-2) /LPF U Epithel Cells (Auto) (FEW) /HPF Urine Bacteria (Auto) (NEGATIVE) /HPF Urine RBC (0-5) Jourdan/ul Urine Mucus (Auto) (NEGATIVE) /HPF Ur Culture Indicated? Urine Glucose (NEGATIVE) mg/dL C. difficile Screen (NEGATIVE) C.difficile 027-NAP1-B1 (NEGATIVE) Monoscreen (Negative) Influenza Type A Ag (NEGATIVE) Influenza Type B Ag (NEGATIVE) RSV (PCR) (Negative) SARS-CoV-2 (PCR) (NEGATIVE) 04/03/22 04/03/22 Range/Units 14:08 13:15 WBC (4.0-10.5) x10^3/uL RBC (4.1-5.6) x10^6/uL Hgb (12.5-18.0) g/dL Hct (42-50) % MCV (78-100) fL MCH (26-32) pg MCHC (32-36) g/dL RDW (11.5-14.0) % Plt Count (150-450) x10^3/uL MPV (7.5-11.0) fL Gran % (36.0-66.0) % Immature Gran % (Auto) (0.00-0.4) % Nucleat RBC Rel Count (0.00-0.1) % Eos # (Auto) (0-0.5) x10^3/uL Immature Gran # (Auto) (0.00-0.03) x10^3u/L Absolute Lymphs (auto) (1.0-4.6) x10^3/uL Absolute Monos (auto) (0.0-1.3) x10^3/uL Absolute Nucleated RBC (0.00-0.01) x10^3u/L Lymphocytes % (24.0-44.0) % Monocytes % (0.0-12.0) % Eosinophils % (0.00-5.0) % Basophils % (0.0-0.4) % Absolute Granulocytes (1.4-6.9) x10^3/uL Basophils # (0-0.4) x10^3/uL Sodium (137-145) mmol/L Potassium (3.5-5.1) mmol/L Chloride (98-107) mmol/L Carbon Dioxide (22-30) mmol/L Anion Gap (5-15) MEQ/L BUN (9-20) mg/dL Creatinine (0.66-1.25) mg/dL Estimated GFR ML/MIN Glucose (74-106) mg/dL Lactic Acid 3.0 H (0.4-2.0) Calcium (8.4-10.2) mg/dL Total Bilirubin (0.2-1.3) mg/dL AST (17-59) U/L ALT (0-50) U/L Alkaline Phosphatase (38-126) U/L Troponin I (0.000-0.034) ng/mL Serum Total Protein (6.3-8.2) g/dL Albumin (3.5-5.0) g/dL Amylase (30-110) U/L Lipase (23-300) U/L Urinalys Dipstick Clnc Urine Color (YELLOW) Urine Appearance (CLEAR) Urine pH (5-6) Ur Specific Clifford (1.005-1.025) POC Urine Protein Conf (Negative) Urine Ketones (NEGATIVE) Urine Nitrite (NEGATIVE) Urine Bilirubin (NEGATIVE) Urine Urobilinogen (0-1) mg/dL Urine Leukocytes (NEGATIVE) Urine WBC (Auto) (0-5) /HPF Urine RBC (Auto) (0-2) /HPF U Hyaline Cast (Auto) (0-2) /LPF U Epithel Cells (Auto) (FEW) /HPF Urine Bacteria (Auto) (NEGATIVE) /HPF Urine RBC (0-5) Jourdan/ul Urine Mucus (Auto) (NEGATIVE) /HPF Ur Culture Indicated? Urine Glucose (NEGATIVE) mg/dL C. difficile Screen (NEGATIVE) C.difficile 027-NAP1-B1 (NEGATIVE) Monoscreen (Negative) Influenza Type A Ag NEGATIVE (NEGATIVE) Influenza Type B Ag NEGATIVE (NEGATIVE) RSV (PCR) NEGATIVE (Negative) SARS-CoV-2 (PCR) NEGATIVE (NEGATIVE) - Progress Progress: improved Progress Note: 04/03/22 15:04 CAT scan of the abdomen pelvis without contrast shows new fluid distended small and large bowel loops with fluid leveling. Ileus versus enterocolitis. There is also evidence of gastroesophageal reflux disease. 04/03/22 15:26 Medical decision making: This patient has intractable vomiting and diarrhea. His C. difficile toxin test is positive. He also tested positive for mononucleosis. He is dehydrated. Which is affecting his renal function. We we will admit him into the hospital and provide him with IV hydration, IV Flagyl, antiemetic, and repeat labs in the morning. I spoke with Dr. Rausch who is covering for Dr. Bloom. She agrees with the above plan. Discussed with : Lisa Counseled pt/family regarding: lab results, diagnosis, need for follow-up, rad results - Departure Departure Disposition: In-patient Admission Clinical Impression: C. difficile enteritis, Dehydration, Hypokalemia, Leukocytosis, Mononucleosis Condition: Fair Critical Care Time: No Referrals: MYNOR BLOOM [Primary Care Provider] - Follow up/PCP as directed
[2022-04-03] MEDS ORDERED: Zofran 4 MG/2 ML VIAL ONE (12:35)
[2022-04-03] MEDS ORDERED: Sodium Chloride 0.9% 1000 ML 1,000 ML ONE ×2 (12:35→13:48)
[2022-04-03] MEDS ORDERED: Hydromorphone 1 mg/ml Injection IV ONE (13:45)
[2022-04-03] MEDS ORDERED: Hydromorphone 1 mg/ml Injection ONE ×2 (13:48→17:18)
[2022-04-03 14:25] LABS: Absolute Neutrophil Ct (ANC) 21.39 x10^3/uL (1.4-6.9); Basophil (Absolute #) 0.12 x10^3/uL (0-0.4); Eosinophil (Absolute #) 0.24 x10^3/uL (0-0.5); Hematocrit 47.6 % (42-50); Hemoglobin 15.6 g/dL (12.5-18.0); Lymphocytes % 9.3 % (24.0-44.0); Mean Cell Volume 94.1 fL (78-100); Mean Corpuscular Hemoglobin 30.8 pg (26-32); Mean Corpuscular Hgb Concent. 32.8 g/dL (32-36); Mean Platelet Volume 10.8 fL (7.5-11.0); Monocyte (Absolute #) 0.35 x10^3/uL (0.0-1.3); Monocytes % 1.4 % (0.0-12.0); Neutrophil % 86.8 % (36.0-66.0); Platelet Count 339 x10^3/uL (150-450); Red Blood Count 5.06 x10^6/uL (4.1-5.6); Red Cell Distribution Width 13.2 % (11.5-14.0); White Blood Count 24.6 x10^3/uL (4.0-10.5)
[2022-04-03 14:37] LABS: ALBUMIN 4.2 g/dL (3.5-5.0); ANION GAP 15.7 MEQ/L (5-15); BILIRUBIN,TOTAL 0.8 mg/dL (0.2-1.3); Calcium 9.4 mg/dL (8.4-10.2); Creatinine 1 1.43 mg/dL (0.66-1.25); EST GLOMERULAR FILTRATION RATE 52.6 ML/MIN; Potassium 3.2 mmol/L (3.5-5.1); Total Protein 7.6 g/dL (6.3-8.2)
--- NOTE | 2022-04-03 14:41 | XRAY ---
Indication: Abdomen pain, nausea, vomiting, and diarrhea. Multiple contiguous axial images obtained through the abdomen and pelvis without contrast. Comparison: November 06, 2020. Lung bases again demonstrates mild right base dependent atelectasis and left base calcified pleural plaquing. Heart is not enlarged again with left infrahilar calcified nodes. Small fluid in distal visualized esophagus presumed from gastroesophageal reflux. Stomach is mildly fluid distended. Noncontrasted stomach and bowel loops nonobstructed again with normal appendix. Colon and lesser degree small bowel loops are now mild/moderately fluid distended throughout with fluid leveling favoring ileus versus enterocolitis with colonic diarrhea. No free fluid/air. Remaining liver, gallbladder, pancreas, spleen, adrenal glands, kidneys, ureters, and bladder are unremarkable for noncontrast exam. Again mild aortoiliac calcifications without AAA. Osseous structures intact again with mild degenerative changes throughout the spine and right L5 hemilaminectomy. Stable small fatty left inguinal hernia. Impression: 1. New diffuse fluid distended small and large bowel loops with fluid leveling, ileus versus enterocolitis with colonic diarrhea. 2. New fluid in distal esophagus favoring GERD. 3. Again chronic findings including left lung base calcified pleural plaquing, fatty left inguinal hernia, and chronic bony findings.
[2022-04-03 14:45] LABS: Mucus SLIGHT /HPF (NEGATIVE)
[2022-04-03 14:58] LABS: INFLUENZA A NEGATIVE (NEGATIVE); INFLUENZA B NEGATIVE (NEGATIVE); RESPIRATORY SYNCTIAL VIRUS NEGATIVE (Negative); SARS-CoV-2 Xpert Express NEGATIVE (NEGATIVE)
[2022-04-03 15:04] LABS: Appearance CLEAR (CLEAR); Bilirubin NEGATIVE (NEGATIVE); Epithelial Cells RARE /HPF (FEW); Glucose >=1000 mg/dL (NEGATIVE); Ketones LARGE-80 (NEGATIVE); Nitrite NEGATIVE (NEGATIVE); Protein,Urine Dip 30 (Negative); RBC MODERATE Ery/ul (0-5); Specific Gravity 1.015 (1.005-1.025); Urobilinogen 0.2 mg/dL (0-1)
[2022-04-03 15:05] LABS: Urine Cultured Indicated? NO
[2022-04-03 15:09] LABS: 027 TOX PROD PRESUMPTIVE NEGATIVE (NEGATIVE)
[2022-04-03] MEDS ORDERED: Merrem 1 GM in Sodium Chloride 100ML MINI-BAG PLUS 100 ML IV ONE (15:13)
[2022-04-03] MEDS ORDERED: Sodium Chloride 0.9% 1000 ML 1,000 ML IV SCH (15:15)
[2022-04-03] MEDS ORDERED: FLAGYL 500 MG IVPB 500 MG/100 ML BAG IV STA (15:19)
[2022-04-03 15:20] LABS: TOXIGENIC C. DIFF ORG POSITIVE (NEGATIVE)
[2022-04-03] MEDS ORDERED: FLAGYL 500 MG IVPB 500 MG/100 ML BAG IV ONE ×2 (15:57→16:44)
[2022-04-03] MEDS ORDERED: Sodium Chloride 100ML MINI-BAG PLUS 100 ML IV ONE (17:05)
[2022-04-03] MEDS ORDERED: Merrem IV ONE (17:05)
[2022-04-03] MEDS ORDERED: Zofran 4 MG/2 ML VIAL IV PRN (17:16)
[2022-04-03] MEDS ORDERED: Hydromorphone 1 mg/ml Injection IV PRN (17:16)
[2022-04-03] MEDS: Sodium Chloride 0.9% 1000 ML 1,000 ML IV SCH (17:22)
[2022-04-03 17:51] LABS: Dipstick done @ ? MAIN LAB
[2022-04-03] MEDS: POTASSIUM CHLORIDE 20 mEq IN WATER 100ML 20 MEQ/100 ML BAG IV ONE ×2 (18:21→18:50)
--- NOTE | 2022-04-03 19:07 | PCM.HP ---
History of Present Illness - Chief Complaint Chief Complaint: C. difficile enteritis History of Present Illness: is a 66 year old male [facility] who [facility] by [facility] c/o sudden onset of vomiting and diarrhea and extreme weakness.States he had been on Augmentin for an ear infx but no Hx repeated antibiotics. ER evaluation Dg C.diff enteritis with WBC 24,000. PMHx includes HTN,CAD(HxMI),HLD,COPD(everyday cigarette smoker),GERD,chronic back pain and Hx cervical fracture on Oxycodone,Hx prostate cancer treated surgically 2019. Patient was started on IV Flagyl and hydration in ER and states he is already feeling better but very thirsty and still having diarrhea. - Review of Systems Constitutional: Chills, Lethargy Eyes: No Symptoms Ears, Nose, & Throat: Other (recent ear infx) Respiratory: No Symptoms Cardiac: No Symptoms Abdominal/Gastrointestinal: Abdominal Pain, Nausea, Vomiting, Diarrhea Genitourinary Symptoms: No Symptoms Musculoskeletal: Back Pain (chronic) Skin: No Symptoms Neurological: No Symptoms Psychological: No Symptoms Endocrine: No Symptoms Hematologic/Lymphatic: No Symptoms Medications & Allergies Home Medications: Home Medication List Cyclobenzaprine HCl 10 mg [Cyclobenzaprine 10 MG] 10 mg PO TID PRN 03/16/16 [History Confirmed 04/03/22] Omeprazole 20 MG [Prilosec 20 mg] 20 mg PO DAILY 03/16/16 [History Confirmed 04/03/22] Diphenhydramine HCl 25 mg [Benadryl 25 mg Capsule] 100 mg PO HS PRN PRN 11/26/18 [History Confirmed 04/03/22] Ondansetron ODT 4 MG [Zofran Odt 4 mg] 4 mg PO Q6H PRN PRN #10 tab.rapdis 11/06/20 [Rx Confirmed 04/03/22] Alogliptin Benzoate [Alogliptin] 10 mg PO DAILY 04/03/22 [History Confirmed 04/03/22] Hydrocodone/Acetaminophen [Hydrocodone-Acetamin 10-325 mg] 1 tablet PO QIDPRN PRN 04/03/22 [History Confirmed 04/03/22] Allergies/Adverse Reactions: Allergies Allergy/AdvReac Type Severity Reaction Status Date / Time Sulfa (Sulfonamide Allergy Intermediate Rash Verified 03/22/22 14:58 Antibiotics) ketorolac tromethamine Allergy Mild Swelling Verified 03/22/22 14:58 [From Toradol] nalbuphine HCl [From Nubain] Allergy Mild Swelling Verified 03/22/22 14:58 - Past Medical History Past Medical History: Yes Neurological History: Migraines ENT History: No Pertinent History, Other (recet ear infection) Cardiac History: Hypertension, Myocardial Infarction (SD) Respiratory History: Asthma, COPD Endocrine Medical History: No Pertinent History Musculoskelatal History: Arthritis, Other GI Medical History: GERD, Other Pyscho-Social History: No Pertinent History Male Reproductive Disorders: Prostate Cancer (treated surgically 2020 at the [facility] Comment: Chronic pain syndrome- back disks. Skin cancer on nose - Past Surgical History Past Surgical History: Yes Neuro Surgical History: No Pertinent History Cardiac History: Cardiac Catheterization Respiratory Surgery: No Pertinent History GI Surgical History: No Pertinent History Genitourinary Surgical Hx: No Pertinent History Musculskeletal Surgical Hx: Orthopedic Surgery Male Surgical History: No Pertinent History, Prostate Surgery Other Surgical History: neck, back lucía shoulders, lower back, PROSTATE REMOVED DUE TO PROSTATE CANCER (2020) - Social History Smoking Status: Current every day smoker How long have you smoked: 40 years Exposure to second hand smoke: No Alcohol: None Drug Use: none - Physical Exam Vital Signs: Vital Signs - 24 hr Temp Pulse Resp BP Pulse Ox 04/03/22 17:45 97.7 F 80 16 176/83 93 L 04/03/22 17:39 97.6 F 75 20 120/67 98 04/03/22 17:03 97.6 F 75 20 120/67 98 04/03/22 15:03 84 18 97 04/03/22 14:04 73 20 120/67 98 04/03/22 13:24 97.6 F 86 20 134/85 98 04/03/22 12:16 97.8 F 90 20 132/72 97 General Appearance: mild distress (chilling) Neurologic Exam: alert, oriented x 3, cooperative, normal mood/affect Eye Exam: eyes nml inspection Ears, Nose, Throat Exam: normal ENT inspection Neck Exam: normal inspection Respiratory Exam: diminished breath sounds (no rales or ronchi or wheeze) Cardiovascular Exam: regular rate/rhythm Gastrointestinal/Abdomen Exam: tenderness (periumbilical,diminished BS), distention Rectal Exam: not done Back Exam: decreased range of motion, muscle spasm (chronic ropey) Extremity Exam: normal inspection Skin Exam: normal color, warm, dry Results - Labs Lab/Micro Results: Lab Results-Last 24 Hours 04/03/22 04/03/22 04/03/22 Range/Units 13:15 14:08 14:15 WBC 24.6 H (4.0-10.5) x10^3/uL RBC 5.06 (4.1-5.6) x10^6/uL Hgb 15.6 (12.5-18.0) g/dL Hct 47.6 (42-50) % MCV 94.1 (78-100) fL MCH 30.8 (26-32) pg MCHC 32.8 (32-36) g/dL RDW 13.2 (11.5-14.0) % Plt Count 339 (150-450) x10^3/uL MPV 10.8 (7.5-11.0) fL Gran % 86.8 H (36.0-66.0) % Immature Gran % (Auto) 1.0 H (0.00-0.4) % Nucleat RBC Rel Count 0.0 (0.00-0.1) % Eos # (Auto) 0.24 (0-0.5) x10^3/uL Immature Gran # (Auto) 0.24 H (0.00-0.03) x10^3u/L Absolute Lymphs (auto) 2.30 (1.0-4.6) x10^3/uL Absolute Monos (auto) 0.35 (0.0-1.3) x10^3/uL Absolute Nucleated RBC 0.00 (0.00-0.01) x10^3u/L Lymphocytes % 9.3 L (24.0-44.0) % Monocytes % 1.4 (0.0-12.0) % Eosinophils % 1.0 (0.00-5.0) % Basophils % 0.5 (0.0-0.4) % Absolute Granulocytes 21.39 H (1.4-6.9) x10^3/uL Basophils # 0.12 (0-0.4) x10^3/uL Sodium (137-145) mmol/L Potassium (3.5-5.1) mmol/L Chloride (98-107) mmol/L Carbon Dioxide (22-30) mmol/L Anion Gap (5-15) MEQ/L BUN (9-20) mg/dL Creatinine (0.66-1.25) mg/dL Estimated GFR ML/MIN Glucose (74-106) mg/dL Lactic Acid 3.0 H (0.4-2.0) Calcium (8.4-10.2) mg/dL Total Bilirubin (0.2-1.3) mg/dL AST (17-59) U/L ALT (0-50) U/L Alkaline Phosphatase (38-126) U/L Troponin I (0.000-0.034) ng/mL Serum Total Protein (6.3-8.2) g/dL Albumin (3.5-5.0) g/dL Amylase (30-110) U/L Lipase (23-300) U/L Urinalys Dipstick Clnc Urine Color (YELLOW) Urine Appearance (CLEAR) Urine pH (5-6) Ur Specific [place] (1.005-1.025) POC Urine Protein Conf (Negative) Urine Ketones (NEGATIVE) Urine Nitrite (NEGATIVE) Urine Bilirubin (NEGATIVE) Urine Urobilinogen (0-1) mg/dL Urine Leukocytes (NEGATIVE) Urine WBC (Auto) (0-5) /HPF Urine RBC (Auto) (0-2) /HPF U Hyaline Cast (Auto) (0-2) /LPF U Epithel Cells (Auto) (FEW) /HPF Urine Bacteria (Auto) (NEGATIVE) /HPF Urine RBC (0-5) Jourdan/ul Urine Mucus (Auto) (NEGATIVE) /HPF Ur Culture Indicated? Urine Glucose (NEGATIVE) mg/dL C. difficile Screen (NEGATIVE) C.difficile 027-NAP1-B1 (NEGATIVE) Monoscreen (Negative) Influenza Type A Ag NEGATIVE (NEGATIVE) Influenza Type B Ag NEGATIVE (NEGATIVE) RSV (PCR) NEGATIVE (Negative) SARS-CoV-2 (PCR) NEGATIVE (NEGATIVE) 04/03/22 04/03/22 04/03/22 Range/Units 14:15 14:15 14:15 WBC (4.0-10.5) x10^3/uL RBC (4.1-5.6) x10^6/uL Hgb (12.5-18.0) g/dL Hct (42-50) % MCV (78-100) fL MCH (26-32) pg MCHC (32-36) g/dL RDW (11.5-14.0) % Plt Count (150-450) x10^3/uL MPV (7.5-11.0) fL Gran % (36.0-66.0) % Immature Gran % (Auto) (0.00-0.4) % Nucleat RBC Rel Count (0.00-0.1) % Eos # (Auto) (0-0.5) x10^3/uL Immature Gran # (Auto) (0.00-0.03) x10^3u/L Absolute Lymphs (auto) (1.0-4.6) x10^3/uL Absolute Monos (auto) (0.0-1.3) x10^3/uL Absolute Nucleated RBC (0.00-0.01) x10^3u/L Lymphocytes % (24.0-44.0) % Monocytes % (0.0-12.0) % Eosinophils % (0.00-5.0) % Basophils % (0.0-0.4) % Absolute Granulocytes (1.4-6.9) x10^3/uL Basophils # (0-0.4) x10^3/uL Sodium 139 (137-145) mmol/L Potassium 3.2 L (3.5-5.1) mmol/L Chloride 106 (98-107) mmol/L Carbon Dioxide 21 L (22-30) mmol/L Anion Gap 15.7 H (5-15) MEQ/L BUN 14 (9-20) mg/dL Creatinine 1.43 H (0.66-1.25) mg/dL Estimated GFR 52.6 ML/MIN Glucose 184 H (74-106) mg/dL Lactic Acid (0.4-2.0) Calcium 9.4 (8.4-10.2) mg/dL Total Bilirubin 0.80 (0.2-1.3) mg/dL AST 35 (17-59) U/L ALT 20 (0-50) U/L Alkaline Phosphatase 115 (38-126) U/L Troponin I < 0.012 (0.000-0.034) ng/mL Serum Total Protein 7.6 (6.3-8.2) g/dL Albumin 4.2 (3.5-5.0) g/dL Amylase 175 H (30-110) U/L Lipase 92 (23-300) U/L Urinalys Dipstick Clnc Urine Color (YELLOW) Urine Appearance (CLEAR) Urine pH (5-6) Ur Specific [place] (1.005-1.025) POC Urine Protein Conf (Negative) Urine Ketones (NEGATIVE) Urine Nitrite (NEGATIVE) Urine Bilirubin (NEGATIVE) Urine Urobilinogen (0-1) mg/dL Urine Leukocytes (NEGATIVE) Urine WBC (Auto) (0-5) /HPF Urine RBC (Auto) (0-2) /HPF U Hyaline Cast (Auto) (0-2) /LPF U Epithel Cells (Auto) (FEW) /HPF Urine Bacteria (Auto) (NEGATIVE) /HPF Urine RBC (0-5) Jourdan/ul Urine Mucus (Auto) (NEGATIVE) /HPF Ur Culture Indicated? Urine Glucose (NEGATIVE) mg/dL C. difficile Screen (NEGATIVE) C.difficile 027-NAP1-B1 (NEGATIVE) Monoscreen POSITIVE (Negative) Influenza Type A Ag (NEGATIVE) Influenza Type B Ag (NEGATIVE) RSV (PCR) (Negative) SARS-CoV-2 (PCR) (NEGATIVE) 04/03/22 04/03/22 04/03/22 Range/Units 14:15 15:50 16:11 WBC (4.0-10.5) x10^3/uL RBC (4.1-5.6) x10^6/uL Hgb (12.5-18.0) g/dL Hct (42-50) % MCV (78-100) fL MCH (26-32) pg MCHC (32-36) g/dL RDW (11.5-14.0) % Plt Count (150-450) x10^3/uL MPV (7.5-11.0) fL Gran % (36.0-66.0) % Immature Gran % (Auto) (0.00-0.4) % Nucleat RBC Rel Count (0.00-0.1) % Eos # (Auto) (0-0.5) x10^3/uL Immature Gran # (Auto) (0.00-0.03) x10^3u/L Absolute Lymphs (auto) (1.0-4.6) x10^3/uL Absolute Monos (auto) (0.0-1.3) x10^3/uL Absolute Nucleated RBC (0.00-0.01) x10^3u/L Lymphocytes % (24.0-44.0) % Monocytes % (0.0-12.0) % Eosinophils % (0.00-5.0) % Basophils % (0.0-0.4) % Absolute Granulocytes (1.4-6.9) x10^3/uL Basophils # (0-0.4) x10^3/uL Sodium (137-145) mmol/L Potassium (3.5-5.1) mmol/L Chloride (98-107) mmol/L Carbon Dioxide (22-30) mmol/L Anion Gap (5-15) MEQ/L BUN (9-20) mg/dL Creatinine (0.66-1.25) mg/dL Estimated GFR ML/MIN Glucose (74-106) mg/dL Lactic Acid 2.1 H (0.4-2.0) Calcium (8.4-10.2) mg/dL Total Bilirubin (0.2-1.3) mg/dL AST (17-59) U/L ALT (0-50) U/L Alkaline Phosphatase (38-126) U/L Troponin I < 0.012 (0.000-0.034) ng/mL Serum Total Protein (6.3-8.2) g/dL Albumin (3.5-5.0) g/dL Amylase (30-110) U/L Lipase (23-300) U/L Urinalys Dipstick Clnc Urine Color (YELLOW) Urine Appearance (CLEAR) Urine pH (5-6) Ur Specific [place] (1.005-1.025) POC Urine Protein Conf (Negative) Urine Ketones (NEGATIVE) Urine Nitrite (NEGATIVE) Urine Bilirubin (NEGATIVE) Urine Urobilinogen (0-1) mg/dL Urine Leukocytes (NEGATIVE) Urine WBC (Auto) (0-5) /HPF Urine RBC (Auto) (0-2) /HPF U Hyaline Cast (Auto) (0-2) /LPF U Epithel Cells (Auto) (FEW) /HPF Urine Bacteria (Auto) (NEGATIVE) /HPF Urine RBC (0-5) Jourdan/ul Urine Mucus (Auto) (NEGATIVE) /HPF Ur Culture Indicated? Urine Glucose (NEGATIVE) mg/dL C. difficile Screen POSITIVE (NEGATIVE) C.difficile 027-NAP1-B1 PRESUMPTIVE NEGATIVE (NEGATIVE) Monoscreen (Negative) Influenza Type A Ag (NEGATIVE) Influenza Type B Ag (NEGATIVE) RSV (PCR) (Negative) SARS-CoV-2 (PCR) (NEGATIVE) 04/03/22 Range/Units Unknown WBC (4.0-10.5) x10^3/uL RBC (4.1-5.6) x10^6/uL Hgb (12.5-18.0) g/dL Hct (42-50) % MCV (78-100) fL MCH (26-32) pg MCHC (32-36) g/dL RDW (11.5-14.0) % Plt Count (150-450) x10^3/uL MPV (7.5-11.0) fL Gran % (36.0-66.0) % Immature Gran % (Auto) (0.00-0.4) % Nucleat RBC Rel Count (0.00-0.1) % Eos # (Auto) (0-0.5) x10^3/uL Immature Gran # (Auto) (0.00-0.03) x10^3u/L Absolute Lymphs (auto) (1.0-4.6) x10^3/uL Absolute Monos (auto) (0.0-1.3) x10^3/uL Absolute Nucleated RBC (0.00-0.01) x10^3u/L Lymphocytes % (24.0-44.0) % Monocytes % (0.0-12.0) % Eosinophils % (0.00-5.0) % Basophils % (0.0-0.4) % Absolute Granulocytes (1.4-6.9) x10^3/uL Basophils # (0-0.4) x10^3/uL Sodium (137-145) mmol/L Potassium (3.5-5.1) mmol/L Chloride (98-107) mmol/L Carbon Dioxide (22-30) mmol/L Anion Gap (5-15) MEQ/L BUN (9-20) mg/dL Creatinine (0.66-1.25) mg/dL Estimated GFR ML/MIN Glucose (74-106) mg/dL Lactic Acid (0.4-2.0) Calcium (8.4-10.2) mg/dL Total Bilirubin (0.2-1.3) mg/dL AST (17-59) U/L ALT (0-50) U/L Alkaline Phosphatase (38-126) U/L Troponin I (0.000-0.034) ng/mL Serum Total Protein (6.3-8.2) g/dL Albumin (3.5-5.0) g/dL Amylase (30-110) U/L Lipase (23-300) U/L Urinalys Dipstick Clnc MAIN LAB Urine Color YELLOW (YELLOW) Urine Appearance CLEAR (CLEAR) Urine pH 5.0 (5-6) Ur Specific [place] 1.015 (1.005-1.025) POC Urine Protein Conf 30 (Negative) Urine Ketones LARGE-80 (NEGATIVE) Urine Nitrite NEGATIVE (NEGATIVE) Urine Bilirubin NEGATIVE (NEGATIVE) Urine Urobilinogen 0.2 (0-1) mg/dL Urine Leukocytes NEGATIVE (NEGATIVE) Urine WBC (Auto) 3-5 (0-5) /HPF Urine RBC (Auto) NONE (0-2) /HPF U Hyaline Cast (Auto) 3-5 (0-2) /LPF U Epithel Cells (Auto) RARE (FEW) /HPF Urine Bacteria (Auto) NONE (NEGATIVE) /HPF Urine RBC MODERATE (0-5) Jourdan/ul Urine Mucus (Auto) SLIGHT (NEGATIVE) /HPF Ur Culture Indicated? NO Urine Glucose >=1000 (NEGATIVE) mg/dL C. difficile Screen (NEGATIVE) C.difficile 027-NAP1-B1 (NEGATIVE) Monoscreen (Negative) Influenza Type A Ag (NEGATIVE) Influenza Type B Ag (NEGATIVE) RSV (PCR) (Negative) SARS-CoV-2 (PCR) (NEGATIVE) - Radiology Impressions Radiology Exams & Impressions: Radiology Procedures Category Date Time Status ABDOMEN AND PELVIS W/0 CONTRAS [CT] Stat Exams 04/03/22 12:23 Completed - Other Procedures and Tests Respiratory Therapy 04/03/22 18:16 Smoking Cessation Education ONCE Assessment/Plan (1) C. difficile enteritis Current Visit: Yes Status: Acute Assessment & Plan: IV Flagyl,AM labs Code(s): A04.72 - ENTEROCOLITIS D/T CLOSTRIDIUM DIFFICILE, NOT SPCF RECUR (2) Dehydration Current Visit: Yes Status: Acute Assessment & Plan: IV fluid ,monitor electrolyte Code(s): E86.0 - DEHYDRATION (3) Mononucleosis Current Visit: Yes Status: Acute Assessment & Plan: detected on lab panel Code(s): B27.90 - INFECTIOUS MONONUCLEOSIS, UNSPECIFIED WITHOUT COMPLICATION (4) Hypertension Current Visit: No Status: Acute Qualifiers: Hypertension type: essential hypertension Qualified Code(s): I10 - Essential (primary) hypertension Assessment & Plan: monitor Code(s): I10 - ESSENTIAL (PRIMARY) HYPERTENSION (5) Ileus Current Visit: Yes Status: Acute Assessment & Plan: per CT, NPO ice chips only for now Code(s): K56.7 - ILEUS, UNSPECIFIED (6) CAD (coronary artery disease) Current Visit: Yes Status: Chronic Assessment & Plan: no cardiac symptoms with this illness Code(s): I25.10 - ATHSCL HEART DISEASE OF [place] CORONARY ARTERY W/O ANG PCTRS (7) COPD (chronic obstructive pulmonary disease) Current Visit: Yes Status: Chronic Assessment & Plan: no exacerbation this illness (8) Hx of malignant neoplasm of prostate Current Visit: Yes Status: Resolved Assessment & Plan: treated surgically 2018 Code(s): Z85.46 - PERSONAL HISTORY OF MALIGNANT NEOPLASM OF PROSTATE
[2022-04-03] MEDS ORDERED: BENADRYL 25 MG CAPSULE PO PRN (20:08)
[2022-04-03] MEDS ORDERED: ZOFRAN ODT 4 MG PO PRN (20:10)
[2022-04-03] MEDS ORDERED: Cyclobenzaprine 10 MG PO SCH (20:15)
[2022-04-03 20:48] LABS: Slide Review 1 YES
[2022-04-03] MEDS: HYDROCODONE-ACETAMIN 10-325 MG PO PRN (21:16)
[2022-04-03] MEDS: FLAGYL 500 MG IVPB 500 MG/100 ML BAG IV SCH (23:29)
[2022-04-04] MEDS: Sodium Chloride 0.9% 1000 ML 1,000 ML IV SCH ×3 (00:55→22:13)
[2022-04-04] MEDS: HYDROCODONE-ACETAMIN 10-325 MG PO PRN ×4 (03:38→23:30)
[2022-04-04 05:05] LABS: Absolute Neutrophil Ct (ANC) 7.67 x10^3/uL (1.4-6.9); Basophil (Absolute #) 0.02 x10^3/uL (0-0.4); Eosinophil % 0.9 % (0.00-5.0); Eosinophil (Absolute #) 0.09 x10^3/uL (0-0.5); Hematocrit 33.5 % (42-50); Hemoglobin 11.3 g/dL (12.5-18.0); Lymphocytes % 17.5 % (24.0-44.0); Mean Cell Volume 92.5 fL (78-100); Mean Corpuscular Hemoglobin 31.2 pg (26-32); Mean Corpuscular Hgb Concent. 33.7 g/dL (32-36); Mean Platelet Volume 10.8 fL (7.5-11.0); Monocyte (Absolute #) 0.67 x10^3/uL (0.0-1.3); Monocytes % 6.5 % (0.0-12.0); Neutrophil % 74.4 % (36.0-66.0); Platelet Count 248 x10^3/uL (150-450); Red Blood Count 3.62 x10^6/uL (4.1-5.6); Red Cell Distribution Width 13.2 % (11.5-14.0); White Blood Count 10.3 x10^3/uL (4.0-10.5)
[2022-04-04 05:07] LABS: ALBUMIN 2.5 g/dL (3.5-5.0); ALKALINE PHOSPHATASE 62 U/L (38-126); ANION GAP 8.9 MEQ/L (5-15); BLOOD UREA NITROGEN 10 mg/dL (9-20); CHLORIDE 111 mmol/L (98-107); Carbon Dioxide 20 mmol/L (22-30); EST GLOMERULAR FILTRATION RATE > 60.0 ML/MIN; Glucose 107 mg/dL (74-106); Potassium 3.6 mmol/L (3.5-5.1); SGOT/AST 20 U/L (17-59); SGPT/ALT 12 U/L (0-50); SODIUM 136 mmol/L (137-145)
[2022-04-04] MEDS: FLAGYL 500 MG IVPB 500 MG/100 ML BAG IV SCH ×4 (07:05→23:31)
[2022-04-04] MEDS ORDERED: Cyclobenzaprine 10 MG PO PRN (07:15)
[2022-04-04] MEDS ORDERED: NON-FORMULARY ITEM (Omeprazole 20 Mg [Prilosec 20 Mg] 20 MG Capsule.Dr) PO SCH (10:00)
[2022-04-04] MEDS ORDERED: Protonix 40MG Tablet PO SCH (10:00)
[2022-04-04] MEDS ORDERED: ALOGLIPTIN BENZOATE 6.25 MG PO SCH (10:00)
[2022-04-05] MEDS: FLAGYL 500 MG IVPB 500 MG/100 ML BAG IV SCH (05:32)
[2022-04-05 06:09] LABS: Absolute Neutrophil Ct (ANC) 4.04 x10^3/uL (1.4-6.9); Basophil (Absolute #) 0.04 x10^3/uL (0-0.4); Eosinophil (Absolute #) 0.13 x10^3/uL (0-0.5); Hematocrit 32.5 % (42-50); Lymphocyte (Absolute #) 1.62 x10^3/uL (1.0-4.6); Lymphocytes % 25.4 % (24.0-44.0); Mean Cell Volume 91.5 fL (78-100); Mean Corpuscular Hgb Concent. 33.8 g/dL (32-36); Mean Platelet Volume 10.9 fL (7.5-11.0); Monocyte (Absolute #) 0.52 x10^3/uL (0.0-1.3); Monocytes % 8.2 % (0.0-12.0); Neutrophil % 63.3 % (36.0-66.0); Platelet Count 234 x10^3/uL (150-450); Red Blood Count 3.55 x10^6/uL (4.1-5.6); Red Cell Distribution Width 13.5 % (11.5-14.0); White Blood Count 6.4 x10^3/uL (4.0-10.5)
[2022-04-05 06:33] LABS: ALBUMIN 2.6 g/dL (3.5-5.0); ALKALINE PHOSPHATASE 57 U/L (38-126); ANION GAP 8.7 MEQ/L (5-15); BLOOD UREA NITROGEN 12 mg/dL (9-20); CHLORIDE 111 mmol/L (98-107); Calcium 7.9 mg/dL (8.4-10.2); Carbon Dioxide 21 mmol/L (22-30); Creatinine 1 0.99 mg/dL (0.66-1.25); EST GLOMERULAR FILTRATION RATE > 60.0 ML/MIN; Glucose 85 mg/dL (74-106); Potassium 3.7 mmol/L (3.5-5.1); SGOT/AST 24 U/L (17-59); SGPT/ALT 13 U/L (0-50); SODIUM 138 mmol/L (137-145); Total Protein 5.3 g/dL (6.3-8.2)
[2022-04-05] MEDS ORDERED: MEDICATION INTERVENTION MC SCH (07:30)
[2022-04-05] MEDS: HYDROCODONE-ACETAMIN 10-325 MG PO PRN (07:46)
[2022-04-05 08:08] VITALS: BP 154/74; PULSE 53; O2SAT 96
[2022-04-05] MEDS ORDERED: NON-FORMULARY ITEM (Alogliptin Benzoate [Alogliptin] 12.5 MG) PO SCH (10:00)
--- NOTE | 2022-04-06 15:20 | SSS ---
DISCHARGE DIAGNOSES: 1) CLOSTRIDIUM DIFFICILE COLITIS. 2) MONONUCLEOSIS. HISTORY: The patient is a 56-year-old white male patient who had developed vomiting and diarrhea. He had been treated recently for an ear infection with Augmentin. The patient had developed the above problem and the patient presented himself to the emergency room for further evaluation and management. PAST MEDICAL/SURGICAL HISTORY: Significant for hypertension, coronary artery disease, chronic obstructive pulmonary disease, gastroesophageal reflux disease, chronic back pain, previous cervical fracture. Chronic pain management. He had prostate cancer removed in 2019. The patient had a basal cell skin cancer on his nose which he has not had followed up for the last ten years. HOME MEDICATIONS: Cyclobenzaprine 10 mg t.i.d., omeprazole 20 mg a day, Benadryl 100 mg at night, Zofran 4 mg every six hours PRN for nausea. He is on Alogliptin 10 mg daily, [place] 10/325 every 4 hours PRN for pain. ALLERGIES: SULFA. TORADOL. NUBAIN. PHYSICAL EXAMINATION: The patient's vital signs on admission showed temperature 97.8F, pulse 90, respiratory rate 20 and blood pressure 133/72. O2 saturation was 97%. HEENT: Normocephalic, atraumatic. He does have approximately 1 cm skin cancer on the tip of his nose. Oropharynx is pink and moist. NECK: Supple without lymphadenopathy, thyromegaly or JVD. CHEST: Clear to auscultation. HEART: Currently regular rate and rhythm without murmurs, rubs or gallops. ABDOMEN: Soft, somewhat tender. No palpable masses. EXTREMITIES: Without cyanosis, clubbing or edema. NEUROLOGIC: The patient is alert and oriented x3. LAB DATA AND TESTS: The patient's initial laboratory studies showed his urine to have greater than 1,000 sugar, large ketones and specific gravity 1.015. His white count was 24.6, hemoglobin 15.6, PLT count 339,000. He had a troponin 0.013. Potassium repeat at 4.1. He had a second troponin at 0.012. HOSPITAL COURSE: The patient was treated with IV metronidazole. He was much better by the next day, having no further stools. His glucose was 85, BUN 12, creatinine 0.99, potassium 3.7. His white count was down to 6.4, hemoglobin 11.0, PLT count 234,000. The patient did also have a CT scan of the abdomen and pelvis which was consistent with colitis. He had a 12 lead EKG which showed borderline left axis deviation and mild interventricular conduction delay and PAC's were noted otherwise no significant ST-T wave changes. DISCHARGE PLAN: The patient was discharged home on Flagyl at 500 mg two times a day. He was warned not to take any alcohol with this. He will receive this for an additional five days. He was offered an appointment to see us in the office this coming week. [facility] I have seen him many times in the past as well.
[2022-04-06 19:11] LABS: Adenovirus F40/41 Not Detected (Not Detected); Astrovirus Not Detected (Not Detected); Campylobacter Not Detected (Not Detected); Cryptosporidium Not Detected (Not Detected); Cyclospora cayetanensis Not Detected (Not Detected); Entamoeba histolytica Not Detected (Not Detected); Enteroaggregative E coli Not Detected (Not Detected); Enterpathogenic E coli Not Detected (Not Detected); Entertoxigenic E coli Not Detected (Not Detected); Giardia lamblia Not Detected (Not Detected); Norovirus GI/GII Not Detected (Not Detected); Plesiomonas shigelloides Not Detected (Not Detected); Rotavirus A Not Detected (Not Detected); Salmonella Not Detected (Not Detected); Shig-toxin-producing E coli Not Detected (Not Detected); Shigella/Enterinvasive E coli Not Detected (Not Detected); Vibrio Not Detected (Not Detected); Vibrio cholerae Not Detected (Not Detected); Yersinia enterocolitica Not Detected (Not Detected)
[2022-04-07 01:12] LABS: Sapovirus Not Detected (Not Detected)
== END 2022-04-05 08:55 | disposition home or self-care (01) | DRG 372 ==
LOC: ED 12:15 → MED SURG 17:14
PROVIDERS: ADMIT Family Medicine; ATTEND Family Medicine
DX: A04.72 Enterocolitis due to Clostridium difficile, not specified as recurrent (principal); K56.7 Ileus, unspecified; B27.90 Infectious mononucleosis, unspecified without complication; H66.90 Otitis media, unspecified, unspecified ear; I10 Essential (primary) hypertension; E86.0 Dehydration; I25.10 Atherosclerotic heart disease of native coronary artery without angina pectoris; J44.9 Chronic obstructive pulmonary disease, unspecified; Z85.46 Personal history of malignant neoplasm of prostate; Z79.899 Other long term (current) drug therapy; Z20.828 Contact with and (suspected) exposure to other viral communicable diseases; Z85.828 Personal history of other malignant neoplasm of skin; Z72.0 Tobacco use
CPT/HCPCS: 0241U; 36000; 36415; 74176; 80053; 81015; 82150; 82947; 83036; 83605; 83690; 84132; 84484; 85025; 86308; 87040; 87493; 87507; 93005; 96360; 96361; 96365; 96367; 96374; 96375; 99285; J1170; J2405; J3480; A9270-GY

== ENCOUNTER 2022-12-19 01:47 | Emergency (ER) | payer MEDICARE ==
[2022-12-19] MEDS ORDERED: Sodium Chloride 0.9% 1000 ML 1,000 ML IV STA (02:16)
[2022-12-19] MEDS ORDERED: Sodium Chloride 0.9% 1000 ML 1,000 ML ONE (02:33)
[2022-12-19 02:36] LABS: Absolute Neutrophil Ct (ANC) 7.46 x10^3/uL (1.4-6.9); BASOPHIL % 0.7 % (0.0-0.4); Basophil (Absolute #) 0.07 x10^3/uL (0-0.4); Eosinophil % 3.2 % (0.00-5.0); Eosinophil (Absolute #) 0.34 x10^3/uL (0-0.5); Hematocrit 47.9 % (42-50); Hemoglobin 16.2 g/dL (12.5-18.0); IMMATURE GRAN # 0.06 x10^3u/L (0.00-0.03); IMMATURE GRAN % 0.6 % (0.00-0.4); Lymphocyte (Absolute #) 1.66 x10^3/uL (1.0-4.6); Lymphocytes % 15.8 % (24.0-44.0); Mean Cell Volume 92.5 fL (78-100); Mean Corpuscular Hemoglobin 31.3 pg (26-32); Mean Corpuscular Hgb Concent. 33.8 g/dL (32-36); Mean Platelet Volume 9.9 fL (7.5-11.0); Monocyte (Absolute #) 0.89 x10^3/uL (0.0-1.3); Monocytes % 8.5 % (0.0-12.0); Neutrophil % 71.2 % (36.0-66.0); Platelet Count 417 x10^3/uL (150-450); Red Blood Count 5.18 x10^6/uL (4.1-5.6); Red Cell Distribution Width 12.5 % (11.5-14.0); White Blood Count 10.5 x10^3/uL (4.0-10.5)
[2022-12-19 02:47] LABS: ALBUMIN 4.6 g/dL (3.5-5.0); ALKALINE PHOSPHATASE 124 U/L (38-126); BLOOD UREA NITROGEN 14 mg/dL (9-20); CHLORIDE 97 mmol/L (98-107); Calcium 9.6 mg/dL (8.4-10.2); Carbon Dioxide 28 mmol/L (22-30); Creatinine 1 0.95 mg/dL (0.66-1.25); EST GLOMERULAR FILTRATION RATE > 60.0 ML/MIN; Glucose 158 mg/dL (74-106); LIPASE 59 U/L (23-300); Potassium 3.8 mmol/L (3.5-5.1); SGOT/AST 36 U/L (17-59); SGPT/ALT 22 U/L (0-50)
[2022-12-19 02:49] LABS: SODIUM 137 mmol/L (137-145)
[2022-12-19 02:53] LABS: ANION GAP 15.8 MEQ/L (5-15)
[2022-12-19 03:04] LABS: Amphetamine,Urine NEGATIVE (NEGATIVE); Barbiturate,Urine NEGATIVE (NEGATIVE); Benzodiazepine,Urine NEGATIVE (NEGATIVE); Cocaine,Urine NEGATIVE (NEGATIVE); Methadone,Urine NEGATIVE (NEGATIVE); Opiate,Urine POSITIVE (NEGATIVE); PCP,Urine NEGATIVE (NEGATIVE); THC,Urine NEGATIVE (NEGATIVE)
[2022-12-19 03:18] LABS: PHOSPHOROUS 3.6 mg/dL (2.5-4.5)
[2022-12-19 03:54] LABS: TSH, 3RD Generation 2.81 mIU/L (0.47-4.68)
[2022-12-19 04:37] LABS: Folate (Folic Acid) 5.41 ng/mL (2.76 - >20)
[2022-12-19 04:41] LABS: Appearance Cloudy (Clear); Bacteria None Seen /HPF (None Seen); Bilirubin Small (Negative); Blood Negative (Negative); Epithelial Cells None Seen /HPF (None Seen); Glucose, Urine Negative (Negative); Ketones Trace (Negative); Leukocyte Esterase Negative (Negative); Nitrite Negative (Negative); Ph 5.5 (4.6-8.0); Protein,Urine Dip 30 (Negative); Specific Gravity 1.025 (1.005-1.030); WBC 0-2 /HPF (0-5)
[2022-12-19 04:42] LABS: Budding Yeast Rare /HPF (None Seen)
[2022-12-19 04:43] LABS: ADD URINE CULTURE? NO (NO)
[2022-12-19 06:43] VITALS: O2SAT 98
--- NOTE | 2022-12-19 06:51 | ERPHSYRPT ---
- History of Present Illness Historian: patient Exam Limitations: no limitations Patient Subjective Stated Complaint: pt states he has increased anxiety tonight. states he has had a panic attack in the past and this feels the same. Triage Nursing Assessment: pt awake and alert, answers questions approp. pt ambulatory with steady gait noted. respirations nonalbored. skin warm and dry. pupils equal and reactive. pt restless, up pacing in room. Physician History: Excessive worrying about health concerns, hx of prostate CA 1 year ago, today reports a 50lb weight loss in the last 6mo. Symptoms have been present for > 6 months. Impairing sleep and concentration. Complains of nausea, vomiting No history of physical or emotional trauma or of a loved one. + panic attacks. Denies any use of drugs, excessive caffeine or alcohol. No thyroid disease. No Family Hx of psychiatric conditions. Denies depression. Denies suicidal ideation. Denies any manic or hypomanic episodes. Denies any visual or auditory hallucinations. Timing/Duration: today Activities at Onset: none Associated Symptoms: fatigue, nausea, vomiting Previous symptoms: same symptoms as today Allergies/Adverse Reactions: Sulfa (Sulfonamide Antibiotics) Allergy (Intermediate, Verified 12/19/22 02:09) Rash ketorolac tromethamine [From Toradol] Allergy (Mild, Verified 12/19/22 02:09) Swelling nalbuphine HCl [From Nubain] Allergy (Mild, Verified 12/19/22 02:09) Swelling Home Medications: Cyclobenzaprine HCl 10 mg [Cyclobenzaprine 10 MG] 10 mg PO TID PRN 03/16/16 [History] Omeprazole 20 MG [Prilosec 20 mg] 20 mg PO DAILY 03/16/16 [History] Morphine Sulfate Ir 15 mg [Msir 15 mg] 15 mg PO TID PRN PRN 12/19/22 [History] Hx Tetanus, Diphtheria Vaccination/Date Given: Yes Hx Influenza Vaccination/Date Given: No Hx Pneumococcal Vaccination/Date Given: No Immunizations Up to Date: Yes Travel Risk - International Travel Have you traveled outside of the country in past 3 weeks: No - Coronavirus Screening Are you exhibiting any of the following symptoms?: No Close contact with a COVID-19 positive Pt in past 14-21 Days: No - Vaccine Status Have you recieved a Covid-19 vaccination: Yes 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: [employer] - Vaccination Dates Date of 2cond Vaccination (if applicable): 07/23/21 - Review of Systems Constitutional: Malaise, Weakness, Weight Loss Eyes: No Symptoms Ears, Nose, & Throat: No Symptoms Respiratory: No Symptoms Cardiac: No Symptoms Abdominal/Gastrointestinal: Nausea, Vomiting, Appetite Changes Genitourinary Symptoms: No Symptoms Musculoskeletal: No Symptoms Skin: No Symptoms Psychological: Anxiety, No Alcohol Abuse, No Drug Abuse, No Suicidal Ideations, No Homicidal Ideations, No Emotional Lability, No Hallucinations - Past Medical History Pertinent Past Medical History: Yes Neurological History: Migraines ENT History: No Pertinent History, Other Cardiac History: Hypertension, Myocardial Infarction ([place]) Respiratory History: Asthma, COPD Endocrine Medical History: No Pertinent History Musculoskeletal History: Arthritis, Other GI Medical History: GERD, Other History: Other Psycho-Social History: No Pertinent History Male Reproductive Disorders: Prostate Cancer Other Medical History: Chronic pain syndrome- back disks. Skin cancer on nose - Past Surgical History Past Surgical History: Yes Neuro Surgical History: No Pertinent History Cardiac: Cardiac Catheterization Respiratory: No Pertinent History Gastrointestinal: No Pertinent History Genitourinary: No Pertinent History Musculoskeletal: Orthopedic Surgery Male Surgical History: No Pertinent History, Prostate Surgery Other Surgical History: neck, back lucía shoulders, lower back, PROSTATE REMOVED DUE TO PROSTATE CANCER (2020) - Social History Smoking Status: Light tobacco smoker How long have you smoked: 40 years Exposure to second hand smoke: No Drug Use: none Patient Lives Alone: No - Nursing Vital Signs Nursing Vital Signs: Initial Vital Signs Temperature 97.5 F 12/19/22 01:54 Pulse Rate 73 12/19/22 01:54 Respiratory Rate 18 12/19/22 01:54 Blood Pressure 191/115 12/19/22 01:54 O2 Sat by Pulse Oximetry 97 12/19/22 01:54 Pain Scale Pain Intensity 0 - Physical Exam General Appearance: moderate distress, anxiety, cachetic Ears, Nose, Throat Exam: normal ENT inspection Neck Exam: normal inspection Respiratory Exam: normal breath sounds, lungs clear Cardiovascular Exam: normal heart sounds, tachycardia Gastrointestinal/Abdomen Exam: soft, normal bowel sounds, tenderness, No distention, No mass Back Exam: normal inspection, normal range of motion, No CVA tenderness Extremity Exam: normal inspection, normal range of motion Neurologic Exam: alert, oriented x 3, cooperative, other (anxious, pacing) Skin Exam: normal color SpO2 Interpretation: normal SpO2: 98 O2 Delivery: Room Air - Course Nursing assessment & vital signs reviewed: Yes EKG Interpreted by Me: RATE (55), Sinus Rhythm, NORMAL AXIS, NORMAL INTERVALS, NORMAL QRS, NORMAL ST-T - CT Exams Head CT Interpretation: Negative, Tele-radiologist Report (very small LN in the mediastinum marginally increased in size vs 1026, no parenchymal metastatic disease, interstitial thickening at the right lung base w/ trace mucus plugging, ascending aorta aneurysm 4.3cm) Abdomen/Pelvis CT Interpretation: Tele-radiologist Report, Other (Increasing and new adenopathy in the mesenteric root, retroperitoneum, b/l inguinal into lesser extent pelvis. Concerning for metastatic disease. Lymphoma/leukemia is w/in the differential. Concomitant mesenteritis not excluded. Moderate stool burden in colon and small bowel) Chest CT Interpretation: Tele-radiologist Report Ordered Tests: Medication Summary Discontinued Medications Generic Name Dose Route Start Last Admin Trade Name Freq PRN Reason Stop Dose Admin Droperidol 1.25 mg 12/19/22 02:16 12/19/22 02:35 Droperidol 5 Mg/2 Ml Vial IV 12/19/22 02:17 1.25 mg STAT ONE Administration Droperidol Confirm 12/19/22 02:33 Droperidol 5 Mg/2 Ml Vial Administered 12/19/22 02:34 Dose 5 mg .ROUTE .STK-MED ONE Sodium Chloride 1,000 mls @ 999 mls/hr 12/19/22 02:16 12/19/22 04:07 Sodium Chloride 0.9% 1000 Ml IV 12/19/22 03:16 Infused .Q1H1M STA Infusion Sodium Chloride Confirm 12/19/22 02:33 Sodium Chloride 0.9% 1000 Ml Administered 12/19/22 02:34 Dose 1,000 mls @ ud .ROUTE .STK-MED ONE Lab/Rad Data: Laboratory Result Diagrams 12/19/22 02:31 12/19/22 02:31 Laboratory Results 12/19/22 12/19/22 12/19/22 Range/Units 02:43 02:43 02:43 WBC (4.0-10.5) x10^3/uL RBC (4.1-5.6) x10^6/uL Hgb (12.5-18.0) g/dL Hct (42-50) % MCV (78-100) fL MCH (26-32) pg MCHC (32-36) g/dL RDW (11.5-14.0) % Plt Count (150-450) x10^3/uL MPV (7.5-11.0) fL Gran % (36.0-66.0) % Immature Gran % (Auto) (0.00-0.4) % Nucleat RBC Rel Count (0.00-0.1) % Eos # (Auto) (0-0.5) x10^3/uL Immature Gran # (Auto) (0.00-0.03) x10^3u/L Absolute Lymphs (auto) (1.0-4.6) x10^3/uL Absolute Monos (auto) (0.0-1.3) x10^3/uL Absolute Nucleated RBC (0.00-0.01) x10^3u/L Lymphocytes % (24.0-44.0) % Monocytes % (0.0-12.0) % Eosinophils % (0.00-5.0) % Basophils % (0.0-0.4) % Absolute Granulocytes (1.4-6.9) x10^3/uL Basophils # (0-0.4) x10^3/uL ESR 22 H (0-15) mm/hr Sodium (137-145) mmol/L Potassium (3.5-5.1) mmol/L Chloride (98-107) mmol/L Carbon Dioxide (22-30) mmol/L Anion Gap (5-15) MEQ/L BUN (9-20) mg/dL Creatinine (0.66-1.25) mg/dL Estimated GFR ML/MIN Glucose (74-106) mg/dL Lactic Acid (0.4-2.0) Calcium (8.4-10.2) mg/dL Phosphorus (2.5-4.5) mg/dL Magnesium (1.6-2.3) mg/dL Ferritin 50.4 (17.9-464) ng/mL Total Bilirubin (0.2-1.3) mg/dL AST (17-59) U/L ALT (0-50) U/L Alkaline Phosphatase (38-126) U/L Lactate Dehydrogenase 219 (120-246) U/L Serum Total Protein (6.3-8.2) g/dL Albumin (3.5-5.0) g/dL Lipase (23-300) U/L Vitamin B12 (239-931) pg/mL Folic Acid (2.76 - >20) ng/mL TSH 3rd Generation 2.810 (0.47-4.68) mIU/L Urine Color (Yellow) Urine Appearance (Clear) Urine pH (4.6-8.0) Ur Specific [place] (1.005-1.030) Urine Protein (Negative) Urine Glucose (UA) (Negative) mg/dL Urine Ketones (Negative) Urine Blood (Negative) Urine Nitrite (Negative) Urine Bilirubin (Negative) Urine Urobilinogen (0.2) mg/dL Ur Leukocyte Esterase (Negative) U Hyaline Cast (Auto) (0-2) /LPF Urine Microscopic RBC (0-5) /HPF Urine Microscopic WBC (0-5) /HPF Ur Epithelial Cells (None Seen) /HPF Calcium Oxalate Crystal (None Seen) /HPF Urine Bacteria (None Seen) /HPF Urine Yeast (Budding) (None Seen) /HPF Urine Culture Reflexed (NO) Urine Opiates Level (NEGATIVE) Ur Methadone (NEGATIVE) Urine Barbiturates (NEGATIVE) Ur Phencyclidine (PCP) (NEGATIVE) Urine Amphetamine (NEGATIVE) U Benzodiazepine Level (NEGATIVE) Urine Cocaine (NEGATIVE) Urine Marijuana (THC) (NEGATIVE) 12/19/22 12/19/22 12/19/22 Range/Units 02:39 02:39 02:39 WBC (4.0-10.5) x10^3/uL RBC (4.1-5.6) x10^6/uL Hgb (12.5-18.0) g/dL Hct (42-50) % MCV (78-100) fL MCH (26-32) pg MCHC (32-36) g/dL RDW (11.5-14.0) % Plt Count (150-450) x10^3/uL MPV (7.5-11.0) fL Gran % (36.0-66.0) % Immature Gran % (Auto) (0.00-0.4) % Nucleat RBC Rel Count (0.00-0.1) % Eos # (Auto) (0-0.5) x10^3/uL Immature Gran # (Auto) (0.00-0.03) x10^3u/L Absolute Lymphs (auto) (1.0-4.6) x10^3/uL Absolute Monos (auto) (0.0-1.3) x10^3/uL Absolute Nucleated RBC (0.00-0.01) x10^3u/L Lymphocytes % (24.0-44.0) % Monocytes % (0.0-12.0) % Eosinophils % (0.00-5.0) % Basophils % (0.0-0.4) % Absolute Granulocytes (1.4-6.9) x10^3/uL Basophils # (0-0.4) x10^3/uL ESR (0-15) mm/hr Sodium (137-145) mmol/L Potassium (3.5-5.1) mmol/L Chloride (98-107) mmol/L Carbon Dioxide (22-30) mmol/L Anion Gap (5-15) MEQ/L BUN (9-20) mg/dL Creatinine (0.66-1.25) mg/dL Estimated GFR ML/MIN Glucose (74-106) mg/dL Lactic Acid (0.4-2.0) Calcium (8.4-10.2) mg/dL Phosphorus 3.6 (2.5-4.5) mg/dL Magnesium 2.0 (1.6-2.3) mg/dL Ferritin (17.9-464) ng/mL Total Bilirubin (0.2-1.3) mg/dL AST (17-59) U/L ALT (0-50) U/L Alkaline Phosphatase (38-126) U/L Lactate Dehydrogenase (120-246) U/L Serum Total Protein (6.3-8.2) g/dL Albumin (3.5-5.0) g/dL Lipase (23-300) U/L Vitamin B12 317 (239-931) pg/mL Folic Acid 5.41 (2.76 - >20) ng/mL TSH 3rd Generation (0.47-4.68) mIU/L Urine Color (Yellow) Urine Appearance (Clear) Urine pH (4.6-8.0) Ur Specific [place] (1.005-1.030) Urine Protein (Negative) Urine Glucose (UA) (Negative) mg/dL Urine Ketones (Negative) Urine Blood (Negative) Urine Nitrite (Negative) Urine Bilirubin (Negative) Urine Urobilinogen (0.2) mg/dL Ur Leukocyte Esterase (Negative) U Hyaline Cast (Auto) (0-2) /LPF Urine Microscopic RBC (0-5) /HPF Urine Microscopic WBC (0-5) /HPF Ur Epithelial Cells (None Seen) /HPF Calcium Oxalate Crystal (None Seen) /HPF Urine Bacteria (None Seen) /HPF Urine Yeast (Budding) (None Seen) /HPF Urine Culture Reflexed (NO) Urine Opiates Level POSITIVE (NEGATIVE) Ur Methadone NEGATIVE (NEGATIVE) Urine Barbiturates NEGATIVE (NEGATIVE) Ur Phencyclidine (PCP) NEGATIVE (NEGATIVE) Urine Amphetamine NEGATIVE (NEGATIVE) U Benzodiazepine Level NEGATIVE (NEGATIVE) Urine Cocaine NEGATIVE (NEGATIVE) Urine Marijuana (THC) NEGATIVE (NEGATIVE) 12/19/22 12/19/22 12/19/22 Range/Units 02:39 02:31 02:31 WBC 10.5 (4.0-10.5) x10^3/uL RBC 5.18 (4.1-5.6) x10^6/uL Hgb 16.2 (12.5-18.0) g/dL Hct 47.9 (42-50) % MCV 92.5 (78-100) fL MCH 31.3 (26-32) pg MCHC 33.8 (32-36) g/dL RDW 12.5 (11.5-14.0) % Plt Count 417 (150-450) x10^3/uL MPV 9.9 (7.5-11.0) fL Gran % 71.2 H (36.0-66.0) % Immature Gran % (Auto) 0.6 H (0.00-0.4) % Nucleat RBC Rel Count 0.0 (0.00-0.1) % Eos # (Auto) 0.34 (0-0.5) x10^3/uL Immature Gran # (Auto) 0.06 H (0.00-0.03) x10^3u/L Absolute Lymphs (auto) 1.66 (1.0-4.6) x10^3/uL Absolute Monos (auto) 0.89 (0.0-1.3) x10^3/uL Absolute Nucleated RBC 0.00 (0.00-0.01) x10^3u/L Lymphocytes % 15.8 L (24.0-44.0) % Monocytes % 8.5 (0.0-12.0) % Eosinophils % 3.2 (0.00-5.0) % Basophils % 0.7 (0.0-0.4) % Absolute Granulocytes 7.46 H (1.4-6.9) x10^3/uL Basophils # 0.07 (0-0.4) x10^3/uL ESR (0-15) mm/hr Sodium 137 (137-145) mmol/L Potassium 3.8 (3.5-5.1) mmol/L Chloride 97 L (98-107) mmol/L Carbon Dioxide 28 (22-30) mmol/L Anion Gap 15.8 H (5-15) MEQ/L BUN 14 (9-20) mg/dL Creatinine 0.95 (0.66-1.25) mg/dL Estimated GFR > 60.0 ML/MIN Glucose 158 H (74-106) mg/dL Lactic Acid (0.4-2.0) Calcium 9.6 (8.4-10.2) mg/dL Phosphorus (2.5-4.5) mg/dL Magnesium (1.6-2.3) mg/dL Ferritin (17.9-464) ng/mL Total Bilirubin 0.50 (0.2-1.3) mg/dL AST 36 (17-59) U/L ALT 22 (0-50) U/L Alkaline Phosphatase 124 (38-126) U/L Lactate Dehydrogenase (120-246) U/L Serum Total Protein 9.0 H (6.3-8.2) g/dL Albumin 4.6 (3.5-5.0) g/dL Lipase 59 (23-300) U/L Vitamin B12 (239-931) pg/mL Folic Acid (2.76 - >20) ng/mL TSH 3rd Generation (0.47-4.68) mIU/L Urine Color Dark Yellow (Yellow) Urine Appearance Cloudy A (Clear) Urine pH 5.5 (4.6-8.0) Ur Specific [place] 1.025 (1.005-1.030) Urine Protein 30 (Negative) Urine Glucose (UA) Negative (Negative) mg/dL Urine Ketones Trace A (Negative) Urine Blood Negative (Negative) Urine Nitrite Negative (Negative) Urine Bilirubin Small A (Negative) Urine Urobilinogen 1.0 A (0.2) mg/dL Ur Leukocyte Esterase Negative (Negative) U Hyaline Cast (Auto) 3-5 A (0-2) /LPF Urine Microscopic RBC 11-20 A (0-5) /HPF Urine Microscopic WBC 0-2 (0-5) /HPF Ur Epithelial Cells None Seen (None Seen) /HPF Calcium Oxalate Crystal 11-25 A (None Seen) /HPF Urine Bacteria None Seen (None Seen) /HPF Urine Yeast (Budding) Rare A (None Seen) /HPF Urine Culture Reflexed NO (NO) Urine Opiates Level (NEGATIVE) Ur Methadone (NEGATIVE) Urine Barbiturates (NEGATIVE) Ur Phencyclidine (PCP) (NEGATIVE) Urine Amphetamine (NEGATIVE) U Benzodiazepine Level (NEGATIVE) Urine Cocaine (NEGATIVE) Urine Marijuana (THC) (NEGATIVE) 12/19/22 Range/Units 02:27 WBC (4.0-10.5) x10^3/uL RBC (4.1-5.6) x10^6/uL Hgb (12.5-18.0) g/dL Hct (42-50) % MCV (78-100) fL MCH (26-32) pg MCHC (32-36) g/dL RDW (11.5-14.0) % Plt Count (150-450) x10^3/uL MPV (7.5-11.0) fL Gran % (36.0-66.0) % Immature Gran % (Auto) (0.00-0.4) % Nucleat RBC Rel Count (0.00-0.1) % Eos # (Auto) (0-0.5) x10^3/uL Immature Gran # (Auto) (0.00-0.03) x10^3u/L Absolute Lymphs (auto) (1.0-4.6) x10^3/uL Absolute Monos (auto) (0.0-1.3) x10^3/uL Absolute Nucleated RBC (0.00-0.01) x10^3u/L Lymphocytes % (24.0-44.0) % Monocytes % (0.0-12.0) % Eosinophils % (0.00-5.0) % Basophils % (0.0-0.4) % Absolute Granulocytes (1.4-6.9) x10^3/uL Basophils # (0-0.4) x10^3/uL ESR (0-15) mm/hr Sodium (137-145) mmol/L Potassium (3.5-5.1) mmol/L Chloride (98-107) mmol/L Carbon Dioxide (22-30) mmol/L Anion Gap (5-15) MEQ/L BUN (9-20) mg/dL Creatinine (0.66-1.25) mg/dL Estimated GFR ML/MIN Glucose (74-106) mg/dL Lactic Acid 1.9 (0.4-2.0) Calcium (8.4-10.2) mg/dL Phosphorus (2.5-4.5) mg/dL Magnesium (1.6-2.3) mg/dL Ferritin (17.9-464) ng/mL Total Bilirubin (0.2-1.3) mg/dL AST (17-59) U/L ALT (0-50) U/L Alkaline Phosphatase (38-126) U/L Lactate Dehydrogenase (120-246) U/L Serum Total Protein (6.3-8.2) g/dL Albumin (3.5-5.0) g/dL Lipase (23-300) U/L Vitamin B12 (239-931) pg/mL Folic Acid (2.76 - >20) ng/mL TSH 3rd Generation (0.47-4.68) mIU/L Urine Color (Yellow) Urine Appearance (Clear) Urine pH (4.6-8.0) Ur Specific [place] (1.005-1.030) Urine Protein (Negative) Urine Glucose (UA) (Negative) mg/dL Urine Ketones (Negative) Urine Blood (Negative) Urine Nitrite (Negative) Urine Bilirubin (Negative) Urine Urobilinogen (0.2) mg/dL Ur Leukocyte Esterase (Negative) U Hyaline Cast (Auto) (0-2) /LPF Urine Microscopic RBC (0-5) /HPF Urine Microscopic WBC (0-5) /HPF Ur Epithelial Cells (None Seen) /HPF Calcium Oxalate Crystal (None Seen) /HPF Urine Bacteria (None Seen) /HPF Urine Yeast (Budding) (None Seen) /HPF Urine Culture Reflexed (NO) Urine Opiates Level (NEGATIVE) Ur Methadone (NEGATIVE) Urine Barbiturates (NEGATIVE) Ur Phencyclidine (PCP) (NEGATIVE) Urine Amphetamine (NEGATIVE) U Benzodiazepine Level (NEGATIVE) Urine Cocaine (NEGATIVE) Urine Marijuana (THC) (NEGATIVE) - Progress Progress: improved Progress Note: Droperidol 1.25mg given for nausea, vomiting and anxiety. This helped provide relief for the patient. CT scan of head, chest and abdomen performed due to his unintentional weight loss, nausea and vomiting. CT of abdomen/pelvis showed likely metastatic spread to RPLN. Discussed results and advised f/u w/ urologist at d/c. Patient also found to have elevated BP during stay and had previously been on antihypertensives so Amlodipine was started. Patient also not on SSRI for anxiety so Lexapro was started and advised patient to f/u w/ PCP for further management. Counseled pt/family regarding: lab results, diagnosis, need for follow-up, rad results, smoking cessation Medical Desision Making - Diagnostic Testing Diagnostic test were ordered, analyzed, and reviewed by me: Yes Radiological Interpretation: Reviewed by me, Teleradiologist Report - Risk of complications The pt has a mod risk of morbidity or mortality based on: Need for prescription drug management - Departure Clinical Impression: Anxiety about health, Panic attack, Metastasis, History of prostate cancer, Nausea & vomiting, Hypertension Condition: Stable Critical Care Time: No Referrals: MYNOR SCHULTE [Primary Care Provider] - Follow up/PCP as directed Instructions: Anxiety, Adult (DC) Prescriptions: Ondansetron ODT 4 MG [Zofran Odt 4 mg] 4 mg PO Q6HPRN PRN #30 tab PRN Reason: Nausea Amlodipine Besylate 5 mg PO DAILY 30 Days #30 tablet Escitalopram Oxalate [Lexapro] 10 mg PO DAILY 30 Days #30 tablet
[2022-12-19 07:05] VITALS: BP 177/102; PULSE 61
--- NOTE | 2022-12-19 08:33 | XRAY ---
Indication: Confusion. Weight loss. History of prostate cancer. Multiple contiguous axial images obtained through the head without contrast. Comparison: April 18, 2018 Again age-appropriate global atrophy and mild periventricular degenerative micro-ischemia bilaterally. No acute intracranial hemorrhage, abnormal extra-axial fluid collection, or mass effect. Fourth ventricle is midline without hydrocephalus. Bony calvarium intact. Visualized paranasal sinuses and mastoid air cells are clear. Impression: Continued nonacute senile brain. Comment: Preliminary interpretation made by [facility]. No critical discrepancy.
--- NOTE | 2022-12-19 08:47 | XRAY ---
Indication: Confusion. Weight loss. History of prostate cancer. Multiple contiguous axial images obtained through the chest without contrast. Comparison: May 19, 2016 Lungs demonstrates mild right and minimal left dependent atelectasis. Tiny posterior left lower lobe calcified granuloma. Stable small focal calcified pleural plaquing left lung base. No infiltrate, effusion, or pneumothorax. Heart not enlarged. Aorta minimally arteriosclerotic again with 4.3 cm prominent ascending aorta. Stable small left perihilar calcified nodes. No pathologic mediastinal lymphadenopathy. Bony thorax intact with minimal degenerative changes throughout the spine. CT abdomen/pelvis reported separately. Impression: 1. Stable left lung base calcified pleural plaquing, prominent ascending thoracic aorta, and old granulomatous disease. 2. Remaining CT chest without contrast exam is negative. Common: Preliminary interpretation made by [facility]. No critical discrepancy.
--- NOTE | 2022-12-19 08:55 | XRAY ---
Indication: Abdomen pain, nausea, and vomiting. Confusion. Weight loss. History of prostate cancer. Multiple contiguous axial images obtained through the abdomen and pelvis using 80 cc Isovue 370 contrast. Comparison: April 03, 2022 CT chest reported separately. Noncontrasted stomach and bowel loops appear nonobstructed again with normal appendix. There is now mild/moderate diffuse scattered colonic fecal debris greatest in the ascending and transverse colon. New centimeter/subcentimeter scattered mid mesenteric nodes with stranding favoring adenitis. Also new prominent mesenteric root and periaortic nodes, largest anterior pericaval/periaortic measuring 2.2 x 1.3 cm. Enlarging bilateral inguinal nodes, largest on the left measuring 1.8 x 1.3 cm. No free fluid/air. Remaining liver, gallbladder, pancreas, spleen, adrenal glands, kidneys, ureters, and bladder are unremarkable. The remains mild aortoiliac calcifications without AAA. Osseous structures intact again with mild degenerative changes throughout the spine and right L5 ramila-laminectomy. No suspicious bony lesions. Stable small fatty left inguinal hernia. Impression: 1. New prominent mesenteric root, retroperitoneal, and bilateral inguinal lymph nodes. Primary versus metastatic malignancy is of primary concern. 2. New small mesenteric adenitis. 3. New moderate diffuse fecal stasis. 4. Again chronic findings including arteriosclerotic disease, chronic bony findings, and fatty left inguinal hernia. Comment: Preliminary interpretation made by [facility]. No critical discrepancy.
[2022-12-21 09:00] LABS: CEA 4.3 ng/mL (0.0-4.7)
== END 2022-12-19 07:41 | disposition home or self-care (01) ==
LOC: ED 01:47
DX: F45.9 Somatoform disorder, unspecified (principal); F41.0 Panic disorder [episodic paroxysmal anxiety]; C77.2 Secondary and unspecified malignant neoplasm of intra-abdominal lymph nodes; Z85.46 Personal history of malignant neoplasm of prostate; I10 Essential (primary) hypertension; R11.2 Nausea with vomiting, unspecified; R63.4 Abnormal weight loss; Z79.891 Long term (current) use of opiate analgesic; Z79.899 Other long term (current) drug therapy; Z72.0 Tobacco use
CPT/HCPCS: 36000; 36415; 70450; 71250; 74177; 80053; 80307; 81001; 82378; 82607; 82728; 82746; 83010; 83605; 83615; 83690; 83735; 84100; 84153; 84443; 85025; 85652; 86140; 93005; 96360; 96374; 99284